=== PATIENT | female | born 1960 | race African-American/Black ===

== ENCOUNTER 2016-12-04 11:10 | Inpatient (IN) | payer OTHER ==
[2016-12-04 13:07] VITALS: BMI 27.4
--- NOTE | 2016-12-04 17:03 | HP ---
COWS - Scale Resting Pulse: 0= CO 80 or Below Sweatin= Chills/Flushing Restless Observation: 1= Difficult to Sit Still Pupil Size: 1= Pupils >than Normal Bone or Joint Aches: 2= Severe Diffuse Aches Runny Nose/ Eye Tearin= Nasal Congestion GI Upset > 30mins: 1= Stomach Cramp Tremor Observation: 1= Tremor [place], Not Seen Yawning Observation: 1= 1-2x During Session Anxiety or Irritability: 2=Irritable/Anxious Goose Flesh Skin: 3=Piloerection COWS Score: 14 CIWA Score - CIWA Score Nausea/Vomitin-Mild Nausea/No Vomiting Muscle Tremors: 4-Moderate,w/Arms Extend Anxiety: 4-Mod. Anxious/Guarded Agitation: 4-Moderately Restless Paroxysmal Sweats: 1-Minimal Palms Moist Orientation: 1-Uncertain about Date Tacttile Disturbances: 0-None Auditory Disturbances: 0-None Visual Disturbances: 0-None Headache: 0-None Present CIWA-Ar Total Score: 15 Admission ROS S - HPI Chief Complaint: withdrawal sx patient requests methadone for opiate detox, librium for alcohol and ativan detox, "valium makes me sleepy" Allergies/Adverse Reactions: Allergies Allergy/AdvReac Type Severity Reaction Status Date / Time ketorolac tromethamine Allergy Severe Itching Verified 12/04/16 18:21 [From Toradol] penicillin G Allergy Severe Itching Verified 12/04/16 18:21 History of Present Illness: 56 years old female with long history of alcohol opiate ativan nicotine dependence, has gerd, asthma, pre diabetes dietary control, neuropathy, lower back pain x 10 years, and bipolar ii is admitted to detox Exam Limitations: No Limitations - Ebola screening Have you traveled outside of the country in the last 21 days: No Have you had contact with anyone from an Ebola affected area: No Have you been sick,other than usual withdrawal symptoms: No Do you have a fever: No - Review of Systems Constitutional: Chills, Changes in sleep, Weight Stable EENT: reports: Dental Problems (upper and lower denture) Respiratory: reports: SOB with Exertion (treated with prednison and antibiotic "few days ago") Cardiac: reports: No Symptoms Reported GI: reports: Constipated, Nausea, Poor Fluid Intake, Indigestion, Abdominal cramping : reports: No Symptoms Reported Musculoskeletal: reports: Back Pain (chronic back pain x 10+ years), Joint Pain (both feet joints callus removal 10/2016) Integumentary: reports: Change in Color, Change in Hair/Nails (right and left feet toes) Neuro: reports: Tremors Endocrine: reports: No Symptoms Reported Hematology: reports: No Symptoms Reported Psychiatric: reports: Judgement Intact, Anxious, Depressed Other Systems: Reviewed and Negative Patient History - Patient Medical History Hx Anemia: No Hx Asthma: Yes Hx Chronic Obstructive Pulmonary Disease (COPD): No Hx Cancer: No Hx Cardiac Disorders: No Hx Congestive Heart Failure: No Hx Hypertension: No Hx Hypercholesterolemia: No Hx Pacemaker: No HX Cerebrovascular Accident: No Hx Seizures: No Hx Dementia: No Hx Diabetes: Yes (dietary control) Hx Gastrointestinal Disorders: Yes Hx Liver Disease: No Hx Genitourinary Disorders: No Hx Sexually Transmitted Disorders: No Hx Renal Disease (ESRD): No Hx Thyroid Disease: No Hx Human Immunodeficiency Virus (HIV): No Hx Hepatitis C: No Hx Depression: No (on Celexa) Hx Suicide Attempt: Yes (2011 overdose) Hx Bipolar Disorder: Yes Hx Schizophrenia: No - Patient Surgical History Past Surgical History: Yes Hx Neurologic Surgery: No Hx Cataract Extraction: No Hx Cardiac Surgery: No Hx Lung Surgery: No Hx Breast Surgery: No Hx Breast Biopsy: No Hx Abdominal Surgery: No Hx Appendectomy: No Hx Cholecystectomy: No Hx Genitourinary Surgery: No Hx Section: No Hx Orthopedic Surgery: Yes (knees replaced ) Hx Hysterectomy: Yes (2003) Other Surgical History: 2016 Anesthesia Reaction: No - PPD History Previous Implant?: Yes Documented Results: Negative w/o proof Implanted On Prior [facility] Admission?: Yes Date: 08/04/15 PPD to be Administered?: Yes - Reproductive History Patient is a Female of Child Bearing Age (11 -55 yrs old): No Last Menstrual Period: 08/15/07 Patient : No - Smoking Cessation Smoking history: Current every day smoker Have you smoked in the past 12 months: Yes Aproximately how many cigarettes per day: 15 Cigars Per Day: 0 Hx Chewing Tobacco Use: No Initiated information on smoking cessation: Yes 'Breaking Loose' booklet given: 12/04/16 - Substance & Tx. History Hx Alcohol Use: Yes Hx Substance Use: Yes Substance Use Type: Alcohol, Opiates, Tranquilizers Hx Substance Use Treatment: Yes - Substances Abused Alcohol Route: Oral Frequency: Daily Amount used: fifth volka Age of first use: 12 Date of Last Use: 12/04/16 Benzodiazepine (ativan Route: Oral Frequency: Daily Age of first use: 54 Date of Last Use: 12/04/16 endocet Route: Oral Frequency: Daily Age of first use: 53 Date of Last Use: 12/04/16 Family Disease History - Family Disease History Family Disease History: Diabetes: Sister, Heart Disease: Mother, Sister, Daughter, Other: Father (no contact) Admission Physical Exam S - Vital Signs Vital Signs: Vital Signs - 24 hr 12/04/16 13:04 Temperature 97 F L Pulse Rate 68 Respiratory 20 Rate Blood Pressure 123/71 - Physical General Appearance: Yes: Nourished, Appropriately Dressed, Mild Distress, Tremorous, Irritable, Sweating, Anxious HEENTM: Yes: Hearing grossly Normal, Normal ENT Inspection, Normocephalic, Normal Voice Respiratory: Yes: Chest Non-Tender, No Respiratory Distress, No Accessory Muscle Use, Wheezing, Expiration Neck: Yes: Supple, Trachea in good position Breast: Yes: Breasts Symetrical Cardiology: Yes: Regular Rhythm, Regular Rate, S1, S2 Abdominal: Yes: Non Tender, Soft, Decreased BS Genitourinary: Yes: Within Normal Limits Back: Yes: Normal Inspection Musculoskeletal: Yes: Gait Steady, Back pain, Joint swelling (right toe), Muscle Pain (right knee) Extremities: Yes: Non-Tender, Tremors 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: Yes: Alert, Motor Strength 5/5, Depressed Affect Integumentary: Yes: Warm, Other (right foot hyperpigmented post callus removal) Lymphatic: Yes: Within Normal Limits - Diagnostic (1) Bronchial asthma Current Visit: Yes Status: Acute Qualifiers: Asthma severity: mild intermittent Asthma complication type: with acute exacerbation Qualified Code(s): J45.21 - Mild intermittent asthma with (acute) exacerbation Comment: treated with antibiotic and prednison last dose "few weeks ago" (2) Alcohol dependence with uncomplicated withdrawal Current Visit: Yes Status: Acute (3) Opioid dependence with withdrawal Current Visit: Yes Status: Acute (4) Sedative, hypnotic or anxiolytic dependence with withdrawal, uncomplicated Current Visit: Yes Status: Acute (5) GERD (gastroesophageal reflux disease) Current Visit: Yes Status: Acute Qualifiers: Esophagitis presence: without esophagitis Qualified Code(s): K21.9 - Gastro-esophageal reflux disease without esophagitis (6) Pre-diabetes Current Visit: Yes Status: Acute Comment: dietary control (7) Neuropathic arthropathy Current Visit: Yes Status: Acute Comment: lyrica 300 mg po bid (8) Constipation Current Visit: Yes Status: Acute Qualifiers: Constipation type: slow transit constipation Qualified Code(s): K59.01 - Slow transit constipation (9) Bipolar II disorder Current Visit: Yes Status: Suspected Cleared for Admission [facility] - Detox or Rehab [facility] Level of Care: Medically Managed Detox Regimen/Protocol: Methadone/Librium [facility] Breath Alcohol Content Breath Alcohol Content: 0 Urine Pregancy Test - Result Urine Test Results: Negative- NO Line Present Urine Drug Screen - Results Drug Screen Negative: No Urine Drug Screen Results: BZO-Benzodiazepines, OXY-Oxycodone
[2016-12-04] MEDS ORDERED: MAGNESIUM HYDROX 2400MG/30ML ORAL SUSPENSION 30 ML CUP PO PRN (17:30)
[2016-12-04] MEDS ORDERED: MAG HYDROX/AL HYDROX/SIMETH 30 ML UNIT-DOSE CUP PO PRN (17:30)
[2016-12-04] MEDS ORDERED: MAGNESIUM CITRATE 300 ML BOTTLE PO PRN (17:30)
[2016-12-04] MEDS ORDERED: chlordiazePOXIDE HCL 25 MG CAPSULE PO PRN (17:30)
[2016-12-04] MEDS ORDERED: guaiFENesin/D-METHORPHAN HB 10 ML UNIT-DOSE CUPS PO PRN (17:30)
[2016-12-04] MEDS ORDERED: P-EPHED 60MG/TRIPROLIDI 2.5MG TABLET PO PRN (17:30)
[2016-12-04] MEDS ORDERED: LOPERAMIDE HCL 2 MG CAPSULE PO PRN (17:30)
[2016-12-04] MEDS ORDERED: NICOTINE POLACRILEX 4 MG GUM BUC PRN (17:30)
[2016-12-04] MEDS ORDERED: MENTHOL/PHENOL 1 EACH UD MM PRN (17:30)
[2016-12-04] MEDS ORDERED: ACETAMINOPHEN 325 MG TABLET (FP) PO PRN (17:30)
[2016-12-04] MEDS ORDERED: ALBUTEROL SO4 6.7 GM HFA INHALER IH PRN (17:34)
[2016-12-04] MEDS ORDERED: METHADONE HCL 10 MG TABLET (FOR DETOX USE ONLY) PO ONE ×2 (18:45→23:00)
[2016-12-04] MEDS ORDERED: diphenhydrAMINE HCL 50 MG CAPSULE PO PRN (22:00)
[2016-12-04] MEDS: PREGABALIN 75 MG CAPSULE PO SCH (22:15)
[2016-12-04] MEDS: THIAMINE HCL 100 MG TABLET (FP) PO SCH (22:15)
[2016-12-04] MEDS: PANTOPRAZOLE 40 MG TABLET (FP) PO SCH (22:16)
[2016-12-04] MEDS: chlordiazePOXIDE HCL 25 MG CAPSULE PO SCH (22:16)
[2016-12-04] MEDS: MONTELUKAST NA 10 MG TABLET PO SCH (22:18)
[2016-12-04] MEDS: BUDESONIDE/FORMETEROL FUMARATE 160/4.5 mcg INHALER IH SCH (23:26)
[2016-12-05 00:13] LABS: URINE APPEARANCE CLEAR; URINE BILIRUBIN NEGATIVE (NEGATIVE); URINE BLOOD NEGATIVE (NEGATIVE); URINE COLOR LTYELLOW; URINE GLUCOSE (UA) NEGATIVE (NEGATIVE); URINE KETONE NEGATIVE (NEGATIVE); URINE LEUK ESTERASE NEGATIVE (NEGATIVE); URINE NITRITE NEGATIVE (NEGATIVE); URINE PROTEIN NEGATIVE (NEGATIVE); URINE UROBILINOGEN NEGATIVE E.U./dl (0.2-1.0)
[2016-12-05] MEDS: LACTULOSE 20 GM/30 ML UDC (FOR ORAL USE ONLY) PO PRN (02:19)
[2016-12-05] MEDS: ALBUTEROL SO4 6.7 GM HFA INHALER IH PRN ×3 (03:29→22:40)
[2016-12-05] MEDS: chlordiazePOXIDE HCL 25 MG CAPSULE PO SCH ×4 (05:43→22:41)
[2016-12-05] MEDS: ALBUTEROL SO4 2.5/IPRATROPIUM 0.5 INH SOL 3 ML VIAL.NEB. NEB PRN (08:10)
[2016-12-05] MEDS ORDERED: NICOTINE 21 MG/24 HOURS TOPICAL PATCH TD SCH (10:00)
[2016-12-05] MEDS ORDERED: METHADONE HCL 10 MG TABLET (FOR DETOX USE ONLY) PO SCH (10:00)
[2016-12-05] MEDS: PANTOPRAZOLE 40 MG TABLET (FP) PO SCH ×2 (10:29→22:41)
[2016-12-05] MEDS: PRENATAL VITAMINS W/ FOLIC ACID TABLET (FP) PO SCH (10:29)
[2016-12-05] MEDS: PREGABALIN 75 MG CAPSULE PO SCH ×2 (10:30→22:41)
[2016-12-05 10:31] LABS: MCH 30.4 pg (25.7-33.7); MEAN CELL VOLUME 92.4 fl (80-96); MEAN PLT VOLUME 9.4 fl (7.5-11.1); PLATELET COUNT 158 K/MM3 (134-434); RDW 14.5 % (11.6-15.6); WHITE BLOOD COUNT 6.4 K/mm3 (4.0-10.0)
[2016-12-05] MEDS: BUDESONIDE/FORMETEROL FUMARATE 160/4.5 mcg INHALER IH SCH ×2 (10:31→22:40)
[2016-12-05 10:58] LABS: ALBUMIN 3.2 g/dl (3.4-5.0); ALK PHOS 61 U/L (45-117); ANION GAP 8 (8-16); BILIRUBIN,TOTAL 0.4 mg/dL (0.2-1.0); CALCIUM 8.6 mg/dL (8.5-10.1); CO2 28 mmol/L (21-32); COCKROFT - GAULT 104.7625; CREATININE 0.7 mg/dL (0.55-1.02); GLUCOSE,RANDOM 97 mg/dL (74-106); SGOT/AST 18 U/L (15-37); SGPT/ALT 29 U/L (12-78); TOT PROT 5.7 g/dl (6.4-8.2)
[2016-12-05] MEDS: NICOTINE TD SCH (12:36)
--- NOTE | 2016-12-05 13:03 | PN ---
S CIWA - CIWA Score Nausea/Vomitin Muscle Tremors: 3 Anxiety: 3 Agitation: 2 Paroxysmal Sweats: 1-Minimal Palms Moist Orientation: 0-Oriented Tacttile Disturbances: 1-Very Mild Itch/Numbness Auditory Disturbances: 1-Very Mild Visual Disturbances: 1-Very Mild Sensitivity Headache: 2-Mild CIWA-Ar Total Score: 17 [facility] Progress Note (SOAP) Subjective: ALERT,IRRITABLE,ANXIOUS,INTERRUPTED SLEEP,PAIN IN THE BODY AND BACK Objective: 12/05/16 13:01 Vital Signs Temperature 97.9 F 12/05/16 06:34 Pulse Rate 56 L 12/05/16 10:21 Respiratory Rate 16 12/05/16 10:21 Blood Pressure 120/66 12/05/16 10:21 O2 Sat by Pulse Oximetry (%) EKG NSR,NORMAL ECG Laboratory Last Values WBC 6.4 K/mm3 (4.0-10.0) 12/05/16 08:00 RBC 4.07 M/mm3 (3.60-5.2) 12/05/16 08:00 Hgb 12.4 GM/dL (10.7-15.3) D 12/05/16 08:00 Hct 37.5 % (32.4-45.2) D 12/05/16 08:00 MCV 92.4 fl (80-96) 12/05/16 08:00 MCHC 33.0 g/dl (32.0-36.0) 12/05/16 08:00 RDW 14.5 % (11.6-15.6) 12/05/16 08:00 Plt Count 158 K/MM3 (134-434) D 12/05/16 08:00 MPV 9.4 fl (7.5-11.1) 12/05/16 08:00 Sodium 144 mmol/L (136-145) 12/05/16 08:00 Potassium 4.4 mmol/L (3.5-5.1) 12/05/16 08:00 Chloride 108 mmol/L (98-107) H 12/05/16 08:00 Carbon Dioxide 28 mmol/L (21-32) 12/05/16 08:00 Anion Gap 8 (8-16) 12/05/16 08:00 BUN 19 mg/dL (7-18) H 12/05/16 08:00 Creatinine 0.7 mg/dL (0.55-1.02) 12/05/16 08:00 Creat Clearance w eGFR > 60 (>60) 12/05/16 08:00 Random Glucose 97 mg/dL (74-106) 12/05/16 08:00 Calcium 8.6 mg/dL (8.5-10.1) 12/05/16 08:00 Total Bilirubin 0.4 mg/dL (0.2-1.0) 12/05/16 08:00 AST 18 U/L (15-37) 12/05/16 08:00 ALT 29 U/L (12-78) D 12/05/16 08:00 Alkaline Phosphatase 61 U/L (45-117) D 12/05/16 08:00 Total Protein 5.7 g/dl (6.4-8.2) L 12/05/16 08:00 Albumin 3.2 g/dl (3.4-5.0) L D 12/05/16 08:00 Urine Color Ltyellow 12/04/16 21:16 Urine Appearance Clear 12/04/16 21:16 Urine pH 5.0 (5.0-8.0) 12/04/16 21:16 Ur Specific [place] 1.024 (1.001-1.035) 12/04/16 21:16 Urine Protein Negative (NEGATIVE) 12/04/16 21:16 Urine Glucose (UA) Negative (NEGATIVE) 12/04/16 21:16 Urine Ketones Negative (NEGATIVE) 12/04/16 21:16 Urine Blood Negative (NEGATIVE) 12/04/16 21:16 Urine Nitrite Negative (NEGATIVE) 12/04/16 21:16 Urine Bilirubin Negative (NEGATIVE) 12/04/16 21:16 Urine Urobilinogen Negative E.U./dl (0.2-1.0) 12/04/16 21:16 Ur Leukocyte Esterase Negative (NEGATIVE) 12/04/16 21:16 RPR Titer Nonreactive (NONREACTIVE) 12/05/16 08:00 Assessment: 12/05/16 13:02 WITHDRAWAL SYMPTOM Plan: CONTINUE DETOX
--- NOTE | 2016-12-05 17:07 | CONSULT ---
[facility] Psychiatric Consult - Data Date of interview: 12/05/16 Admission source: [facility] Identifying data: Readmission to [facility] for this 56 y/o AA female seeking detox treatment for alcohol,benzodiazepine and opiate dependence.Patient is ,a mother of five,domiciled,unemployed and supported on SSI benefits. Substance Abuse History: - Smoking Cessation. Smoking history: Current every day smoker. Have you smoked in the past 12 months: Yes. Aproximately how many cigarettes per day: 15. Cigars Per Day: 0. Hx Chewing Tobacco Use: No. Initiated information on smoking cessation: Yes. 'Breaking Loose' booklet given : 12/04/16. - Substance & Tx. History. Hx Alcohol Use: Yes. Hx Substance Use : Yes. Substance Use Type: Alcohol, Opiates, Tranquilizers. Hx Substance Use Treatment: Yes. - Substances Abused. Alcohol. Route: Oral. Frequency: Daily. Amount used: fifth volka. Age of first use: 12. Date of Last Use: . Benzodiazepine (ativan. Route: Oral. Frequency: Daily. Age of first use: 54. Date of Last Use: 12/04/16. endocet. Route: Oral. Frequency: Daily. Age of first use: 53. Date of Last Use: 12/04/16. Confirmed by patient. Medical History: History of bilateral kne replacement,GERD,diabetes mellitus ( diet-controlled),neuropathy,arthritis irritable bowel syndrome and bronchial asthma.Hysterectomy in 2003. Psychiatric History: No history of psychiatric hospitalizations.Diagnosed with Bipolar Disorder,Panic Disorder,PTSD (confirmed by referral letter;copy in chart ).Ms Esteves is followed by [facility] in [facility] ([phone]).Prescribed celexa 20 mg/day + ambien 10 mg/ hs + abilify 5 mg/day.No reported history of suicide attempts. Physical/Sexual Abuse/Trauma History: Not discussed by patient. Additional Comment: Urine Drug Screen Results: BZO-Benzodiazepines, OXY- Oxycodone.Noted. Mental Status Exam - Mental Status Exam Alert and Oriented to: Time (partial orietation to time :monnth,year,day of week but not exact date), Place, Person Cognitive Function: Impaired Patient Appearance: Well Groomed Mood: Withdrawn Affect: Mood Congruent, Constricted Patient Behavior: Sedated, Fatigued, Cooperative (marginally cooperative) Speech Pattern: Delayed, Slurred, Garbled (at times) Voice Loudness: Moderately Soft/Quiet Thought Process: Disorganized, Disoriented Thought Disorder: Not Present Hallucinations: Denies Suicidal Ideation: Denies Homicidal Ideation: Denies Insight/Judgement: Poor Sleep: Fair Appetite: Good Muscle strength/Tone: Normal Gait/Station: Other (unsteady gait observed earlier due to sedation) Psychiatric Findings - Problem List ([place] 1, 2,3) (1) Alcohol dependence with uncomplicated withdrawal Current Visit: Yes Status: Acute (2) Opioid dependence with withdrawal Current Visit: Yes Status: Acute (3) Sedative, hypnotic or anxiolytic dependence with withdrawal, uncomplicated Current Visit: Yes Status: Acute (4) Nicotine dependence Current Visit: No Status: Acute Qualifiers: Nicotine product type: cigarettes Substance use status: uncomplicated Qualified Code(s): F17.210 - Nicotine dependence, cigarettes, uncomplicated (5) Bipolar disorder Current Visit: Yes Status: Chronic (6) Post traumatic stress disorder (PTSD) Current Visit: Yes Status: Chronic Comment: According to her psychiatrist,Dr Romina Tejeda. (7) Panic disorder Current Visit: No Status: Chronic Comment: As per Dr Romina Tejeda. (8) Bronchial asthma Current Visit: Yes Status: Chronic Qualifiers: Asthma severity: mild intermittent Asthma complication type: with acute exacerbation Qualified Code(s): J45.21 - Mild intermittent asthma with (acute) exacerbation Comment: treated with antibiotic and prednison last dose "few weeks ago" (9) GERD (gastroesophageal reflux disease) Current Visit: Yes Status: Chronic Qualifiers: Esophagitis presence: without esophagitis Qualified Code(s): K21.9 - Gastro-esophageal reflux disease without esophagitis (10) Neuropathic arthropathy Current Visit: Yes Status: Chronic Comment: lyrica 300 mg po bid (11) Pre-diabetes Current Visit: Yes Status: Acute Comment: dietary control (12) Arthritis Current Visit: Yes Status: Chronic - Initial Treatment Plan Initial Treatment Plan: Psychoeducation.Detoxification.Medications (celexa, ambien) are held due to marked sedation.Observation.
[2016-12-05] MEDS: THIAMINE HCL 100 MG TABLET (FP) PO SCH (22:40)
[2016-12-05] MEDS: MONTELUKAST NA 10 MG TABLET PO SCH (22:41)
[2016-12-06] MEDS: chlordiazePOXIDE HCL 25 MG CAPSULE PO SCH ×3 (06:02→17:27)
[2016-12-06] MEDS: ALBUTEROL SO4 6.7 GM HFA INHALER IH PRN ×3 (06:16→23:00)
[2016-12-06] MEDS: LACTULOSE 20 GM/30 ML UDC (FOR ORAL USE ONLY) PO PRN ×2 (06:18→23:16)
[2016-12-06] MEDS: PRENATAL VITAMINS W/ FOLIC ACID TABLET (FP) PO SCH (10:07)
[2016-12-06] MEDS: PANTOPRAZOLE 40 MG TABLET (FP) PO SCH ×2 (10:07→23:03)
[2016-12-06] MEDS: NICOTINE TD SCH (10:07)
[2016-12-06] MEDS: BUDESONIDE/FORMETEROL FUMARATE 160/4.5 mcg INHALER IH SCH ×2 (10:08→23:00)
[2016-12-06] MEDS: PREGABALIN 75 MG CAPSULE PO SCH ×2 (10:08→23:01)
[2016-12-06] MEDS: METHADONE HCL 5 MG TABLET (FOR DETOX USE ONLY) PO SCH (10:09)
--- NOTE | 2016-12-06 14:45 | PN ---
[facility] CIWA - CIWA Score Nausea/Vomitin Muscle Tremors: 3 Anxiety: 2 Agitation: 3 Paroxysmal Sweats: 1-Minimal Palms Moist Orientation: 0-Oriented Tacttile Disturbances: 1-Very Mild Itch/Numbness Auditory Disturbances: 1-Very Mild Visual Disturbances: 1-Very Mild Sensitivity Headache: 2-Mild CIWA-Ar Total Score: 17 [facility] COWS - Scale Resting Pulse: 1= [place] 81-100 Sweatin= Chills/Flushing Restless Observation: 3= Extraneous Movement Pupil Size: 1= Pupils >than Normal Bone or Joint Aches: 2= Severe Diffuse Aches Runny Nose/ Eye Tearin= Runny Nose/Eyes GI Upset > 30mins: 2= Nausea/Diarrhea Tremor Observation of Outstretched Hands: 2= Slight Tremor Visible Yawning Observation: 1= 1-2x During Session Anxiety or Irritability: 2=Irritable/Anxious Goose Flesh Skin: 0=Smooth Skin COWS Score: 17 [facility] Progress Note (SOAP) Subjective: ALERT,IRRITABLE,ANXIOUS,INTERRUPTED SLEEP,TREMOR,PAIN IN THE BODY,BACK,RIGHT KNEE,RIGHT FOOT Objective: 12/06/16 14:45 Vital Signs Temperature 97 F L 12/06/16 14:20 Pulse Rate 49 L 12/06/16 14:20 Respiratory Rate 18 12/06/16 14:20 Blood Pressure 129/73 12/06/16 14:20 O2 Sat by Pulse Oximetry (%) Assessment: 12/06/16 14:45 WITHDRAWAL SYMPTOM Plan: CONTINUE DETOX
[2016-12-06] MEDS: HYDROCORTISONE 1% TOPICAL CREAM 30 GM TUBE TP SCH ×2 (15:26→23:02)
[2016-12-06] MEDS: ALBUTEROL SO4 2.5/IPRATROPIUM 0.5 INH SOL 3 ML VIAL.NEB. NEB PRN (17:22)
[2016-12-06] MEDS: CYCLOBENZAPRINE HCL 10 MG TABLET (FP) PO PRN (23:02)
[2016-12-06] MEDS: chlordiazePOXIDE 5 MG CAPSULE PO SCH (23:02)
[2016-12-06] MEDS: THIAMINE HCL 100 MG TABLET (FP) PO SCH (23:03)
[2016-12-06] MEDS: MONTELUKAST NA 10 MG TABLET PO SCH (23:03)
[2016-12-07] MEDS: chlordiazePOXIDE 5 MG CAPSULE PO SCH ×3 (06:03→18:08)
--- NOTE | 2016-12-07 08:47 | EKG ---
Test Reason : Blood Pressure : / mmHG Vent. Rate : 060 BPM Atrial Rate : 060 BPM P-R Int : 148 ms QRS Dur : 080 ms QT Int : 420 ms P-R-T Axes : 066 026 031 degrees QTc Int : 420 ms NORMAL SINUS RHYTHM NORMAL ECG NO PREVIOUS ECGS AVAILABLE Confirmed by ASUNCION TILLMAN MD ([id number]) on 12/07/2016 8:47:17 AM Referred By: Confirmed By:ASUNCION TILLMAN MD
[2016-12-07] MEDS ORDERED: ZOLPIDEM TARTRATE 10 MG TABLET (PARK CARE ONLY) PO PRN (09:10)
--- NOTE | 2016-12-07 09:17 | PN ---
Psychiatric Progress Note Vital Signs: Vital Signs Period Temp Pulse Resp BP Sys/[place] Pulse Ox Last 24 Hr 97 F-97.9 F 49-58 16-18 104-129/64-73 Date of Session: 12/07/16 Chief Complaint:: My medications HPI: Patient reprots taking prior to admission: Abilify 2mg poqd. Celexa 40mg poqd. Ambien 10mg po qhs. Reports did not started medications on admission due to oversedation on admission Current Medications: Active Medications Generic Name Dose Route Start Last Admin Trade Name Freq PRN Reason Stop Dose Admin Acetaminophen 650 mg 12/04/16 17:30 Tylenol - PO Q4H PRN FEVER OR PAIN Al Hydroxide/Mg Hydroxide 30 ml 12/04/16 17:30 Mylanta Oral Suspension - PO Q6H PRN DYSPEPSIA Albuterol Sulfate 2 puff 12/05/16 02:38 12/06/16 23:00 Ventolin Hfa Inhaler - IH 2 puff Q4H PRN Administration SHORT OF BREATH/WHEEZING Albuterol/Ipratropium 1 amp 12/04/16 17:34 12/06/16 17:22 Duoneb - NEB 1 amp Q6H PRN Administration SHORTNESS OF BREATH Aripiprazole 2 mg 12/07/16 10:00 Abilify PO DAILY EMILIANO Budesonide/Formoterol Fumarate 1 puff 12/04/16 22:00 12/06/16 23:00 Symbicort 160/4.5mcg - IH 1 puff BID EMILIANO Administration Chlordiazepoxide HCl 10 mg 12/07/16 23:00 Librium - PO 12/08/16 17:01 [id number] EMILIANO Chlordiazepoxide HCl 25 mg 12/04/16 17:30 12/05/16 01:55 Librium - PO 12/07/16 17:32 25 mg Q4H PRN Administration WITHDRAWAL(CONT SUBST) Chlordiazepoxide HCl 15 mg 12/06/16 23:00 12/07/16 06:03 Librium - PO 12/07/16 17:01 15 mg [id number] EMILIANO Administration Citalopram Hydrobromide 40 mg 12/07/16 10:00 Celexa - PO DAILY EMILIANO Cyclobenzaprine HCl 10 mg 12/06/16 10:22 12/06/16 23:02 Flexeril - PO 10 mg TID PRN Administration MUSCLE SPASMS Diphenhydramine HCl 50 mg 12/04/16 22:00 Benadryl - PO HSMR1 PRN INSOMNIA Eucalyptus/Menthol/Phenol/Sorbitol 1 each 12/04/16 17:30 Cepastat Lozenge - MM Q4H PRN SORE THROAT Guaifenesin 10 ml 12/04/16 17:30 12/06/16 06:16 Robitussin Dm - PO 10 ml Q6H PRN Administration COUGH Hydrocortisone 1 applic 12/06/16 14:00 12/06/16 23:02 Hytone 1% Cream - TP 1 applic TID EMILIANO Administration Lactulose 20 gm 12/04/16 17:35 12/06/16 23:16 Cephulac (Oral Use) PO 20 gm BID PRN Administration CONSTIPATION Loperamide HCl 4 mg 12/04/16 17:30 Imodium - PO Q6H PRN DIARRHEA Magnesium Citrate 300 ml 12/04/16 17:30 Citroma - PO Q48H PRN CONSTIPATION Magnesium Hydroxide 30 ml 12/04/16 17:30 Milk Of Magnesia - PO DAILY PRN CONSTIPATION Methadone HCl 10 mg 12/08/16 10:00 Dolophine - PO 12/08/16 10:01 DAILY EMILIANO Methadone HCl 15 mg 12/06/16 10:00 12/06/16 10:09 Dolophine - PO 12/07/16 10:01 15 mg DAILY EMILIANO Administration Methadone HCl 5 mg 12/09/16 06:00 Dolophine - PO 12/09/16 06:01 DAILY@0600 EMILIANO Montelukast Sodium 10 mg 12/04/16 22:00 12/06/16 23:03 Singulair - PO 10 mg HS EMILIANO Administration Nicotine Polacrilex 4 mg 12/04/16 17:30 Nicorette Gum - BUC Q2H PRN NICOTINE REPLACEMENT RX Non-Formulary Medication 1 each 12/05/16 10:00 12/06/16 10:07 Nicotine [Nicotine Patch] TD 1 each DAILY EMILIANO Administration Non-Formulary Medication 2 puff 12/05/16 11:55 12/06/16 15:50 Albuterol Sulfate Inhaler - [Ventolin Hfa Inhaler -] IH 2 puff Q4H PRN Administration ASTHMA Pantoprazole Sodium 40 mg 12/04/16 22:00 12/06/16 23:03 Protonix - PO 40 mg BID EMILIANO Administration Pregabalin 300 mg 12/04/16 22:00 12/06/16 23:01 Lyrica - PO 12/11/16 10:01 300 mg BID EMILIANO Administration Multivit/Folic Acid/Iron 1 tab 12/05/16 10:00 12/06/16 10:07 Vitamins (Sjr) - PO 1 tab DAILY EMILIANO Administration Pseudoephedrine/Triprolidine 1 combo 12/04/16 17:30 Actifed - PO TID PRN NASAL CONGESTION Thiamine HCl 100 mg 12/04/16 22:00 12/06/16 23:03 Vitamin B1 - PO 100 mg HS EMILIANO Administration Zolpidem Tartrate 10 mg 12/07/16 09:10 Ambien - PO HS PRN INSOMNIA Medication(s) Change(s): Abilify 2mg poqd. Celexa 40mg poqd. Ambien 10mg po qhs Mental Status Exam - Mental Status Exam Alert and Oriented to: Person Cognitive Function: Fair Patient Appearance: Well Groomed Mood: Anxious Affect: Mood Congruent Patient Behavior: Cooperative Speech Pattern: Appropriate Voice Loudness: Mildly Soft/Quiet Thought Process: Goal Oriented Thought Disorder: Being Controlled Hallucinations: Denies Suicidal Ideation: Denies Homicidal Ideation: Denies Sleep: Difficulty falling asleep Appetite: Weight loss Muscle strength/Tone: Normal Gait/Station: Shuffling Additional Comments: Abilify 2mg poqd. Celexa 40mg poqd. Ambien 10mg po qhs Psychiatric Treatment Plan - Problem List (1) Alcohol dependence with uncomplicated withdrawal Current Visit: Yes (2) Opioid dependence with withdrawal Current Visit: Yes (3) Sedative, hypnotic or anxiolytic dependence with withdrawal, uncomplicated Current Visit: Yes (4) Bipolar disorder Current Visit: Yes (5) Neuropathic arthropathy Current Visit: Yes Comment: lyrica 300 mg po bid (6) Bipolar II disorder Current Visit: Yes (7) Nicotine dependence Current Visit: No Qualifiers: Nicotine product type: cigarettes Substance use status: uncomplicated Qualified Code(s): F17.210 - Nicotine dependence, cigarettes, uncomplicated (8) EtOH dependence Current Visit: No Qualifiers: Complication of substance-induced condition: uncomplicated (9) Opiate dependence Current Visit: No Qualifiers: Complication of substance-induced condition: uncomplicated (10) Panic disorder Current Visit: No Comment: As per Dr Romina Tejeda. Initial treatment plan: Abilify 2mg poqd. Celexa 40mg poqd. Ambien 10mg po qhs
[2016-12-07] MEDS ORDERED: TRIMETHOBENZAMIDE HCL 200MG/2ML INJ IM ONE (10:25)
[2016-12-07] MEDS: CITALOPRAM HYDROBROMIDE 20 MG TABLET (FP) PO SCH (11:00)
[2016-12-07] MEDS: PRENATAL VITAMINS W/ FOLIC ACID TABLET (FP) PO SCH (11:00)
[2016-12-07] MEDS: PANTOPRAZOLE 40 MG TABLET (FP) PO SCH ×2 (11:00→22:57)
[2016-12-07] MEDS: BUDESONIDE/FORMETEROL FUMARATE 160/4.5 mcg INHALER IH SCH ×2 (11:01→23:02)
[2016-12-07] MEDS: ARIPiprazole 2 MG TABLET PO SCH (11:02)
[2016-12-07] MEDS: METHADONE HCL 5 MG TABLET (FOR DETOX USE ONLY) PO SCH (11:02)
[2016-12-07] MEDS: NICOTINE TD SCH (11:06)
--- NOTE | 2016-12-07 11:56 | PN ---
[facility] Progress Note (SOAP) Subjective: interrupted sleep, sweats,constipation Objective: 12/07/16 11:53 Vital Signs Temperature 98.2 F 12/07/16 11:46 Pulse Rate 57 L 12/07/16 11:46 Respiratory Rate 16 12/07/16 11:46 Blood Pressure 115/72 12/07/16 11:46 O2 Sat by Pulse Oximetry (%) Laboratory Tests 12/04/16 12/05/16 12/05/16 21:16 08:00 08:00 WBC 6.4 RBC 4.07 Hgb 12.4 D Hct 37.5 D MCV 92.4 MCHC 33.0 RDW 14.5 Plt Count 158 D MPV 9.4 Sodium 144 Potassium 4.4 Chloride 108 H Carbon Dioxide 28 Anion Gap 8 BUN 19 H Creatinine 0.7 Creat Clearance w eGFR > 60 POC Glucometer Random Glucose 97 Calcium 8.6 Total Bilirubin 0.4 AST 18 ALT 29 D Alkaline Phosphatase 61 D Total Protein 5.7 L Albumin 3.2 L D Urine Color Ltyellow Urine Appearance Clear Urine pH 5.0 Ur Specific [place] 1.024 Urine Protein Negative Urine Glucose (UA) Negative Urine Ketones Negative Urine Blood Negative Urine Nitrite Negative Urine Bilirubin Negative Urine Urobilinogen Negative Ur Leukocyte Esterase Negative RPR Titer 12/05/16 12/06/16 12/07/16 08:00 06:05 10:53 WBC RBC Hgb Hct MCV MCHC RDW Plt Count MPV Sodium Potassium Chloride Carbon Dioxide Anion Gap BUN Creatinine Creat Clearance w eGFR POC Glucometer 88 125 Random Glucose Calcium Total Bilirubin AST ALT Alkaline Phosphatase Total Protein Albumin Urine Color Urine Appearance Urine pH Ur Specific [place] Urine Protein Urine Glucose (UA) Urine Ketones Urine Blood Urine Nitrite Urine Bilirubin Urine Urobilinogen Ur Leukocyte Esterase RPR Titer Nonreactive pt aox3 sluggish 12/07/16 11:54 f/s 125 12/31/16 17:26 Assessment: 12/07/16 11:54 withdrawal sx's dm 12/07/16 11:55 12/31/16 17:27 Plan: cont detox increase fluids
[2016-12-07] MEDS: HYDROCORTISONE 1% TOPICAL CREAM 30 GM TUBE TP SCH ×2 (15:13→23:02)
[2016-12-07] MEDS: PREGABALIN 75 MG CAPSULE PO SCH (15:21)
[2016-12-07] MEDS: THIAMINE HCL 100 MG TABLET (FP) PO SCH (22:55)
[2016-12-07] MEDS: MONTELUKAST NA 10 MG TABLET PO SCH (22:57)
[2016-12-07] MEDS: LACTULOSE 20 GM/30 ML UDC (FOR ORAL USE ONLY) PO SCH (22:58)
[2016-12-07] MEDS: chlordiazePOXIDE HCL 10 MG CAPSULE PO SCH (22:58)
[2016-12-07] MEDS: PREGABALIN 100 MG CAPSULE PO SCH (22:58)
[2016-12-08] MEDS: chlordiazePOXIDE HCL 10 MG CAPSULE PO SCH ×3 (05:23→18:13)
[2016-12-08] MEDS: CYCLOBENZAPRINE HCL 10 MG TABLET (FP) PO PRN ×2 (05:37→23:03)
[2016-12-08] MEDS: HYDROCORTISONE 1% TOPICAL CREAM 30 GM TUBE TP SCH ×4 (08:10→23:34)
--- NOTE | 2016-12-08 09:40 | PN ---
BHS Progress Note (SOAP) Subjective: interrupted sleep, sweats, lbp, asthma Objective: 12/08/16 09:32 Vital Signs Temperature 97.6 F 12/08/16 06:31 Pulse Rate 81 12/08/16 06:31 Respiratory Rate 18 12/08/16 06:31 Blood Pressure 123/81 12/08/16 06:31 O2 Sat by Pulse Oximetry (%) Laboratory Tests 12/04/16 12/05/16 12/05/16 21:16 08:00 08:00 WBC 6.4 RBC 4.07 Hgb 12.4 D Hct 37.5 D MCV 92.4 MCHC 33.0 RDW 14.5 Plt Count 158 D MPV 9.4 Sodium 144 Potassium 4.4 Chloride 108 H Carbon Dioxide 28 Anion Gap 8 BUN 19 H Creatinine 0.7 Creat Clearance w eGFR > 60 POC Glucometer Random Glucose 97 Calcium 8.6 Total Bilirubin 0.4 AST 18 ALT 29 D Alkaline Phosphatase 61 D Total Protein 5.7 L Albumin 3.2 L D Urine Color Ltyellow Urine Appearance Clear Urine pH 5.0 Ur Specific [place] 1.024 Urine Protein Negative Urine Glucose (UA) Negative Urine Ketones Negative Urine Blood Negative Urine Nitrite Negative Urine Bilirubin Negative Urine Urobilinogen Negative Ur Leukocyte Esterase Negative RPR Titer 12/05/16 12/06/16 12/07/16 08:00 06:05 10:53 WBC RBC Hgb Hct MCV MCHC RDW Plt Count MPV Sodium Potassium Chloride Carbon Dioxide Anion Gap BUN Creatinine Creat Clearance w eGFR POC Glucometer 88 125 Random Glucose Calcium Total Bilirubin AST ALT Alkaline Phosphatase Total Protein Albumin Urine Color Urine Appearance Urine pH Ur Specific [place] Urine Protein Urine Glucose (UA) Urine Ketones Urine Blood Urine Nitrite Urine Bilirubin Urine Urobilinogen Ur Leukocyte Esterase RPR Titer Nonreactive pt aox3 ambulating slowly lungs minimal rhonchi left knee well headed scar mild medial swelling , decreased rom pulse ox RA 95% 12/08/16 09:33 12/08/16 09:44 Assessment: 12/08/16 09:33 withdrawal sx's h/o asthma lbp left knee pain 12/08/16 09:43 Plan: cont. detox increase fluids lidocaine patch x ray left knee
[2016-12-08] MEDS ORDERED: METHADONE HCL 10 MG TABLET (FOR DETOX USE ONLY) PO SCH (10:00)
[2016-12-08] MEDS: CITALOPRAM HYDROBROMIDE 20 MG TABLET (FP) PO SCH (11:23)
[2016-12-08] MEDS: PREGABALIN 100 MG CAPSULE PO SCH ×2 (11:23→23:02)
[2016-12-08] MEDS: PANTOPRAZOLE 40 MG TABLET (FP) PO SCH ×2 (11:23→23:03)
[2016-12-08] MEDS: ARIPiprazole 2 MG TABLET PO SCH (11:24)
[2016-12-08] MEDS: NICOTINE TD SCH (11:24)
[2016-12-08] MEDS: PRENATAL VITAMINS W/ FOLIC ACID TABLET (FP) PO SCH (11:24)
[2016-12-08] MEDS: LACTULOSE 20 GM/30 ML UDC (FOR ORAL USE ONLY) PO SCH ×2 (11:25→23:34)
[2016-12-08] MEDS: ALBUTEROL SO4 2.5/IPRATROPIUM 0.5 INH SOL 3 ML VIAL.NEB. NEB PRN ×2 (12:21→23:31)
[2016-12-08] MEDS: BUDESONIDE/FORMETEROL FUMARATE 160/4.5 mcg INHALER IH SCH ×2 (12:22→23:03)
[2016-12-08] MEDS: THIAMINE HCL 100 MG TABLET (FP) PO SCH (23:03)
[2016-12-08] MEDS: ALBUTEROL SO4 6.7 GM HFA INHALER IH PRN (23:03)
[2016-12-08] MEDS: MONTELUKAST NA 10 MG TABLET PO SCH (23:03)
[2016-12-09] MEDS ORDERED: METHADONE HCL 5 MG TABLET (FOR DETOX USE ONLY) PO SCH (06:00)
[2016-12-09] MEDS: ALBUTEROL SO4 2.5/IPRATROPIUM 0.5 INH SOL 3 ML VIAL.NEB. NEB PRN (06:19)
[2016-12-09] MEDS: HYDROCORTISONE 1% TOPICAL CREAM 30 GM TUBE TP SCH (06:19)
[2016-12-09 06:27] VITALS: BP 132/76; PULSE 66; TEMP 98.1
--- NOTE | 2016-12-09 09:09 | DS ---
[facility] Detox Discharge Summary Admission Date: 12/04/16 Discharge Date: 12/09/16 - History Present History: Alcohol Dependence, Opioid Dependence - Physical Exam Results Vital Signs: Vital Signs Temperature 98.1 F 12/09/16 06:00 Pulse Rate 66 12/09/16 06:00 Respiratory Rate 18 12/09/16 06:00 Blood Pressure 132/76 12/09/16 06:00 O2 Sat by Pulse Oximetry (%) - Treatment Hospital Course: Detox Protocol Followed, Detoxed Safely, Responded well, Discharged Condition Good - Medication Discharge Medications: Ambulatory Orders Albuterol Sulfate Inhaler - [Ventolin HFA Inhaler -] 2 puff IH Q4H PRN #1 inhaler 08/07/15 Fluticasone Prop 0.05% Nasal [Flonase -] 1 spray NS BID #0 spray 08/07/15 Pantoprazole Sodium [Protonix -] 40 mg PO BID #30 tablet.ec 08/07/15 Citalopram Hydrobromide [Celexa -] 40 mg PO DAILY 08/30/15 Aripiprazole [Abilify -] 2.5 mg PO DAILY 12/04/16 Budesonide/Formeterol Fumarate [SYMBICORT 160/4.5mcg -] 1 inh PO BID 12/04/16 Lactulose 10 gm PO PRN 12/04/16 Montelukast Na [Singulair -] 10 mg PO HS 12/04/16 Nicotine [Nicotine Patch] 1 each TD DAILY 12/04/16 Pregabalin [Lyrica -] 300 mg PO TID 12/04/16 Zolpidem Tartrate [Ambien] 10 mg PO HS 12/04/16 Aripiprazole [Abilify -] 2 mg PO DAILY #30 tablet 12/07/16 Citalopram Hydrobromide [Celexa -] 40 mg PO DAILY #30 tablet 12/07/16 Zolpidem Tartrate [Ambien] 10 mg PO HS PRN #14 tablet MDD 10 12/07/16 - Diagnosis (1) Alcohol dependence with uncomplicated withdrawal Current Visit: Yes Status: Chronic (2) Constipation Current Visit: Yes Status: Chronic Qualifiers: Constipation type: slow transit constipation Qualified Code(s): K59.01 - Slow transit constipation (3) Opioid dependence with withdrawal Current Visit: Yes Status: Chronic (4) Sedative, hypnotic or anxiolytic dependence with withdrawal, uncomplicated Current Visit: Yes Status: Chronic (5) Arthritis Current Visit: Yes Status: Chronic (6) Bipolar disorder Current Visit: Yes Status: Chronic Qualifiers: Current episode severity: unspecified (7) Bronchial asthma Current Visit: Yes Status: Chronic Qualifiers: Asthma severity: mild intermittent Asthma complication type: with acute exacerbation Qualified Code(s): J45.21 - Mild intermittent asthma with (acute) exacerbation (8) Neuropathic arthropathy Current Visit: Yes Status: Chronic (9) Bipolar II disorder Current Visit: Yes Status: Suspected (10) Nicotine dependence Current Visit: Yes Status: Chronic Qualifiers: Nicotine product type: cigarettes Substance use status: uncomplicated Qualified Code(s): F17.210 - Nicotine dependence, cigarettes, uncomplicated - AMA Did Patient Leave Against Medical Advice: No
[2016-12-09] MEDS: CITALOPRAM HYDROBROMIDE 20 MG TABLET (FP) PO SCH (09:44)
[2016-12-09] MEDS: LACTULOSE 20 GM/30 ML UDC (FOR ORAL USE ONLY) PO SCH (09:44)
[2016-12-09] MEDS: PREGABALIN 100 MG CAPSULE PO SCH (09:44)
[2016-12-09] MEDS: PANTOPRAZOLE 40 MG TABLET (FP) PO SCH (09:44)
[2016-12-09] MEDS: ARIPiprazole 2 MG TABLET PO SCH (09:45)
[2016-12-09] MEDS: BUDESONIDE/FORMETEROL FUMARATE 160/4.5 mcg INHALER IH SCH (09:47)
== END 2016-12-09 10:35 | disposition home or self-care (01) | DRG 897 ==
LOC: YASAS 11:10 → Y6N 18:16
PROVIDERS: ADMIT Internal Medicine; ATTEND Internal Medicine
PROC: HZ2ZZZZ Detoxification Services for Substance Abuse Treatment (ICD-10-PCS; principal; 2016-12-09)
DX: F11.23 Opioid dependence with withdrawal (principal); F31.81 Bipolar II disorder; J45.21 Mild intermittent asthma with (acute) exacerbation; F13.230 Sedative, hypnotic or anxiolytic dependence with withdrawal, uncomplicated; F10.230 Alcohol dependence with withdrawal, uncomplicated; F17.210 Nicotine dependence, cigarettes, uncomplicated; F41.0 Panic disorder [episodic paroxysmal anxiety]; M12.9 Arthropathy, unspecified; R73.03 Prediabetes; K21.9 Gastro-esophageal reflux disease without esophagitis; K59.01 Slow transit constipation
CPT/HCPCS: 36415; 73560-TC-LT; 80053; 81003; 85027; 86593; 93005; 93010; 94640

== ENCOUNTER 2018-01-24 17:33 | Inpatient (IN) | payer OTHER ==
[2018-01-24 19:30] VITALS: BMI 23.6
--- NOTE | 2018-01-24 21:24 | HP ---
CIWA Score - CIWA Score Nausea/Vomitin-No Nausea/No Vomiting Muscle Tremors: 3 Anxiety: 4-Mod. Anxious/Guarded Agitation: 1-Slight > Activity Paroxysmal Sweats: 3 Orientation: 1-Uncertain about Date Tacttile Disturbances: 2-Mild Itch/Numbness/Burn Auditory Disturbances: 0-None Visual Disturbances: 0-None Headache: 0-None Present CIWA-Ar Total Score: 14 Admission ROS S - HPI Chief Complaint: Alcohol withdrawal symptoms Allergies/Adverse Reactions: Allergies Allergy/AdvReac Type Severity Reaction Status Date / Time ketorolac tromethamine Allergy Severe Itching Verified 01/24/18 20:30 [From Toradol] penicillin G Allergy Severe Itching Verified 01/24/18 20:30 morphine Allergy Verified 01/24/18 20:30 sulfamethoxazole Allergy Verified 01/24/18 20:30 [From Bactrim] trimethoprim [From Bactrim] Allergy Verified 01/24/18 20:30 History of Present Illness: 57 years old female with a long history of alcohol dependence is seeking admission to detox. Patient has been to previous detox and reports 2 years of sobriety. She has medical history asthma, GERD, anxiety and depression. She denies suicide attempt and suicidal ideation at this time. - Ebola screening Have you traveled outside of the country in the last 21 days: No (N) Have you had contact with anyone from an Ebola affected area: No Have you been sick,other than usual withdrawal symptoms: No Do you have a fever: No - Review of Systems Constitutional: Loss of Appetite, Malaise, Night Sweats, Changes in sleep, Weakness EENT: reports: No Symptoms Reported Respiratory: reports: No Symptoms reported Cardiac: reports: No Symptoms Reported GI: reports: Diarrhea (x 5), Poor Appetite, Poor Fluid Intake, Abdominal cramping : reports: No Symptoms Reported Musculoskeletal: reports: No Symptoms Reported, Back Pain, Joint Pain, Muscle Pain, Muscle Weakness Integumentary: reports: No Symptoms Reported Neuro: reports: Tremors, Weakness Endocrine: reports: No Symptoms Reported Hematology: reports: No Symptoms Reported Psychiatric: reports: Anxious, Depressed Other Systems: Reviewed and Negative Patient History - Patient Medical History Hx Anemia: No Hx Asthma: Yes (Symbicort) Hx Chronic Obstructive Pulmonary Disease (COPD): No Hx Cancer: No Hx Cardiac Disorders: No Hx Congestive Heart Failure: No Hx Hypertension: No Hx Hypercholesterolemia: No Hx Pacemaker: No HX Cerebrovascular Accident: No Hx Seizures: No Hx Dementia: No Hx Diabetes: No Hx Gastrointestinal Disorders: Yes (GERD- Protonix) Hx Liver Disease: No Hx Genitourinary Disorders: No Hx Sexually Transmitted Disorders: No Hx Renal Disease (ESRD): No Hx Thyroid Disease: No Hx Human Immunodeficiency Virus (HIV): No Hx Hepatitis C: No Hx Depression: No (on Celexa) Hx Suicide Attempt: Yes (2011 overdose) Hx Bipolar Disorder: Yes Hx Schizophrenia: No - Patient Surgical History Past Surgical History: Yes Hx Neurologic Surgery: No Hx Cataract Extraction: No Hx Cardiac Surgery: No Hx Lung Surgery: No Hx Breast Surgery: No Hx Breast Biopsy: No Hx Abdominal Surgery: No Hx Appendectomy: No Hx Cholecystectomy: No Hx Genitourinary Surgery: No Hx Section: No Hx Orthopedic Surgery: Yes (knees replacement 2015 ) Hx Hysterectomy: Yes (2003) Other Surgical History: 2016 Anesthesia Reaction: No - PPD History Previous Implant?: Yes Documented Results: Negative w/proof Date: 12/06/16 PPD to be Administered?: Yes - Reproductive History Patient is a Female of Child Bearing Age (11 -55 yrs old): No (male) Last Menstrual Period: 08/15/07 Patient : No - Smoking Cessation Smoking history: Current every day smoker Have you smoked in the past 12 months: Yes Aproximately how many cigarettes per day: 15 Cigars Per Day: 0 Hx Chewing Tobacco Use: No Initiated information on smoking cessation: Yes 'Breaking Loose' booklet given: 01/24/18 - Substance & Tx. History Hx Alcohol Use: Yes Hx Substance Use: Yes Substance Use Type: Cocaine, Marijuana Hx Substance Use Treatment: Yes ([facility]) - Substances Abused Alcohol Route: Oral Frequency: Daily Amount used: 1 PINT Age of first use: 55 Date of Last Use: 01/24/18 Marijuana/Hashish Route: Smoking Frequency: Daily Amount used: 1 joint Age of first use: 15 Date of Last Use: 01/23/18 Cocaine Route: Smoking Frequency: Daily Amount used: 3 bags Age of first use: 15 Date of Last Use: 01/23/18 Family Disease History - Family Disease History Family Disease History: Diabetes: Sister, Heart Disease: Mother, Sister, Daughter, Other: Father (no contact) Admission Physical Exam BHS - Vital Signs Vital Signs: Vital Signs - 24 hr 01/24/18 19:28 Temperature 97 F L Pulse Rate 77 Respiratory 18 Rate Blood Pressure 117/64 - Physical General Appearance: Yes: Moderate Distress, Irritable, Sweating, Anxious HEENTM: Yes: EOMI, Normal ENT Inspection, Normocephalic, Normal Voice, FRANK Respiratory: Yes: Lungs Clear, Normal Breath Sounds, No Respiratory Distress Neck: Yes: Supple Breast: Yes: Breast Exam Deferred Cardiology: Yes: Regular Rhythm, Regular Rate, S1, S2 Abdominal: Yes: Normal Bowel Sounds, Soft Genitourinary: Yes: Within Normal Limits Back: Yes: Normal Inspection Musculoskeletal: Yes: Back pain, Muscle Pain, Muscle weakness Extremities: Yes: Tremors 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: Yes: Alert, Normal Mood/Affect Integumentary: Yes: Dry Lymphatic: Yes: Within Normal Limits - Diagnostic (1) Depression Current Visit: Yes Status: Chronic Qualifiers: Major depression recurrence: unspecified whether recurrent (2) Anxiety Current Visit: Yes Status: Chronic (3) Alcohol dependence with uncomplicated withdrawal Current Visit: Yes Status: Chronic (4) Bronchial asthma Current Visit: Yes Status: Chronic Qualifiers: Asthma severity: mild intermittent Asthma complication type: with acute exacerbation Qualified Code(s): J45.21 - Mild intermittent asthma with (acute ) exacerbation Comment: treated with antibiotic and prednison last dose "few weeks ago" (5) Nicotine dependence Current Visit: Yes Status: Chronic Qualifiers: Nicotine product type: cigarettes Substance use status: uncomplicated Qualified Code(s): F17.210 - Nicotine dependence, cigarettes, uncomplicated S Breath Alcohol Content Breath Alcohol Content: 0 Urine Pregancy Test - Result Urine Test Results: Negative- NO Line Present Urine Drug Screen - Results Drug Screen Negative: No Urine Drug Screen Results: THC-Marijuana, RADHA-Cocaine
[2018-01-24] MEDS ORDERED: LOPERAMIDE HCL 2 MG CAPSULE PO PRN (21:35)
[2018-01-24] MEDS ORDERED: MAGNESIUM CITRATE 300 ML BOTTLE PO PRN (21:35)
[2018-01-24] MEDS ORDERED: chlordiazePOXIDE HCL 25 MG CAPSULE PO PRN (21:35)
[2018-01-24] MEDS ORDERED: P-EPHED 60MG/TRIPROLIDI 2.5MG TABLET PO PRN (21:35)
[2018-01-24] MEDS ORDERED: MAG HYDROX/AL HYDROX/SIMETH 30 ML UNIT-DOSE CUP PO PRN (21:35)
[2018-01-24] MEDS ORDERED: MENTHOL/PHENOL 1 EACH UD MM PRN (21:35)
[2018-01-24] MEDS ORDERED: NICOTINE POLACRILEX 2 MG GUM BC PRN (21:35)
[2018-01-24] MEDS ORDERED: guaiFENesin/D-METHORPHAN HB 10 ML UNIT-DOSE CUPS PO PRN (21:35)
[2018-01-24] MEDS ORDERED: MAGNESIUM HYDROX 2400MG/30ML ORAL SUSPENSION 30 ML CUP PO PRN (21:35)
[2018-01-24] MEDS ORDERED: ACETAMINOPHEN 325 MG TABLET (FP) PO PRN (21:35)
[2018-01-24] MEDS ORDERED: MELATONIN 5 MG TABLETS PO PRN (22:00)
[2018-01-24] MEDS: MONTELUKAST NA 10 MG TABLET PO SCH (23:57)
[2018-01-24] MEDS: THIAMINE HCL 100 MG TABLET (FP) PO SCH (23:57)
[2018-01-24] MEDS: PANTOPRAZOLE 40 MG TABLET (FP) PO SCH (23:57)
[2018-01-24] MEDS: chlordiazePOXIDE HCL 25 MG CAPSULE PO SCH (23:57)
[2018-01-25] MEDS: BUDESONIDE/FORMETEROL FUMARATE 160/4.5 mcg INHALER IH SCH ×3 (00:07→23:42)
[2018-01-25] MEDS: PREGABALIN 100 MG CAPSULE PO SCH ×4 (01:00→23:39)
[2018-01-25] MEDS: IBUPROFEN 400 MG TABLET (FP) PO PRN (01:01)
[2018-01-25 02:26] LABS: URINE APPEARANCE CLOUDY; URINE BILIRUBIN NEGATIVE (<2.0 mg/dL); URINE BLOOD NEGATIVE (NEGATIVE); URINE COLOR DKYELLOW; URINE GLUCOSE (UA) NEGATIVE (NEGATIVE); URINE KETONE NEGATIVE (NEGATIVE); URINE LEUK ESTERASE TRACE (NEGATIVE); URINE NITRITE NEGATIVE (NEGATIVE); URINE PROTEIN NEGATIVE (NEGATIVE); URINE UROBILINOGEN NEGATIVE mg/dL (0.2-1.0)
[2018-01-25 02:54] LABS: CALCIUM OXALATE CRYSTALS FEW /hpf (NONE SEEN); EPI CELLS MODERATE /HPF (FEW); URINE BACTERIA RARE /hpf (NONE SEEN); URINE HYALINE CAST 3 /lpf; URINE MUCUS FEW
[2018-01-25] MEDS: chlordiazePOXIDE HCL 25 MG CAPSULE PO SCH ×4 (06:08→23:41)
--- NOTE | 2018-01-25 09:44 | PN ---
BHS CIWA - CIWA Score Nausea/Vomitin-Mild Nausea/No Vomiting Muscle Tremors: 4-Moderate,w/Arms Extend Anxiety: 3 Agitation: 3 Paroxysmal Sweats: 1-Minimal Palms Moist Orientation: 0-Oriented Tacttile Disturbances: 1-Very Mild Itch/Numbness Auditory Disturbances: 0-None Visual Disturbances: 0-None Headache: 0-None Present CIWA-Ar Total Score: 13 BHS Progress Note (SOAP) Subjective: gi distress sweat tremor restlessness low energy irritable Objective: 01/25/18 09:42 Vital Signs Temperature 98.5 F 01/25/18 09:25 Pulse Rate 59 L 01/25/18 09:25 Respiratory Rate 18 01/25/18 09:25 Blood Pressure 103/63 01/25/18 09:25 O2 Sat by Pulse Oximetry (%) Laboratory Last Values Urine Color Dkyellow 01/24/18 Unknown Urine Appearance Cloudy 01/24/18 Unknown Urine pH 5.0 (5.0-8.0) 01/24/18 Unknown Ur Specific [place] 1.024 (1.001-1.035) 01/24/18 Unknown Urine Protein Negative (NEGATIVE) 01/24/18 Unknown Urine Glucose (UA) Negative (NEGATIVE) 01/24/18 Unknown Urine Ketones Negative (NEGATIVE) 01/24/18 Unknown Urine Blood Negative (NEGATIVE) 01/24/18 Unknown Urine Nitrite Negative (NEGATIVE) 01/24/18 Unknown Urine Bilirubin Negative (<2.0 mg/dL) 01/24/18 Unknown Urine Urobilinogen Negative mg/dL (0.2-1.0) 01/24/18 Unknown Ur Leukocyte Esterase Trace (NEGATIVE) 01/24/18 Unknown Urine WBC (Auto) None /hpf (3-5) 01/24/18 Unknown Urine RBC (Auto) 1 /hpf (0-3) 01/24/18 Unknown Ur Epithelial Cells Moderate /HPF (FEW) 01/24/18 Unknown Calcium Oxalate Crystal Few /hpf (NONE SEEN) 01/24/18 Unknown Urine Bacteria Rare /hpf (NONE SEEN) 01/24/18 Unknown Hyaline Casts 3 /lpf 01/24/18 Unknown Urine Mucus Few 01/24/18 Unknown lab noted oxalate urination Assessment: 01/25/18 09:43 alcohol withdrawal sx increase oral fluid Plan: continue detox oxalate urination
--- NOTE | 2018-01-25 09:57 | CONSULT ---
[facility] Psychiatric Consult - Data Date of interview: 01/25/18 Admission source: [facility] Identifying data: Patient is a 57 year old female, mother of five, domiciled, unemployed and receiving SSD. This is patient's first admission to detox. Pt. admitted to for alcohol, cannabis, and cocaine dependence. Substance Abuse History: Smoking Cessation. Smoking history: Current every day smoker. Have you smoked in the past 12 months: Yes. Aproximately how many cigarettes per day: 15. Cigars Per Day: 0. Hx Chewing Tobacco Use: No. Initiated information on smoking cessation: Yes. 'Breaking Loose' booklet given : 01/24/18. - Substance & Tx. History. Hx Alcohol Use: Yes. Hx Substance Use : Yes. Substance Use Type: Cocaine, Marijuana. Hx Substance Use Treatment: Yes ([facility]). - Substances Abused. Alcohol. Route: Oral. Frequency: Daily. Amount used: 1 PINT. Age of first use: 55. Date of Last Use: 01/24/18. Marijuana/Hashish. Route: Smoking. Frequency: Daily. Amount used: 1 joint. Age of first use: 15. Date of Last Use: 01/23/18. Cocaine. Route: Smoking. Frequency: Daily. Amount used: 3 bags. Age of first use: 15. Date of Last Use: 01/23/18 Medical History: Asthma, GERD, Knee replacement 2016 + Hysterectomy 2004 Psychiatric History: Patient denies h/o psychiatric hospitalizations, outpatient care, and suicide attempt. Pt is unreliable. As per Dr. Hernandez entry on 12/07/16, patient has a diagnosis of Biplar disorder, Panic disorder and PTSD. As per pharmacy claims patient is prescribed celexa 20mg + Ambien 10mg + abilify 10mg. Physical/Sexual Abuse/Trauma History: Denies. Mental Status Exam - Mental Status Exam Alert and Oriented to: Time, Place, Person Cognitive Function: Good Patient Appearance: Unkempt Mood: Withdrawn, Euthymic Affect: Mood Congruent Patient Behavior: Fatigued, Asleep (Patient able to be awaken to complete interview. ) Speech Pattern: Delayed Voice Loudness: Moderately Soft/Quiet Thought Process: Goal Oriented Thought Disorder: Not Present Hallucinations: Denies Suicidal Ideation: Denies Homicidal Ideation: Denies Insight/Judgement: Poor Sleep: Fair Appetite: Fair Muscle strength/Tone: Normal Gait/Station: Other (Did not observe patient's gait.) Psychiatric Findings - Problem List ([place] 1, 2,3) (1) Alcohol dependence with uncomplicated withdrawal Current Visit: Yes Status: Acute (2) Cannabis dependence Current Visit: Yes Status: Acute (3) Cocaine dependence Current Visit: Yes Status: Acute (4) Bipolar disorder Current Visit: No Status: Chronic Qualifiers: Current episode severity: unspecified (5) Post traumatic stress disorder (PTSD) Current Visit: No Status: Chronic Comment: According to her psychiatrist,Dr Romina Tejeda. - Initial Treatment Plan Initial Treatment Plan: Psychoeducation provided. Detoxification in progress.Observation. Pt. denies h/o accepting medications.
[2018-01-25 10:23] LABS: HEMATOCRIT 38.9 % (32.4-45.2); HEMOGLOBIN 12.4 GM/dL (10.7-15.3); MCH 27.1 pg (25.7-33.7); MEAN CELL VOLUME 84.7 fl (80-96); MEAN PLT VOLUME 9.5 fl (7.5-11.1); PLATELET COUNT 221 K/MM3 (134-434); RBC 4.59 M/mm3 (3.60-5.2); WHITE BLOOD COUNT 5.2 K/mm3 (4.0-10.0)
[2018-01-25] MEDS: PRENATAL VITAMINS W/ FOLIC ACID TABLET (FP) PO SCH (11:25)
[2018-01-25] MEDS: PANTOPRAZOLE 40 MG TABLET (FP) PO SCH ×2 (11:25→23:43)
[2018-01-25] MEDS: NICOTINE 14 MG/24 HOURS TOPICAL PATCH TD SCH (11:26)
[2018-01-25 11:54] LABS: CHLORIDE 110 mmol/L (98-107); POTASSIUM 4.7 mmol/L (3.5-5.1); SODIUM 146 mmol/L (136-145)
[2018-01-25 12:22] LABS: ALK PHOS 83 U/L (45-117); ANION GAP 10 (8-16); BILIRUBIN,TOTAL 0.1 mg/dL (0.2-1.0); BLOOD UREA NITROGEN 30 mg/dL (7-18); CALCIUM 8.8 mg/dL (8.5-10.1); CO2 26 mmol/L (21-32); GLUCOSE,RANDOM 92 mg/dL (74-106); SGOT/AST 11 U/L (15-37); SGPT/ALT 15 U/L (12-78); TOT PROT 5.8 g/dl (6.4-8.2)
--- NOTE | 2018-01-25 13:29 | EKG ---
Test Reason : Blood Pressure : / mmHG Vent. Rate : 064 BPM Atrial Rate : 064 BPM P-R Int : 130 ms QRS Dur : 080 ms QT Int : 436 ms P-R-T Axes : 066 038 047 degrees QTc Int : 449 ms NORMAL SINUS RHYTHM POSSIBLE LEFT ATRIAL ENLARGEMENT BORDERLINE ECG WHEN COMPARED WITH ECG OF 05-DEC-2016 01:03, NO SIGNIFICANT CHANGE WAS FOUND Confirmed by MD MICKY, CLARENCE ([id number]) on 01/25/2018 1:29:37 PM Referred By: Confirmed By:CLAERNCE WEEKS MD
[2018-01-25] MEDS: THIAMINE HCL 100 MG TABLET (FP) PO SCH (23:40)
[2018-01-25] MEDS: MONTELUKAST NA 10 MG TABLET PO SCH (23:41)
[2018-01-26] MEDS: PREGABALIN 100 MG CAPSULE PO SCH ×3 (06:16→22:01)
[2018-01-26] MEDS: chlordiazePOXIDE HCL 25 MG CAPSULE PO SCH ×3 (06:16→18:56)
[2018-01-26] MEDS: PANTOPRAZOLE 40 MG TABLET (FP) PO SCH ×2 (10:38→22:01)
[2018-01-26] MEDS: PRENATAL VITAMINS W/ FOLIC ACID TABLET (FP) PO SCH (10:38)
[2018-01-26] MEDS: BUDESONIDE/FORMETEROL FUMARATE 160/4.5 mcg INHALER IH SCH ×2 (10:38→22:04)
[2018-01-26] MEDS: NICOTINE 14 MG/24 HOURS TOPICAL PATCH TD SCH (10:39)
--- NOTE | 2018-01-26 12:12 | PN ---
[facility] CIWA - CIWA Score Nausea/Vomitin-Mild Nausea/No Vomiting Muscle Tremors: 3 Anxiety: 2 Agitation: 2 Paroxysmal Sweats: 1-Minimal Palms Moist Orientation: 0-Oriented Tacttile Disturbances: 1-Very Mild Itch/Numbness Auditory Disturbances: 0-None Visual Disturbances: 0-None Headache: 1-Very Mild CIWA-Ar Total Score: 11 S Progress Note (SOAP) Subjective: tremor sweat low energy fatigue Objective: 01/26/18 12:08 Vital Signs Temperature 97.9 F 01/26/18 11:05 Pulse Rate 63 01/26/18 11:05 Respiratory Rate 16 01/26/18 11:05 Blood Pressure 96/64 01/26/18 11:05 O2 Sat by Pulse Oximetry (%) Laboratory Last Values WBC 5.2 K/mm3 (4.0-10.0) 01/25/18 07:30 RBC 4.59 M/mm3 (3.60-5.2) 01/25/18 07:30 Hgb 12.4 GM/dL (10.7-15.3) 01/25/18 07:30 Hct 38.9 % (32.4-45.2) 01/25/18 07:30 MCV 84.7 fl (80-96) 01/25/18 07:30 MCH 27.1 pg (25.7-33.7) D 01/25/18 07:30 MCHC 32.0 g/dl (32.0-36.0) 01/25/18 07:30 RDW 18.0 % (11.6-15.6) H 01/25/18 07:30 Plt Count 221 K/MM3 (134-434) D 01/25/18 07:30 MPV 9.5 fl (7.5-11.1) 01/25/18 07:30 Sodium 146 mmol/L (136-145) H 01/25/18 07:30 Potassium 4.7 mmol/L (3.5-5.1) 01/25/18 07:30 Chloride 110 mmol/L (98-107) H 01/25/18 07:30 Carbon Dioxide 26 mmol/L (21-32) 01/25/18 07:30 Anion Gap 10 (8-16) 01/25/18 07:30 BUN 30 mg/dL (7-18) H 01/25/18 07:30 Creatinine 1.0 mg/dL (0.55-1.02) 01/25/18 07:30 Creat Clearance w eGFR 56.95 (>60) 01/25/18 07:30 Random Glucose 92 mg/dL (74-106) 01/25/18 07:30 Calcium 8.8 mg/dL (8.5-10.1) 01/25/18 07:30 Total Bilirubin 0.1 mg/dL (0.2-1.0) L D 01/25/18 07:30 AST 11 U/L (15-37) L 01/25/18 07:30 ALT 15 U/L (12-78) 01/25/18 07:30 Alkaline Phosphatase 83 U/L (45-117) 01/25/18 07:30 Total Protein 5.8 g/dl (6.4-8.2) L 01/25/18 07:30 Albumin 3.0 g/dl (3.4-5.0) L 01/25/18 07:30 Urine Color Dkyellow 01/24/18 Unknown Urine Appearance Cloudy 01/24/18 Unknown Urine pH 5.0 (5.0-8.0) 01/24/18 Unknown Ur Specific [place] 1.024 (1.001-1.035) 01/24/18 Unknown Urine Protein Negative (NEGATIVE) 01/24/18 Unknown Urine Glucose (UA) Negative (NEGATIVE) 01/24/18 Unknown Urine Ketones Negative (NEGATIVE) 01/24/18 Unknown Urine Blood Negative (NEGATIVE) 01/24/18 Unknown Urine Nitrite Negative (NEGATIVE) 01/24/18 Unknown Urine Bilirubin Negative (<2.0 mg/dL) 01/24/18 Unknown Urine Urobilinogen Negative mg/dL (0.2-1.0) 01/24/18 Unknown Ur Leukocyte Esterase Trace (NEGATIVE) 01/24/18 Unknown Urine WBC (Auto) None /hpf (3-5) 01/24/18 Unknown Urine RBC (Auto) 1 /hpf (0-3) 01/24/18 Unknown Ur Epithelial Cells Moderate /HPF (FEW) 01/24/18 Unknown Calcium Oxalate Crystal Few /hpf (NONE SEEN) 01/24/18 Unknown Urine Bacteria Rare /hpf (NONE SEEN) 01/24/18 Unknown Hyaline Casts 3 /lpf 01/24/18 Unknown Urine Mucus Few 01/24/18 Unknown RPR Titer Nonreactive (NONREACTIVE) 01/25/18 07:30 lab noted increase oral flud repeat chemistry 01/27/18 ammonia serum level today 01/26/18 12:10 Assessment: 01/26/18 12:11 withdrawal sx low energy Plan: continue detox repeat chemistry increase oral fluid ammonia serum level today
[2018-01-26] MEDS: LACTULOSE 20 GM/30 ML UDC (FOR ORAL USE ONLY) PO SCH ×2 (18:56→22:01)
[2018-01-26] MEDS: chlordiazePOXIDE 5 MG CAPSULE PO SCH (22:04)
[2018-01-26] MEDS: THIAMINE HCL 100 MG TABLET (FP) PO SCH (22:04)
[2018-01-26] MEDS: MONTELUKAST NA 10 MG TABLET PO SCH (22:04)
[2018-01-27] MEDS: chlordiazePOXIDE 5 MG CAPSULE PO SCH ×3 (05:54→17:27)
[2018-01-27] MEDS: PREGABALIN 100 MG CAPSULE PO SCH ×3 (05:55→22:28)
[2018-01-27] MEDS: ALBUTEROL SO4 18 GM HFA INHALER IH PRN (06:42)
--- NOTE | 2018-01-27 10:18 | PN ---
BHS Progress Note (SOAP) Subjective: feeling better no tremor less sweat slept better at night social with peers in day room Objective: 01/27/18 10:18 Vital Signs Temperature 99 F 01/27/18 09:21 Pulse Rate 71 01/27/18 09:21 Respiratory Rate 18 18 09:21 Blood Pressure 117/71 01/27/18 09:21 O2 Sat by Pulse Oximetry (%) Laboratory Last Values WBC 5.2 K/mm3 (4.0-10.0) 01/25/18 07:30 RBC 4.59 M/mm3 (3.60-5.2) 01/25/18 07:30 Hgb 12.4 GM/dL (10.7-15.3) 01/25/18 07:30 Hct 38.9 % (32.4-45.2) 01/25/18 07:30 MCV 84.7 fl (80-96) 01/25/18 07:30 MCH 27.1 pg (25.7-33.7) D 01/25/18 07:30 MCHC 32.0 g/dl (32.0-36.0) 01/25/18 07:30 RDW 18.0 % (11.6-15.6) H 01/25/18 07:30 Plt Count 221 K/MM3 (134-434) D 01/25/18 07:30 MPV 9.5 fl (7.5-11.1) 01/25/18 07:30 Sodium 146 mmol/L (136-145) H 01/25/18 07:30 Potassium 4.7 mmol/L (3.5-5.1) 01/25/18 07:30 Chloride 110 mmol/L (98-107) H 01/25/18 07:30 Carbon Dioxide 26 mmol/L (21-32) 01/25/18 07:30 Anion Gap 10 (8-16) 01/25/18 07:30 BUN 30 mg/dL (7-18) H 01/25/18 07:30 Creatinine 1.0 mg/dL (0.55-1.02) 01/25/18 07:30 Creat Clearance w eGFR 56.95 (>60) 01/25/18 07:30 Random Glucose 92 mg/dL (74-106) 06/05/18 07:30 Calcium 8.8 mg/dL (8.5-10.1) 01/25/18 07:30 Total Bilirubin 0.1 mg/dL (0.2-1.0) L D 01/25/18 07:30 AST 11 U/L (15-37) L 01/25/18 07:30 ALT 15 U/L (12-78) 01/25/18 07:30 Alkaline Phosphatase 83 U/L (45-117) 01/25/18 07:30 Ammonia 49.2 umol/L (11-32) H 01/26/18 12:00 Total Protein 5.8 g/dl (6.4-8.2) L 01/25/18 07:30 Albumin 3.0 g/dl (3.4-5.0) L 01/25/18 07:30 Urine Color Dkyellow 01/24/18 Unknown Urine Appearance Cloudy 01/24/18 Unknown Urine pH 5.0 (5.0-8.0) 01/24/18 Unknown Ur Specific [place] 1.024 (1.001-1.035) 01/24/18 Unknown Urine Protein Negative (NEGATIVE) 01/24/18 Unknown Urine Glucose (UA) Negative (NEGATIVE) 01/24/18 Unknown Urine Ketones Negative (NEGATIVE) 01/24/18 Unknown Urine Blood Negative (NEGATIVE) 01/24/18 Unknown Urine Nitrite Negative (NEGATIVE) 01/24/18 Unknown Urine Bilirubin Negative (<2.0 mg/dL) 01/24/18 Unknown Urine Urobilinogen Negative mg/dL (0.2-1.0) 01/24/18 Unknown Ur Leukocyte Esterase Trace (NEGATIVE) 01/24/18 Unknown Urine WBC (Auto) None /hpf (3-5) 01/24/18 Unknown Urine RBC (Auto) 1 /hpf (0-3) 01/24/18 Unknown Ur Epithelial Cells Moderate /HPF (FEW) 01/24/18 Unknown Calcium Oxalate Crystal Few /hpf (NONE SEEN) 01/24/18 Unknown Urine Bacteria Rare /hpf (NONE SEEN) 01/24/18 Unknown Hyaline Casts 3 /lpf 01/24/18 Unknown Urine Mucus Few 01/24/18 Unknown RPR Titer Nonreactive (NONREACTIVE) 01/25/18 07:30 HIV 1&2 Antibody Screen Negative 01/25/18 07:30 HIV P24 Antigen Negative 01/25/18 07:30 lab noted repeat chemistry pending 01/27/18 10:19 Assessment: 01/27/18 10:19 mild withdrawal sx Plan: medically supervised detox
[2018-01-27 10:42] LABS: CHLORIDE 109 mmol/L (98-107); POTASSIUM 4.3 mmol/L (3.5-5.1); SODIUM 143 mmol/L (136-145)
[2018-01-27] MEDS: BUDESONIDE/FORMETEROL FUMARATE 160/4.5 mcg INHALER IH SCH ×2 (11:13→22:28)
[2018-01-27] MEDS: PANTOPRAZOLE 40 MG TABLET (FP) PO SCH ×2 (11:14→22:28)
[2018-01-27] MEDS: LACTULOSE 20 GM/30 ML UDC (FOR ORAL USE ONLY) PO SCH ×4 (11:14→22:29)
[2018-01-27] MEDS: NICOTINE 14 MG/24 HOURS TOPICAL PATCH TD SCH (11:14)
[2018-01-27] MEDS: PRENATAL VITAMINS W/ FOLIC ACID TABLET (FP) PO SCH (11:14)
[2018-01-27 11:54] LABS: ALBUMIN 2.9 g/dl (3.4-5.0); ALK PHOS 81 U/L (45-117); ANION GAP 10 (8-16); BLOOD UREA NITROGEN 21 mg/dL (7-18); CO2 24 mmol/L (21-32); CREATININE 0.7 mg/dL (0.55-1.02); GLUCOSE,RANDOM 90 mg/dL (74-106); SGOT/AST 14 U/L (15-37); SGPT/ALT 15 U/L (12-78); TOT PROT 5.7 g/dl (6.4-8.2)
[2018-01-27 11:56] LABS: BILIRUBIN,TOTAL < 0.1 mg/dL (0.2-1.0)
[2018-01-27] MEDS: THIAMINE HCL 100 MG TABLET (FP) PO SCH (22:28)
[2018-01-27] MEDS: MONTELUKAST NA 10 MG TABLET PO SCH (22:28)
[2018-01-27] MEDS: chlordiazePOXIDE HCL 10 MG CAPSULE PO SCH (22:28)
[2018-01-28] MEDS: PREGABALIN 100 MG CAPSULE PO SCH (06:04)
[2018-01-28] MEDS: chlordiazePOXIDE HCL 10 MG CAPSULE PO SCH ×2 (06:04→10:46)
[2018-01-28 07:07] VITALS: BP 113/64; PULSE 75; TEMP 97.6
--- NOTE | 2018-01-28 10:33 | PN ---
S Progress Note (SOAP) Subjective: alert,no complaint Objective: 01/28/18 10:31 Vital Signs Temperature 97.6 F 01/28/18 06:00 Pulse Rate 75 01/28/18 06:00 Respiratory Rate 18 01/28/18 06:00 Blood Pressure 113/64 01/28/18 06:00 O2 Sat by Pulse Oximetry (%) Assessment: 01/28/18 10:32 detox completed,no withdrawal symptom Plan: discharge today,follow up with after care program as arrangement
--- NOTE | 2018-01-28 10:39 | DS ---
[facility] Detox Discharge Summary Admission Date: 01/24/18 Discharge Date: 01/28/18 - History Present History: Alcohol Dependence Additional Comments: follow up with after care program as arrangement Pertinent Past History: nicotine dependence asthma anxiety depression - Physical Exam Results Vital Signs: Vital Signs Temperature 97.6 F 01/28/18 06:00 Pulse Rate 75 01/28/18 06:00 Respiratory Rate 18 01/28/18 06:00 Blood Pressure 113/64 01/28/18 06:00 O2 Sat by Pulse Oximetry (%) Pertinent Admission Physical Exam Findings: withdrawal signs and symptom Vital Signs Temperature 97.6 F 01/28/18 06:00 Pulse Rate 75 01/28/18 06:00 Respiratory Rate 18 01/28/18 06:00 Blood Pressure 113/64 01/28/18 06:00 O2 Sat by Pulse Oximetry (%) Laboratory Last Values WBC 5.2 K/mm3 (4.0-10.0) 01/25/18 07:30 RBC 4.59 M/mm3 (3.60-5.2) 01/25/18 07:30 Hgb 12.4 GM/dL (10.7-15.3) 01/25/18 07:30 Hct 38.9 % (32.4-45.2) 01/25/18 07:30 MCV 84.7 fl (80-96) 01/25/18 07:30 MCH 27.1 pg (25.7-33.7) D 01/25/18 07:30 MCHC 32.0 g/dl (32.0-36.0) 01/25/18 07:30 RDW 18.0 % (11.6-15.6) H 01/25/18 07:30 Plt Count 221 K/MM3 (134-434) D 01/25/18 07:30 MPV 9.5 fl (7.5-11.1) 01/25/18 07:30 Sodium 143 mmol/L (136-145) 01/27/18 08:00 Potassium 4.3 mmol/L (3.5-5.1) 01/27/18 08:00 Chloride 109 mmol/L (98-107) H 01/27/18 08:00 Carbon Dioxide 24 mmol/L (21-32) 01/27/18 08:00 Anion Gap 10 (8-16) 01/27/18 08:00 BUN 21 mg/dL (7-18) H 01/27/18 08:00 Creatinine 0.7 mg/dL (0.55-1.02) 01/27/18 08:00 Creat Clearance w eGFR > 60 (>60) 01/27/18 08:00 Random Glucose 90 mg/dL (74-106) 01/27/18 08:00 Calcium 9.0 mg/dL (8.5-10.1) 01/27/18 08:00 Total Bilirubin < 0.1 mg/dL (0.2-1.0) L 01/27/18 08:00 AST 14 U/L (15-37) L 01/27/18 08:00 ALT 15 U/L (12-78) 01/27/18 08:00 Alkaline Phosphatase 81 U/L (45-117) 01/27/18 08:00 Ammonia 49.2 umol/L (11-32) H 01/26/18 12:00 Total Protein 5.7 g/dl (6.4-8.2) L 01/27/18 08:00 Albumin 2.9 g/dl (3.4-5.0) L 01/27/18 08:00 Urine Color Dkyellow 01/24/18 Unknown Urine Appearance Cloudy 01/24/18 Unknown Urine pH 5.0 (5.0-8.0) 01/24/18 Unknown Ur Specific [place] 1.024 (1.001-1.035) 01/24/18 Unknown Urine Protein Negative (NEGATIVE) 01/24/18 Unknown Urine Glucose (UA) Negative (NEGATIVE) 01/24/18 Unknown Urine Ketones Negative (NEGATIVE) 01/24/18 Unknown Urine Blood Negative (NEGATIVE) 01/24/18 Unknown Urine Nitrite Negative (NEGATIVE) 01/24/18 Unknown Urine Bilirubin Negative (<2.0 mg/dL) 01/24/18 Unknown Urine Urobilinogen Negative mg/dL (0.2-1.0) 01/24/18 Unknown Ur Leukocyte Esterase Trace (NEGATIVE) 01/24/18 Unknown Urine WBC (Auto) None /hpf (3-5) 01/24/18 Unknown Urine RBC (Auto) 1 /hpf (0-3) 01/24/18 Unknown Ur Epithelial Cells Moderate /HPF (FEW) 01/24/18 Unknown Calcium Oxalate Crystal Few /hpf (NONE SEEN) 01/24/18 Unknown Urine Bacteria Rare /hpf (NONE SEEN) 01/24/18 Unknown Hyaline Casts 3 /lpf 01/24/18 Unknown Urine Mucus Few 01/24/18 Unknown RPR Titer Nonreactive (NONREACTIVE) 01/25/18 07:30 HIV 1&2 Antibody Screen Negative 01/25/18 07:30 HIV P24 Antigen Negative 01/25/18 07:30 - Treatment Hospital Course: Detox Protocol Followed, Detoxed Safely, Responded well, Discharged Condition Good Patient has Accepted a Rehab Referral [facility]: [facility] - Medication Discharge Medications: Ambulatory Orders Pantoprazole Sodium [Protonix -] 40 mg PO BID #30 tablet.ec 08/07/15 Citalopram Hydrobromide [Celexa -] 40 mg PO DAILY 08/30/15 Nicotine [Nicotine Patch 14mg/24 hr] 1 each TD DAILY 12/04/16 Pregabalin [Lyrica -] 300 mg PO TID 12/04/16 Zolpidem Tartrate [Ambien] 10 mg PO HS PRN #14 tablet MDD 10 12/07/16 Albuterol Sulfate Inhaler - [Ventolin HFA Inhaler -] 2 puff IH Q4H PRN #1 inhaler 01/27/18 Budesonide/Formeterol Fumarate [SYMBICORT 160/4.5mcg -] 1 inh PO BID #1 inhaler 01/27/18 Montelukast Na [Singulair -] 10 mg PO HS #30 tablet 01/27/18 - Diagnosis (1) Alcohol dependence with uncomplicated withdrawal Current Visit: Yes Status: Acute (2) Bronchial asthma Current Visit: Yes Status: Chronic Qualifiers: Asthma severity: mild intermittent Asthma complication type: with acute exacerbation Qualified Code(s): J45.21 - Mild intermittent asthma with (acute ) exacerbation (3) Nicotine dependence Current Visit: Yes Status: Chronic Qualifiers: Nicotine product type: cigarettes Substance use status: uncomplicated Qualified Code(s): F17.210 - Nicotine dependence, cigarettes, uncomplicated - AMA Did Patient Leave Against Medical Advice: No
[2018-01-28] MEDS: PRENATAL VITAMINS W/ FOLIC ACID TABLET (FP) PO SCH (10:45)
[2018-01-28] MEDS: PANTOPRAZOLE 40 MG TABLET (FP) PO SCH (10:45)
[2018-01-28] MEDS: BUDESONIDE/FORMETEROL FUMARATE 160/4.5 mcg INHALER IH SCH (10:45)
[2018-01-28] MEDS: NICOTINE 14 MG/24 HOURS TOPICAL PATCH TD SCH (10:46)
[2018-01-28] MEDS: LACTULOSE 20 GM/30 ML UDC (FOR ORAL USE ONLY) PO SCH (10:46)
[2018-01-28] MEDS: ALBUTEROL SO4 18 GM HFA INHALER IH PRN (10:47)
[2018-01-28] MEDS: IBUPROFEN 400 MG TABLET (FP) PO PRN (10:48)
== END 2018-01-28 11:13 | disposition other institution (70) | DRG 897 ==
LOC: YASAS 17:33 → Y6N 21:30
PROVIDERS: ADMIT Surgery; ATTEND Surgery
PROC: HZ2ZZZZ Detoxification Services for Substance Abuse Treatment (ICD-10-PCS; principal; 2018-01-24)
DX: F10.230 Alcohol dependence with withdrawal, uncomplicated (principal); F14.20 Cocaine dependence, uncomplicated; J45.21 Mild intermittent asthma with (acute) exacerbation; E72.20 Disorder of urea cycle metabolism, unspecified; F12.20 Cannabis dependence, uncomplicated; F17.210 Nicotine dependence, cigarettes, uncomplicated; F43.10 Post-traumatic stress disorder, unspecified; F32.9 Major depressive disorder, single episode, unspecified; F41.9 Anxiety disorder, unspecified; K21.9 Gastro-esophageal reflux disease without esophagitis; Z88.0 Allergy status to penicillin; Z88.1 Allergy status to other antibiotic agents; Z91.5 Personal history of self-harm
CPT/HCPCS: 36415; 80053; 81003; 81015; 82140; 85027; 86593; 87389; 93005; 93010

== ENCOUNTER 2018-01-28 11:24 | Inpatient (IN) | payer OTHER ==
[~2018-01-28 11:24] MED LIST: CITALOPRAM HYDROBROMIDE 40 MG TABLET PO SCH
[2018-01-28] MEDS ORDERED: ACETAMINOPHEN 325 MG TABLET (FP) PO PRN (14:41)
[2018-01-28] MEDS ORDERED: NICOTINE POLACRILEX 2 MG GUM BUC PRN (14:41)
[2018-01-28] MEDS ORDERED: MAG HYDROX/AL HYDROX/SIMETH 30 ML UNIT-DOSE CUP PO PRN (14:41)
[2018-01-28] MEDS ORDERED: MENTHOL/PHENOL 1 EACH UD MM PRN (14:41)
[2018-01-28] MEDS ORDERED: P-EPHED 60MG/TRIPROLIDI 2.5MG TABLET PO PRN (14:41)
[2018-01-28] MEDS ORDERED: MAGNESIUM CITRATE 300 ML BOTTLE PO PRN (14:41)
[2018-01-28] MEDS ORDERED: LOPERAMIDE HCL 2 MG CAPSULE PO PRN (14:41)
[2018-01-28] MEDS ORDERED: guaiFENesin/D-METHORPHAN HB 10 ML UNIT-DOSE CUPS PO PRN (14:41)
[2018-01-28] MEDS ORDERED: IBUPROFEN 400 MG TABLET (FP) PO PRN (14:41)
[2018-01-28] MEDS ORDERED: MAGNESIUM HYDROX 2400MG/30ML ORAL SUSPENSION 30 ML CUP PO PRN (14:41)
[2018-01-28] MEDS ORDERED: hydrOXYzine PAMOATE 50 MG CAPSULE (FP) PO PRN (14:41)
--- NOTE | 2018-01-28 14:54 | HP ---
[facility] Rehab Assess/Revision - Admission History Admitted to Rehab from: [facility] Date of Admission to Rehab: 01/28/18 - Vital signs Vital Signs: Vital Signs Period Temp Pulse Resp BP Sys/[place] Pulse Ox Last 24 Hr 98.1 F 72 18 98/62 - Findings Detox History & Physical reviewed: Yes Concur with findings: Yes Comments/Additional Findings: for rehab as protocol Inpatient Rehab Admission - Initial Determination Are CD services needed?: Yes Free of communicable disease: Yes Not in need of hospitalization: Yes - Rehab Admission Criteria Previous failed treatment: Yes Poor recovery environment: Yes Comorbidities: Yes Lacks judgement: No Patient is meeting Inpatient Rehab admission criteria:: Yes
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
[2018-01-28] MEDS ORDERED: ARIPiprazole 5 MG TABLET (FP) ONE (16:51)
[2018-01-28] MEDS: LACTULOSE 20 GM/30 ML UDC (FOR ORAL USE ONLY) PO SCH ×2 (17:02→21:35)
[2018-01-28] MEDS: ARIPiprazole 10 MG TABLET PO SCH (17:03)
[2018-01-28] MEDS ORDERED: ONDANSETRON *ODT* 4 MG TABLET SL ONE (19:00)
[2018-01-28] MEDS ORDERED: ONDANSETRON 4 MG TABLET PO ONE (19:00)
[2018-01-28] MEDS: traZODone HCL 50 MG TABLET (FP) PO SCH (21:21)
[2018-01-28] MEDS: THIAMINE HCL 100 MG TABLET (FP) PO SCH (21:21)
[2018-01-28] MEDS: BUDESONIDE/FORMETEROL FUMARATE 160/4.5 mcg INHALER IH SCH (21:34)
[2018-01-28] MEDS: ALBUTEROL SO4 18 GM HFA INHALER IH PRN (21:36)
[2018-01-29] MEDS: LACTULOSE 20 GM/30 ML UDC (FOR ORAL USE ONLY) PO SCH ×4 (10:08→22:48)
[2018-01-29] MEDS: ARIPiprazole 10 MG TABLET PO SCH (10:09)
[2018-01-29] MEDS: PANTOPRAZOLE 40 MG TABLET (FP) PO SCH (10:09)
[2018-01-29] MEDS: PRENATAL VITAMINS W/ FOLIC ACID TABLET (FP) PO SCH (10:10)
[2018-01-29] MEDS: NICOTINE 21 MG/24 HOURS TOPICAL PATCH TD SCH (10:10)
[2018-01-29] MEDS: CITALOPRAM HYDROBROMIDE 20 MG TABLET (FP) PO SCH (10:10)
[2018-01-29] MEDS: BUDESONIDE/FORMETEROL FUMARATE 160/4.5 mcg INHALER IH SCH ×2 (10:11→23:50)
[2018-01-29] MEDS: ALBUTEROL SO4 18 GM HFA INHALER IH PRN (10:12)
[2018-01-29] MEDS: LIDOCAINE 5% TOPICAL PATCH TP SCH (11:39)
[2018-01-29] MEDS ORDERED: PT OWN MED DRAWER 7, Y5N ONE (15:37)
[2018-01-29] MEDS: LIDOCAINE PATCH REMOVAL MC SCH (22:49)
[2018-01-29] MEDS: traZODone HCL 50 MG TABLET (FP) PO SCH (22:49)
[2018-01-29] MEDS: THIAMINE HCL 100 MG TABLET (FP) PO SCH (22:51)
[2018-01-30] MEDS: LACTULOSE 20 GM/30 ML UDC (FOR ORAL USE ONLY) PO SCH ×4 (10:15→21:54)
[2018-01-30] MEDS: NICOTINE 21 MG/24 HOURS TOPICAL PATCH TD SCH (10:15)
[2018-01-30] MEDS: BUDESONIDE/FORMETEROL FUMARATE 160/4.5 mcg INHALER IH SCH ×2 (10:15→21:55)
[2018-01-30] MEDS: PRENATAL VITAMINS W/ FOLIC ACID TABLET (FP) PO SCH (10:15)
[2018-01-30] MEDS: CITALOPRAM HYDROBROMIDE 20 MG TABLET (FP) PO SCH (10:15)
[2018-01-30] MEDS: LIDOCAINE 5% TOPICAL PATCH TP SCH (10:15)
[2018-01-30] MEDS: ARIPiprazole 10 MG TABLET PO SCH (10:15)
[2018-01-30] MEDS: PANTOPRAZOLE 40 MG TABLET (FP) PO SCH (10:15)
[2018-01-30] MEDS: traZODone HCL 50 MG TABLET (FP) PO SCH (21:54)
[2018-01-30] MEDS: LIDOCAINE PATCH REMOVAL MC SCH (21:55)
[2018-01-30] MEDS: THIAMINE HCL 100 MG TABLET (FP) PO SCH (21:55)
[2018-01-31] MEDS ORDERED: ARIPiprazole 5 MG TABLET (FP) ONE (08:51)
[2018-01-31] MEDS ORDERED: PT OWN MED DRAWER 7, Y5N ONE (08:52)
[2018-01-31] MEDS: CITALOPRAM HYDROBROMIDE 20 MG TABLET (FP) PO SCH (12:00)
[2018-01-31] MEDS: ARIPiprazole 10 MG TABLET PO SCH (12:00)
[2018-01-31] MEDS: NICOTINE 21 MG/24 HOURS TOPICAL PATCH TD SCH (12:01)
[2018-01-31] MEDS: PANTOPRAZOLE 40 MG TABLET (FP) PO SCH (12:01)
[2018-01-31] MEDS: LACTULOSE 20 GM/30 ML UDC (FOR ORAL USE ONLY) PO SCH ×2 (12:01→21:48)
[2018-01-31] MEDS: LIDOCAINE 5% TOPICAL PATCH TP SCH (12:01)
[2018-01-31] MEDS: PRENATAL VITAMINS W/ FOLIC ACID TABLET (FP) PO SCH (12:01)
[2018-01-31] MEDS: BUDESONIDE/FORMETEROL FUMARATE 160/4.5 mcg INHALER IH SCH ×2 (12:01→21:48)
--- NOTE | 2018-01-31 12:37 | PN ---
[facility] Progress Note Note: PATIENT HAS AMMONIA LEVEL 38.24. IMPROVING. PATIENT REFUSED ALL MEDS THIS MORNING. PATIENT ADVISED/EDUCATED OF RISK FACTORS WITH MEDICATION REFUSAL. LACTULOSE DECREASED TO BID. WILL REPEAT NH4 LEVEL IN 48 HOURS. PATIENT VERBALIZED UNDERSTANDING OF ALL EDUCATION PROVIDED.
[2018-01-31] MEDS: traZODone HCL 50 MG TABLET (FP) PO SCH (21:48)
[2018-01-31] MEDS: LIDOCAINE PATCH REMOVAL MC SCH (21:48)
[2018-01-31] MEDS: THIAMINE HCL 100 MG TABLET (FP) PO SCH (21:48)
[2018-02-01] MEDS ORDERED: ARIPiprazole 5 MG TABLET (FP) ONE (08:57)
[2018-02-01] MEDS: BUDESONIDE/FORMETEROL FUMARATE 160/4.5 mcg INHALER IH SCH ×2 (10:30→21:50)
[2018-02-01] MEDS: PRENATAL VITAMINS W/ FOLIC ACID TABLET (FP) PO SCH (10:30)
[2018-02-01] MEDS: LACTULOSE 20 GM/30 ML UDC (FOR ORAL USE ONLY) PO SCH ×2 (10:31→21:49)
[2018-02-01] MEDS: ARIPiprazole 10 MG TABLET PO SCH (10:31)
[2018-02-01] MEDS: CITALOPRAM HYDROBROMIDE 20 MG TABLET (FP) PO SCH (10:31)
[2018-02-01] MEDS: NICOTINE 21 MG/24 HOURS TOPICAL PATCH TD SCH (10:32)
[2018-02-01] MEDS: PANTOPRAZOLE 40 MG TABLET (FP) PO SCH (10:32)
[2018-02-01] MEDS: LIDOCAINE 5% TOPICAL PATCH TP SCH (10:32)
[2018-02-01] MEDS: LIDOCAINE PATCH REMOVAL MC SCH (21:49)
[2018-02-01] MEDS: traZODone HCL 50 MG TABLET (FP) PO SCH (21:49)
[2018-02-01] MEDS: MELATONIN 5 MG TABLETS PO PRN (21:50)
[2018-02-01] MEDS: THIAMINE HCL 100 MG TABLET (FP) PO SCH (21:51)
[2018-02-01] MEDS ORDERED: PT OWN MED DRAWER 7, Y5N ONE ×2 (21:52→21:54)
[2018-02-02] MEDS ORDERED: ARIPiprazole 5 MG TABLET (FP) ONE (08:55)
[2018-02-02] MEDS ORDERED: PT OWN MED DRAWER 7, Y5N ONE (09:25)
[2018-02-02] MEDS: BUDESONIDE/FORMETEROL FUMARATE 160/4.5 mcg INHALER IH SCH ×2 (10:32→21:40)
[2018-02-02] MEDS: CITALOPRAM HYDROBROMIDE 20 MG TABLET (FP) PO SCH (10:32)
[2018-02-02] MEDS: PANTOPRAZOLE 40 MG TABLET (FP) PO SCH (10:32)
[2018-02-02] MEDS: NICOTINE 21 MG/24 HOURS TOPICAL PATCH TD SCH (10:32)
[2018-02-02] MEDS: ARIPiprazole 10 MG TABLET PO SCH (10:32)
[2018-02-02] MEDS: PRENATAL VITAMINS W/ FOLIC ACID TABLET (FP) PO SCH (10:32)
[2018-02-02] MEDS: LACTULOSE 20 GM/30 ML UDC (FOR ORAL USE ONLY) PO SCH (10:32)
[2018-02-02] MEDS: LIDOCAINE 5% TOPICAL PATCH TP SCH (10:32)
--- NOTE | 2018-02-02 13:06 | PN ---
[facility] Progress Note Note: PATIENT AMMONIA LEVEL NORMAL AT 30.2. WILL D/C LACTULOSE. CONTINUE TO MONITOR CLINICALLY.
--- NOTE | 2018-02-02 17:14 | PN ---
Psychiatric Progress Note Vital Signs: Vital Signs Period Temp Pulse Resp BP Sys/[place] Pulse Ox Last 24 Hr 97.8 F 58 16-18 96/59 Date of Session: 02/02/18 Chief Complaint:: progress update. HPI: patient addressed Cannabis,Cocaine,Alcohol and Opioid dependence comorbid with Bipolar disorder,PTSD. ROS: Significant for Chronic arthritis. Current Medications: Active Medications Generic Name Dose Route Start Last Admin Trade Name Freq PRN Reason Stop Dose Admin Al Hydroxide/Mg Hydroxide 30 ml 01/28/18 14:41 Mylanta Oral Suspension - PO Q6H PRN DYSPEPSIA Albuterol Sulfate 2 puff 01/28/18 14:47 01/29/18 10:12 Ventolin Hfa Inhaler - IH 2 puff Q4H PRN Administration SHORT OF BREATH/WHEEZING Aripiprazole 10 mg 01/28/18 16:00 02/02/18 10:32 Abilify PO Not Given DAILY EMILIANO Budesonide/Formoterol Fumarate 2 puff 01/28/18 22:00 02/02/18 10:32 Symbicort 160/4.5mcg - IH Not Given BID EMILIANO Citalopram Hydrobromide 60 mg 02/03/18 10:00 Celexa - PO DAILY EMILIANO Eucalyptus/Menthol/Phenol/Sorbitol 1 each 01/28/18 14:41 Cepastat Lozenge - MM Q4H PRN SORE THROAT Guaifenesin 10 ml 01/28/18 14:41 Robitussin Dm - PO Q6H PRN COUGH Hydroxyzine Pamoate 50 mg 01/28/18 14:41 01/28/18 21:22 Vistaril - PO 50 mg Q4H PRN Administration AGITATION Lidocaine 1 patch 01/29/18 11:00 02/02/18 10:32 Lidoderm Patch - TP Not Given DAILY EMILIANO Loperamide HCl 4 mg 01/28/18 14:41 Imodium - PO Q6H PRN DIARRHEA Magnesium Citrate 300 ml 01/28/18 14:41 Citroma - PO Q48H PRN CONSTIPATION Magnesium Hydroxide 30 ml 01/28/18 14:41 Milk Of Magnesia - PO DAILY PRN CONSTIPATION Melatonin 5 mg 01/28/18 22:00 02/01/18 21:50 Melatonin PO 5 mg HS PRN Administration INSOMNIA Miscellaneous 1 each 01/29/18 22:00 02/01/18 21:49 Lidoderm Patch Removal MC 1 each DAILY@2200 EMILIANO Administration Nicotine 21 mg 01/29/18 10:00 02/02/18 10:32 Nicoderm Patch - TD Not Given DAILY EMILIANO Nicotine Polacrilex 2 mg 01/28/18 14:41 Nicorette Gum - BUC Q2H PRN NICOTINE REPLACEMENT RX Pantoprazole Sodium 40 mg 01/29/18 10:00 02/02/18 10:32 Protonix - PO Not Given DAILY EMILIANO Multivit/Folic Acid/Iron 1 tab 01/29/18 10:00 02/02/18 10:32 Vitamins (Sjr) - PO Not Given DAILY EMILIANO Pseudoephedrine/Triprolidine 1 combo 01/28/18 14:41 Actifed - PO TID PRN NASAL CONGESTION Thiamine HCl 100 mg 01/28/18 22:00 02/01/18 21:51 Vitamin B1 - PO 100 mg HS EMILIANO Administration Trazodone HCl 150 mg 01/28/18 22:00 02/01/18 21:49 Desyrel - PO Not Given HS EMILIANO Current Side Effect: No Lab tests ordered: No Lab tests reviewed: Yes Provider note:: Chart was revuewed,patient was seen regarding her request to restart her Celexa 60 mg po daily which she states has been helping her to cope with depression for long time.Properies of Celexa has been discussed with the patient including side effects,benefits and dose adjustment.The dose of Celexa 60 mg po daily was decreased to 40 mg po daily due to high ammonia level.Patient will continue Abilify 10 mg po daily and TRazododne 150 mg po hs.Celexa 40 mg po daily will be adjusted to 60 mg po daily since her ammonia level has been improved. Psychoeducation,emotional support provided. Total face to face time:: 25 Mental Status Exam - Mental Status Exam Alert and Oriented to: Time, Place, Person Cognitive Function: Grossly Intact Patient Appearance: Well Groomed Mood: Irritable Affect: Mood Congruent Patient Behavior: Cooperative Speech Pattern: Clear Voice Loudness: Normal Thought Process: Goal Oriented Thought Disorder: Being Controlled Hallucinations: Denies Suicidal Ideation: Denies Homicidal Ideation: Denies Insight/Judgement: Fair Sleep: Fair Appetite: Good Muscle strength/Tone: Normal Gait/Station: Normal Psychiatric Treatment Plan - Problem List (1) Cannabis dependence Current Visit: Yes (2) Cocaine dependence Current Visit: Yes (3) Arthritis Current Visit: Yes (4) Bipolar disorder Current Visit: Yes Qualifiers: Current episode severity: unspecified (5) Alcohol dependence Current Visit: Yes (6) Nicotine dependence Current Visit: Yes Qualifiers: Nicotine product type: cigarettes Substance use status: uncomplicated Qualified Code(s): F17.210 - Nicotine dependence, cigarettes, uncomplicated (7) Opiate dependence Current Visit: Yes Qualifiers: Complication of substance-induced condition: uncomplicated (8) Post traumatic stress disorder (PTSD) Current Visit: Yes Comment: According to her psychiatrist,Dr Romina Tejeda. (9) Bipolar II disorder Current Visit: Yes
[2018-02-02] MEDS: MELATONIN 5 MG TABLETS PO PRN (21:39)
[2018-02-02] MEDS: THIAMINE HCL 100 MG TABLET (FP) PO SCH (21:39)
[2018-02-02] MEDS: traZODone HCL 50 MG TABLET (FP) PO SCH (21:42)
[2018-02-02] MEDS: LIDOCAINE PATCH REMOVAL MC SCH (21:42)
[2018-02-03] MEDS ORDERED: ARIPiprazole 5 MG TABLET (FP) ONE (08:51)
[2018-02-03] MEDS: LIDOCAINE 5% TOPICAL PATCH TP SCH (10:20)
[2018-02-03] MEDS: NICOTINE 21 MG/24 HOURS TOPICAL PATCH TD SCH (10:20)
[2018-02-03] MEDS: ARIPiprazole 10 MG TABLET PO SCH (10:20)
[2018-02-03] MEDS: PRENATAL VITAMINS W/ FOLIC ACID TABLET (FP) PO SCH (10:21)
[2018-02-03] MEDS: CITALOPRAM HYDROBROMIDE 20 MG TABLET (FP) PO SCH (10:21)
[2018-02-03] MEDS: PANTOPRAZOLE 40 MG TABLET (FP) PO SCH (10:22)
[2018-02-03] MEDS: BUDESONIDE/FORMETEROL FUMARATE 160/4.5 mcg INHALER IH SCH ×2 (10:22→21:46)
[2018-02-03] MEDS: ALBUTEROL SO4 18 GM HFA INHALER IH PRN (10:23)
--- NOTE | 2018-02-03 14:18 | PN ---
[facility] Progress Note Note: Patient schedule for d/c. Patient to follow up with PMD upon discharge.
[2018-02-03] MEDS: traZODone HCL 50 MG TABLET (FP) PO SCH (21:45)
[2018-02-03] MEDS: THIAMINE HCL 100 MG TABLET (FP) PO SCH (21:46)
[2018-02-03] MEDS: LIDOCAINE PATCH REMOVAL MC SCH (21:47)
[2018-02-03] MEDS: MELATONIN 5 MG TABLETS PO PRN (21:47)
[2018-02-04 06:59] VITALS: BP 103/65; PULSE 59; TEMP 98
--- NOTE | 2018-02-04 08:38 | PN ---
Psychiatric Progress Note Vital Signs: Vital Signs Period Temp Pulse Resp BP Sys/[place] Pulse Ox Last 24 Hr 98.0 F 59 16-18 103/65 Date of Session: 02/04/18 Chief Complaint:: Discharge visit HPI: Opioid,Cannabis,Alcohol and Cocaine dependence comorbid with Bipolar disorder,PTSD. ROS: Athritis,BA,GERD,Prediabetes,Neuropathy. Current Medications: Active Medications Generic Name Dose Route Start Last Admin Trade Name Freq PRN Reason Stop Dose Admin Al Hydroxide/Mg Hydroxide 30 ml 01/28/18 14:41 Mylanta Oral Suspension - PO Q6H PRN DYSPEPSIA Albuterol Sulfate 2 puff 01/28/18 14:47 02/03/18 10:23 Ventolin Hfa Inhaler - IH 2 puff Q4H PRN Administration SHORT OF BREATH/WHEEZING Aripiprazole 10 mg 01/28/18 16:00 02/03/18 10:20 Abilify PO Not Given DAILY EMILIANO Budesonide/Formoterol Fumarate 2 puff 01/28/18 22:00 02/03/18 21:46 Symbicort 160/4.5mcg - IH 2 puff BID EMILIANO Administration Citalopram Hydrobromide 60 mg 02/03/18 10:00 02/03/18 10:21 Celexa - PO 60 mg DAILY EMILIANO Administration Eucalyptus/Menthol/Phenol/Sorbitol 1 each 01/28/18 14:41 Cepastat Lozenge - MM Q4H PRN SORE THROAT Guaifenesin 10 ml 01/28/18 14:41 Robitussin Dm - PO Q6H PRN COUGH Hydroxyzine Pamoate 50 mg 01/28/18 14:41 01/28/18 21:22 Vistaril - PO 50 mg Q4H PRN Administration AGITATION Lidocaine 1 patch 01/29/18 11:00 02/03/18 10:20 Lidoderm Patch - TP Not Given DAILY EMILIANO Loperamide HCl 4 mg 01/28/18 14:41 Imodium - PO Q6H PRN DIARRHEA Magnesium Citrate 300 ml 01/28/18 14:41 Citroma - PO Q48H PRN CONSTIPATION Magnesium Hydroxide 30 ml 01/28/18 14:41 Milk Of Magnesia - PO DAILY PRN CONSTIPATION Melatonin 5 mg 01/28/18 22:00 02/03/18 21:47 Melatonin PO 5 mg HS PRN Administration INSOMNIA Miscellaneous 1 each 01/29/18 22:00 02/03/18 21:47 Lidoderm Patch Removal MC 1 each DAILY@2200 EMILIANO Administration Nicotine 21 mg 01/29/18 10:00 02/03/18 10:20 Nicoderm Patch - TD 21 mg DAILY EMILIANO Administration Nicotine Polacrilex 2 mg 01/28/18 14:41 Nicorette Gum - BUC Q2H PRN NICOTINE REPLACEMENT RX Pantoprazole Sodium 40 mg 01/29/18 10:00 02/03/18 10:22 Protonix - PO 40 mg DAILY EMILIANO Administration Multivit/Folic Acid/Iron 1 tab 01/29/18 10:00 02/03/18 10:21 Vitamins (Sjr) - PO 1 tab DAILY EMILIANO Administration Pseudoephedrine/Triprolidine 1 combo 01/28/18 14:41 Actifed - PO TID PRN NASAL CONGESTION Thiamine HCl 100 mg 01/28/18 22:00 02/03/18 21:46 Vitamin B1 - PO 100 mg HS EMILIANO Administration Trazodone HCl 150 mg 01/28/18 22:00 02/03/18 21:45 Desyrel - PO Not Given HS EMILIANO Current Side Effect: No Lab tests ordered: No Lab tests reviewed: Yes Provider note:: Patient completed this program today.She has met her treatment goals and will continue to address her issues on outpatient basis at [facility].patient repots finding that current medications including Celexa 60 mg po daily and Trazodone 150 mg po hs help to cope with depression,anxiety,sleeping difficulties.scripts for 30 days provided. Supportive thrapy provided focusing on relapse prevention.Coping skills,support utilization has been discussed with thepatient as well as othe resourses to maintain recovery,Patient is stable for discharge today. Total face to face time:: 30 Mental Status Exam - Mental Status Exam Alert and Oriented to: Time, Place, Person Cognitive Function: Grossly Intact Patient Appearance: Well Groomed Mood: Euthymic Affect: Appropriate, Mood Congruent Patient Behavior: Cooperative Speech Pattern: Clear Voice Loudness: Normal Thought Process: Goal Oriented Thought Disorder: Not Present Hallucinations: Denies Homicidal Ideation: Denies Insight/Judgement: Fair Sleep: Fair Appetite: Good Muscle strength/Tone: Normal Gait/Station: Normal Psychiatric Treatment Plan - Problem List (4) Bipolar disorder Qualifiers: Current episode severity: unspecified (6) Nicotine dependence Qualifiers: Nicotine product type: cigarettes Substance use status: uncomplicated Qualified Code(s): F17.210 - Nicotine dependence, cigarettes, uncomplicated (7) Opiate dependence Qualifiers: Complication of substance-induced condition: uncomplicated (8) Post traumatic stress disorder (PTSD) Comment: According to her psychiatrist,Dr Romina Tejeda.
[2018-02-04] MEDS ORDERED: ARIPiprazole 5 MG TABLET (FP) ONE (09:06)
[2018-02-04] MEDS ORDERED: PT OWN MED DRAWER 7, Y5N ONE (09:07)
[2018-02-04] MEDS: ARIPiprazole 10 MG TABLET PO SCH (09:41)
[2018-02-04] MEDS: CITALOPRAM HYDROBROMIDE 20 MG TABLET (FP) PO SCH (09:41)
[2018-02-04] MEDS: NICOTINE 21 MG/24 HOURS TOPICAL PATCH TD SCH (09:42)
[2018-02-04] MEDS: LIDOCAINE 5% TOPICAL PATCH TP SCH (09:42)
[2018-02-04] MEDS: PRENATAL VITAMINS W/ FOLIC ACID TABLET (FP) PO SCH (09:43)
[2018-02-04] MEDS: PANTOPRAZOLE 40 MG TABLET (FP) PO SCH (09:43)
[2018-02-04] MEDS: BUDESONIDE/FORMETEROL FUMARATE 160/4.5 mcg INHALER IH SCH (09:44)
== END 2018-02-04 09:52 | disposition home or self-care (01) | DRG 895 ==
LOC: YASAS 11:24 → Y3E 11:25
PROVIDERS: ADMIT Psychiatry & Neurology Psychiatry; ATTEND Psychiatry & Neurology Psychiatry
PROC: HZ42ZZZ Group Counseling for Substance Abuse Treatment, Cognitive-Behavioral (ICD-10-PCS; principal; 2018-01-28)
DX: F11.20 Opioid dependence, uncomplicated (principal); F14.20 Cocaine dependence, uncomplicated; F31.81 Bipolar II disorder; E72.20 Disorder of urea cycle metabolism, unspecified; F10.20 Alcohol dependence, uncomplicated; F12.20 Cannabis dependence, uncomplicated; F17.210 Nicotine dependence, cigarettes, uncomplicated; F43.10 Post-traumatic stress disorder, unspecified; J45.909 Unspecified asthma, uncomplicated; K21.9 Gastro-esophageal reflux disease without esophagitis; M19.90 Unspecified osteoarthritis, unspecified site; R73.03 Prediabetes; G62.9 Polyneuropathy, unspecified
CPT/HCPCS: 82140; Q0162

== ENCOUNTER 2019-02-20 14:49 | Inpatient (IN) | payer OTHER ==
[2019-02-20 18:08] VITALS: BMI 23.1
--- NOTE | 2019-02-20 21:35 | HP ---
CIWA Score Nausea/Vomitin-No Nausea/No Vomiting Muscle Tremors: 4-Moderate,w/Arms Extend Anxiety: 3 Agitation: 2 Paroxysmal Sweats: 3 (Increased facial moisture) Orientation: 0-Oriented Tacttile Disturbances: 0-None Auditory Disturbances: 0-None Visual Disturbances: 0-None Headache: 0-None Present CIWA-Ar Total Score: 12 - Admission Criteria OASAS Guidelines: Admission for Medically Managed Detox: Requires at least one of the followin. CIWA greater than 12 2. Seizures within the past 24 hours 3. Delirium tremens within the past 24 hours 4. Hallucinations within the past 24 hours 5. Acute intervention needed for co occurring medical disorder 6. Acute intervention needed for co occurring psychiatric disorder 7. Severe withdrawal that cannot be handled at a lower level of care (continued vomiting, continued diarrhea, abnormal vital signs) requiring intravenous medication and/or fluids 8. Patient presents the following: CIWA greater than 12 Admission Criteria Met: Admission criteria met Admission ROS [facility] Chief Complaint: Having alcohol withdrawal; Allergies/Adverse Reactions: Allergies Allergy/AdvReac Type Severity Reaction Status Date / Time ketorolac tromethamine Allergy Severe Itching Verified 02/20/19 18:01 [From Toradol] penicillin G Allergy Severe Itching Verified 02/20/19 18:01 latex Allergy Verified 02/20/19 18:01 morphine Allergy Verified 02/20/19 18:01 sulfamethoxazole Allergy Verified 02/20/19 18:01 [From Bactrim] trimethoprim [From Bactrim] Allergy Verified 02/20/19 18:01 History of Present Illness: 58 yo with alcohol withdrawal anc co-occurring cocaine use disorder here for detox. Fx (R) ankle 2 weeks ago. Seen at [facility] and given a boot to wear. States was given Percocet for pain. Alcohol use began at age 58. Current use 1 pint x 2-3 weeks. Cocaine use began at age 56. Marijuana use 1 x /month. Nicotine use began at age 13. Smokes 8 cig/day. Utox + THC, RADHA, OXY FADUMO: 0 HCG Neg Denies seizures, blackouts, overdoses. Longest length of sobriety x 1 week. Homeless and in and out of half-way system. Last EK04/10/18 - NSR w/ poss (L) atrial enlargement - No significant changes from 01/24/18 EKG. PMHx: Fx ankle, Asthma, GERD, MHHx: Anxiety, Depression. Bipolar. Denies thoughts of harming self or others. Last saw MH Provider 1 month. States takes Abiliify, Neurontin, and Celexa for MH reasons. Ambien for sleep. Search Terms: Elvira Pandey, 1960 Search Date: 02/20/2019 09:59:33 PM The Drug Utilization Report below displays all of the controlled substance prescriptions, if any, that your patient has filled in the last twelve months. The information displayed on this report is compiled from pharmacy submissions to the Department, and accurately reflects the information as submitted by the pharmacies. This report was requested by: Mitra Rasmussen | Reference #: [id number] There are no results for the search terms that you entered. Search Terms: Elvira Pandey, 1960 Search Date: 02/20/2019 10:00:43 PM States Searched: [place], [place], [place], [place], [place], [place], [place] The Drug Utilization Report below displays the controlled substance prescriptions, if any, that were dispensed in the indicated state(s). The information displayed on this report is compiled from requests submitted to other states' PMPs, and accurately reflects the information as returned by them. Blank valdes indicate data not provided by other state. This report was requested by: Mitra Rasmussen | Reference #: [id number] Exam Limitations: No Limitations - Ebola screening Have you traveled outside of the country in the last 21 days: No (N) Have you had contact with anyone from an Ebola affected area: No Have you been sick,other than usual withdrawal symptoms: No (Denies reent exposure to measles) Do you have a fever: No - Review of Systems Constitutional: Chills, Diaphoresis (Increased facial moisture) EENT: reports: No Symptoms Reported, Dental Problems (No teeth.) Respiratory: reports: No Symptoms reported Cardiac: reports: No Symptoms Reported GI: reports: No Symptoms Reported : reports: No Symptoms Reported Musculoskeletal: reports: Back Pain (Chronic mid-back sharp pain "8". Increases w/ walking, standing. Improves w/ rest.), Joint Pain ((R) ankle sharp /achy. Occurs w/ walking. Improves w/ rest.) Integumentary: reports: No Symptoms Reported Neuro: reports: Numbness ((R) foot) Endocrine: reports: No Symptoms Reported Hematology: reports: No Symptoms Reported Psychiatric: reports: Judgement Intact, Orientated x3, Anxious, Depressed ( Denies thoughts of harming self or others.) Patient History - Patient Medical History Hx Anemia: No Hx Asthma: Yes (ON MDI) Hx Chronic Obstructive Pulmonary Disease (COPD): No Hx Cancer: No Hx Cardiac Disorders: No Hx Congestive Heart Failure: No Hx Hypertension: No Hx Hypercholesterolemia: No Hx Pacemaker: No HX Cerebrovascular Accident: No Hx Seizures: No Hx Dementia: No Hx Diabetes: No Hx Gastrointestinal Disorders: No Hx Liver Disease: No Hx Genitourinary Disorders: No Hx Sexually Transmitted Disorders: No Hx Renal Disease (ESRD): No Hx Thyroid Disease: No Hx Human Immunodeficiency Virus (HIV): No (last 02/07 negative) Hx Hepatitis C: No Hx Depression: Yes Hx Suicide Attempt: No Hx Bipolar Disorder: Yes Hx Schizophrenia: No - Patient Surgical History Past Surgical History: Yes Hx Neurologic Surgery: No Hx Cataract Extraction: No Hx Cardiac Surgery: No Hx Lung Surgery: No Hx Breast Surgery: No Hx Breast Biopsy: No Hx Abdominal Surgery: No Hx Appendectomy: No Hx Cholecystectomy: No Hx Genitourinary Surgery: No Hx Section: No Hx Orthopedic Surgery: Yes (knees replacement 2016 ) Hx Hysterectomy: Yes (2003) Other Surgical History: feet surgery repair of tendons/ligament in 2014, Back surgery 2018 Anesthesia Reaction: No - PPD History Previous Implant?: Yes Documented Results: Negative w/proof Implanted On Prior [facility] Admission?: Yes Date: 01/27/18 Results: 0mm PPD to be Administered?: Yes - Reproductive History Patient is a Female of Child Bearing Age (11 -55 yrs old): No Last Menstrual Period: 08/15/07 - Smoking Cessation Smoking history: Current every day smoker Have you smoked in the past 12 months: Yes Aproximately how many cigarettes per day: 8 Cigars Per Day: 0 Hx Chewing Tobacco Use: No Initiated information on smoking cessation: Yes 'Breaking Loose' booklet given: 02/20/19 - Substance & Tx. History Hx Alcohol Use: Yes Hx Substance Use: Yes Substance Use Type: Alcohol, Cocaine Hx Substance Use Treatment: Yes (detox, rehab) - Substances abused Alcohol Substance route: Oral Frequency: Daily Amount used: 1 BOTTLE RUM Age of first use: 58 Date of last use: 02/20/19 Cocaine Other (specify): SNIFF Substance route: Smoking Frequency: Daily Amount used: $600 Age of first use: 56 Date of last use: 02/20/19 Family Disease History - Family Disease History Family Disease History: Diabetes: Sister, Heart Disease: Mother, Sister, Daughter, Other: Father (no contact) Admission Physical Exam S - Vital Signs Vital Signs: Vital Signs - 24 hr 02/20/19 02/20/19 17:54 21:11 Temperature 97.5 F L 97.5 F L Pulse Rate 77 77 Respiratory 18 18 Rate Blood Pressure 159/89 159/89 - Physical General Appearance: Yes: Nourished, Mild Distress, Tremorous, Sweating ( Increased facial moisture), Anxious HEENTM: Yes: EOMI, Hearing grossly Normal, Normocephalic, Normal Voice, FRANK, Pharynx Normal Respiratory: Yes: Lungs Clear, Normal Breath Sounds, No Respiratory Distress Neck: Yes: No masses,lesions,Nodules, Supple Breast: Yes: Breast Exam Deferred Cardiology: Yes: Regular Rhythm, Regular Rate, S1, S2 Abdominal: Yes: Non Tender, Soft, Increased Bowel Sounds Genitourinary: Yes: Within Normal Limits Back: Yes: Surgical Scar Musculoskeletal: Yes: Joint swelling ((R) foot/ankle w/ swelling from 3 inches above ankle to toes. Pedal pulses (+). Color of (R) foor darker hue than (L). Cap refill < 3 sec.) Extremities: Yes: Normal Capillary Refill, Tremors (Mod tremors of hands w/ arm elevation) 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: Yes: readiness paraprofessional II-XII NML intact, Fully Oriented, Alert, Motor Strength 5/5 Integumentary: Yes: Warm, Diaphoresis (Increased facial moisture) Lymphatic: Yes: Within Normal Limits - Diagnostic (1) History of asthma Current Visit: Yes Status: Chronic (2) Alcohol dependence with uncomplicated withdrawal Current Visit: Yes Status: Acute (3) Cocaine dependence Current Visit: Yes Status: Chronic Qualifiers: Substance use status: uncomplicated Qualified Code(s): F14.20 - Cocaine dependence, uncomplicated (4) GERD (gastroesophageal reflux disease) Current Visit: Yes Status: Chronic Qualifiers: Esophagitis presence: without esophagitis Qualified Code(s): K21.9 - Gastro -esophageal reflux disease without esophagitis (5) History of back surgery Current Visit: Yes Status: Chronic (6) Nicotine dependence Current Visit: Yes Status: Chronic Qualifiers: Nicotine product type: cigarettes Substance use status: uncomplicated Qualified Code(s): F17.210 - Nicotine dependence, cigarettes, uncomplicated (7) History of fracture of right ankle Current Visit: Yes Status: Acute Comment: Fx (R) ankle 2 weeks ago. Cleared for Admission [facility] - Detox or Rehab [facility] Level of Care: Medically Managed Detox Regimen/Protocol: Librium Claeared for Rehab Admission: No Breathalyzer - Breathalyzer Breathalyzer: 0 Urine Drug Screen - Test Device Lot number: [id number] Expiration date: 10/20/20 - Control Is test valid?: Yes - Results Drug screen NEGATIVE: No Urine drug screen results: THC-Marijuana, RADHA-Cocaine, MOP-Opiates, OXY- Oxycodone, MTD-Methadone Inpatient Rehab Admission - Rehab Decision to Admit Inpatient rehab admission?: No
[2019-02-20] MEDS ORDERED: NICOTINE POLACRILEX 2 MG GUM BUC PRN (22:35)
[2019-02-20] MEDS ORDERED: ACETAMINOPHEN 325 MG TABLET (FP) PO PRN ×2 (22:35)
[2019-02-20] MEDS ORDERED: MENTHOL/PHENOL 1 EACH UD MM PRN (22:35)
[2019-02-20] MEDS ORDERED: MAGNESIUM HYDROX 2400MG/30ML ORAL SUSPENSION 30 ML CUP PO PRN (22:35)
[2019-02-20] MEDS ORDERED: chlordiazePOXIDE HCL 25 MG CAPSULE PO ONE (22:35)
[2019-02-20] MEDS ORDERED: MAG HYDROX/AL HYDROX/SIMETH 30 ML UNIT-DOSE CUP PO PRN (22:35)
[2019-02-20] MEDS ORDERED: MELATONIN 5 MG TABLETS PO PRN (22:35)
[2019-02-20] MEDS ORDERED: MAGNESIUM CITRATE 300 ML BOTTLE PO PRN (22:35)
[2019-02-20] MEDS ORDERED: IBUPROFEN 400 MG TABLET (FP) PO PRN (22:35)
[2019-02-20] MEDS ORDERED: chlordiazePOXIDE HCL 10 MG CAPSULE PO PRN ×2 (22:35→23:00)
[2019-02-20] MEDS ORDERED: METHOCARBAMOL 500 MG TABLET PO PRN (22:35)
[2019-02-20] MEDS: chlordiazePOXIDE HCL 25 MG CAPSULE PO SCH ×3 (23:25→23:36)
[2019-02-20] MEDS ORDERED: IBUPROFEN 600 MG TABLET (FP) PO PRN (23:41)
[2019-02-21] MEDS ORDERED: chlordiazePOXIDE 5 MG CAPSULE PO SCH (05:00)
[2019-02-21] MEDS: chlordiazePOXIDE HCL 25 MG CAPSULE PO SCH ×3 (07:12→23:31)
[2019-02-21 09:52] LABS: HEMATOCRIT 43.4 % (32.4-45.2); HEMOGLOBIN 14.1 GM/dL (10.7-15.3); MCH 29.9 pg (25.7-33.7); MCHC 32.5 g/dl (32.0-36.0); MEAN PLT VOLUME 8.2 fl (7.5-11.1); PLATELET COUNT 273 K/MM3 (134-434); RBC 4.72 M/mm3 (3.60-5.2); RDW 14.2 % (11.6-15.6); WHITE BLOOD COUNT 5.7 K/mm3 (4.0-10.0)
[2019-02-21 10:07] LABS: ALBUMIN 3.3 g/dl (3.4-5.0); BILIRUBIN,TOTAL 0.5 mg/dL (0.2-1); BLOOD UREA NITROGEN 20.3 mg/dL (7-18); CALCIUM 9.4 mg/dL (8.5-10.1); CREATININE 0.7 mg/dL (0.55-1.3); TOT PROT 6.2 g/dl (6.4-8.2)
[2019-02-21] MEDS: PRENATAL VITAMINS W/ FOLIC ACID TABLET (FP) PO SCH (10:58)
[2019-02-21] MEDS: PREGABALIN 100 MG CAPSULE PO SCH ×2 (10:58→23:32)
[2019-02-21] MEDS: PANTOPRAZOLE 40 MG TABLET (FP) PO SCH ×2 (10:59→23:32)
[2019-02-21] MEDS: NICOTINE 14 MG/24 HOURS TOPICAL PATCH TD SCH (10:59)
[2019-02-21] MEDS: BUDESONIDE/FORMETEROL FUMARATE 160/4.5 mcg INHALER IH SCH ×2 (10:59→23:32)
--- NOTE | 2019-02-21 11:15 | CONSULT ---
[facility] Psychiatric Consult - Data Date of interview: 02/21/19 Admission source: Self-referred Identifying data: Ms Esteves is a 58 years old Black female, mother of 5 children, unemployed receiving [employer], livibg with friend seeking detox treatment for alcohol and cocaine Substance Abuse History: Reports history of alcohol and cocaine use. Refer to addiction counselor's summary for further information Medical History: Significant for GERD, bronchial asthma, diabetes mellitus (diet -controlled), neuropathy, arthritis, irritable bowel syndrome, recent fracture right ankle, history of multiple surgeries(hysterectomy in 2004, orthosurgery for bilateral knee replacement in 2016/repair tendon,ligament foot, Laminectomy in 2018). Smokes 8 cigarettes daily Psychiatric History: Reports that her first psychiatric contact was in 2014 when she was diagnosed with Bipolar Disorder and PTSD and started on medications by a psychiatrist at an outpatient rehab. Reports that she has been receiving outpatient psychiatric treatment at [facility] in the [place] under the care of Roimna Tejeda. She is currently prescribed Celexa 60 mg /day, Abilify 10 mg/day and Gabapentin 400 mg/bid. Denies previous psychiatric hospitalization or suicidal attempt. At present, denies experiencing psychotic. manic or depressive symptoms, S/H ideations. However, reports feeling irritable and sleeping poorly Physical/Sexual Abuse/Trauma History: Denies emotional, physical or sexual abuse as wel as DV relationship Mental Status Exam - Mental Status Exam Alert and Oriented to: Time, Place, Person Cognitive Function: Fair Patient Appearance: Well Groomed Mood: Irritable Affect: Appropriate Patient Behavior: Uncooperative Speech Pattern: Clear Voice Loudness: Normal Thought Process: Intact, Goal Oriented Thought Disorder: Not Present Hallucinations: Denies Suicidal Ideation: Denies Homicidal Ideation: Denies Insight/Judgement: Poor Sleep: Poorly Appetite: Poor Muscle strength/Tone: Normal Gait/Station: Normal Psychiatric Findings - Problem List ([place] 1, 2,3) (1) Bipolar disorder Current Visit: No Status: Chronic Qualifiers: Current episode severity: unspecified (2) Post traumatic stress disorder (PTSD) Current Visit: No Status: Chronic Comment: According to her psychiatrist,Dr Romina Tejeda. (3) Substance induced mood disorder Current Visit: Yes Status: Acute (4) Substance-induced sleep disorder Current Visit: Yes Status: Acute (5) Alcohol dependence with uncomplicated withdrawal Current Visit: Yes Status: Acute (6) Cocaine dependence Current Visit: Yes Status: Acute Qualifiers: Substance use status: uncomplicated Qualified Code(s): F14.20 - Cocaine dependence, uncomplicated (7) Nicotine dependence Current Visit: Yes Status: Chronic (8) Bronchial asthma Current Visit: Yes Status: Acute (9) GERD (gastroesophageal reflux disease) Current Visit: Yes Status: Chronic Qualifiers: Esophagitis presence: without esophagitis Qualified Code(s): K21.9 - Gastro -esophageal reflux disease without esophagitis (10) History of back surgery Current Visit: Yes Status: Resolved (11) Arthritis Current Visit: No Status: Chronic (12) Knee joint replacement status Current Visit: No Status: Chronic (13) Neuropathic arthropathy Current Visit: No Status: Chronic Comment: lyrica 300 mg po bid - Initial Treatment Plan Initial Treatment Plan: 1) Continue Abilify 10 mg po daily. 2) Start Celexa 40 mg po daily. 3) Continue inpatient detoxification
--- NOTE | 2019-02-21 13:00 | PN ---
S CIWA - CIWA Score Nausea/Vomitin-No Nausea/No Vomiting Muscle Tremors: 4-Moderate,w/Arms Extend Anxiety: 3 Agitation: 3 Paroxysmal Sweats: 3 Orientation: 0-Oriented Tacttile Disturbances: 0-None Auditory Disturbances: 0-None Visual Disturbances: 0-None Headache: 0-None Present CIWA-Ar Total Score: 13 [facility] Progress Note (SOAP) Subjective: sweats sleepy tired interrupted sleep Objective: 02/21/19 14:20 Vital Signs Temperature 98.4 F 02/21/19 13:26 Pulse Rate 56 L 02/21/19 13:26 Respiratory Rate 17 02/21/19 13:26 Blood Pressure 125/74 02/21/19 13:26 O2 Sat by Pulse Oximetry (%) Laboratory Tests 02/21/19 02/21/19 02/21/19 06:30 06:30 06:30 WBC 5.7 RBC 4.72 Hgb 14.1 Hct 43.4 D MCV 92.0 MCH 29.9 MCHC 32.5 RDW 14.2 D Plt Count 273 D MPV 8.2 Sodium 143 Potassium 4.0 Chloride 111 H Carbon Dioxide 29 Anion Gap 4 L BUN 20.3 H Creatinine 0.7 Est GFR (CKD-EPI)AfAm 109.91 Est GFR (CKD-EPI)NonAf 94.84 Random Glucose 107 H Calcium 9.4 Total Bilirubin 0.5 AST 11 L ALT 16 Alkaline Phosphatase 75 Total Protein 6.2 L Albumin 3.3 L RPR Titer Nonreactive labs noted aaox3 ambulating no acute distress Assessment: 02/21/19 14:20 withdrawal sx Plan: continue detox increase fluids
[2019-02-21] MEDS: CITALOPRAM HYDROBROMIDE 20 MG TABLET (FP) PO SCH (14:57)
[2019-02-21] MEDS: ARIPiprazole 10 MG TABLET PO SCH (14:57)
[2019-02-21] MEDS: THIAMINE HCL 100 MG TABLET (FP) PO SCH (23:32)
[2019-02-22] MEDS ORDERED: chlordiazePOXIDE HCL 10 MG CAPSULE PO PRN
[2019-02-22] MEDS ORDERED: chlordiazePOXIDE HCL 10 MG CAPSULE PO SCH (05:00)
[2019-02-22] MEDS: chlordiazePOXIDE 5 MG CAPSULE PO SCH ×3 (06:59→22:30)
[2019-02-22] MEDS: ARIPiprazole 10 MG TABLET PO SCH (10:27)
[2019-02-22] MEDS: BUDESONIDE/FORMETEROL FUMARATE 160/4.5 mcg INHALER IH SCH ×2 (10:27→22:31)
[2019-02-22] MEDS: NICOTINE 14 MG/24 HOURS TOPICAL PATCH TD SCH (10:27)
[2019-02-22] MEDS: PANTOPRAZOLE 40 MG TABLET (FP) PO SCH ×2 (10:27→22:30)
[2019-02-22] MEDS: PRENATAL VITAMINS W/ FOLIC ACID TABLET (FP) PO SCH (10:27)
[2019-02-22] MEDS: PREGABALIN 100 MG CAPSULE PO SCH ×2 (10:27→22:30)
[2019-02-22] MEDS: CITALOPRAM HYDROBROMIDE 20 MG TABLET (FP) PO SCH (10:27)
--- NOTE | 2019-02-22 15:10 | PN ---
S CIWA - CIWA Score Nausea/Vomitin-No Nausea/No Vomiting Muscle Tremors: 3 Anxiety: 4-Mod. Anxious/Guarded Agitation: 3 Paroxysmal Sweats: 1-Minimal Palms Moist Orientation: 0-Oriented Tacttile Disturbances: 0-None Auditory Disturbances: 0-None Visual Disturbances: 0-None Headache: 0-None Present CIWA-Ar Total Score: 11 BHS Progress Note (SOAP) Subjective: ANXIETY,TREMORS, CHILLS,FATIGUE. Objective: 02/22/19 15:08 Vital Signs - 24 hr 02/21/19 02/21/19 02/22/19 17:28 21:32 00:30 Temperature 97.2 F L Pulse Rate 62 57 L Respiratory 16 16 18 Rate Blood Pressure 128/72 106/52 L 02/22/19 02/22/19 02/22/19 03:30 08:26 09:45 Temperature 100.6 F H 98.6 F Pulse Rate 59 L 63 Respiratory 16 16 18 Rate Blood Pressure 142/75 130/75 02/22/19 13:24 Temperature 97.4 F L Pulse Rate 59 L Respiratory 17 Rate Blood Pressure 144/74 Laboratory Tests 02/21/19 02/21/19 02/21/19 06:30 06:30 06:30 WBC 5.7 RBC 4.72 Hgb 14.1 Hct 43.4 D MCV 92.0 MCH 29.9 MCHC 32.5 RDW 14.2 D Plt Count 273 D MPV 8.2 Sodium 143 Potassium 4.0 Chloride 111 H Carbon Dioxide 29 Anion Gap 4 L BUN 20.3 H Creatinine 0.7 Est GFR (CKD-EPI)AfAm 109.91 Est GFR (CKD-EPI)NonAf 94.84 Random Glucose 107 H Calcium 9.4 Total Bilirubin 0.5 AST 11 L ALT 16 Alkaline Phosphatase 75 Total Protein 6.2 L Albumin 3.3 L RPR Titer Nonreactive Assessment: 02/22/19 15:09 WITHDRAWAL SX Plan: CONTINUE DETOX INCREASE PO FLUIDS
[2019-02-22] MEDS: THIAMINE HCL 100 MG TABLET (FP) PO SCH (22:31)
[2019-02-23] MEDS ORDERED: chlordiazePOXIDE HCL 10 MG CAPSULE PO PRN
[2019-02-23] MEDS ORDERED: chlordiazePOXIDE HCL 10 MG CAPSULE PO ONE (05:00)
[2019-02-23] MEDS: chlordiazePOXIDE HCL 10 MG CAPSULE PO SCH ×3 (06:13→22:51)
[2019-02-23] MEDS: CITALOPRAM HYDROBROMIDE 20 MG TABLET (FP) PO SCH (10:39)
[2019-02-23] MEDS: PRENATAL VITAMINS W/ FOLIC ACID TABLET (FP) PO SCH (10:40)
[2019-02-23] MEDS: PREGABALIN 100 MG CAPSULE PO SCH ×2 (10:40→22:50)
--- NOTE | 2019-02-23 11:03 | PN ---
S CIWA - CIWA Score Nausea/Vomitin-No Nausea/No Vomiting Muscle Tremors: None Anxiety: 2 Agitation: 0-Normal Activity Paroxysmal Sweats: 3 Orientation: 0-Oriented Tacttile Disturbances: 0-None Auditory Disturbances: 0-None Visual Disturbances: 0-None Headache: 2-Mild CIWA-Ar Total Score: 7 S Progress Note (SOAP) Subjective: c/o anxiety and headache. Objective: 02/23/19 11:02 Vital Signs 02/23/19 02/23/19 02/23/19 03:30 06:00 09:34 Temperature 97.7 F 98.6 F Pulse Rate 55 L 81 Respiratory 18 18 16 Rate Blood Pressure 103/72 125/72 Lab Results WBC 5.7 K/mm3 (4.0-10.0) 02/21/19 06:30 RBC 4.72 M/mm3 (3.60-5.2) 02/21/19 06:30 Hgb 14.1 GM/dL (10.7-15.3) 02/21/19 06:30 Hct 43.4 % (32.4-45.2) D 02/21/19 06:30 MCV 92.0 fl (80-96) 02/21/19 06:30 MCHC 32.5 g/dl (32.0-36.0) 02/21/19 06:30 RDW 14.2 % (11.6-15.6) D 02/21/19 06:30 Plt Count 273 K/MM3 (134-434) D 02/21/19 06:30 Sodium 143 mmol/L (136-145) 02/21/19 06:30 Potassium 4.0 mmol/L (3.5-5.1) 02/21/19 06:30 Chloride 111 mmol/L (98-107) H 02/21/19 06:30 Carbon Dioxide 29 mmol/L (21-32) 02/21/19 06:30 Anion Gap 4 MMOL/L (8-16) L 02/21/19 06:30 BUN 20.3 mg/dL (7-18) H 02/21/19 06:30 Creatinine 0.7 mg/dL (0.55-1.3) 02/21/19 06:30 Random Glucose 107 mg/dL (74-106) H 02/21/19 06:30 Calcium 9.4 mg/dL (8.5-10.1) 02/21/19 06:30 labs noted. Assessment: 02/23/19 11:02 AOX3, in no acute respiratory distress Full ROM, ambulating in the unit. withdrawal symptoms. Plan: continue detox.
[2019-02-23] MEDS: NICOTINE 14 MG/24 HOURS TOPICAL PATCH TD SCH (11:54)
[2019-02-23] MEDS: BUDESONIDE/FORMETEROL FUMARATE 160/4.5 mcg INHALER IH SCH ×2 (11:54→22:54)
[2019-02-23] MEDS: PANTOPRAZOLE 40 MG TABLET (FP) PO SCH ×2 (11:54→22:50)
[2019-02-23] MEDS: ARIPiprazole 10 MG TABLET PO SCH (11:54)
[2019-02-23] MEDS: THIAMINE HCL 100 MG TABLET (FP) PO SCH (22:54)
[2019-02-24 00:20] LABS: EPI CELLS 3.5 /HPF (0-5/HPF); HYALINE CASTS 4 /lpf (0-8); URINE APPEARANCE CLOUDY; URINE BILIRUBIN NEGATIVE (NEGATIVE); URINE COLOR DK YELLOW; URINE GLUCOSE (UA) NEGATIVE (NEGATIVE); URINE KETONE TRACE (NEGATIVE); URINE LEUK ESTERASE TRACE (NEGATIVE); URINE NITRITE NEGATIVE (NEGATIVE); URINE PROTEIN NEGATIVE (NEGATIVE); URINE RBC 5 /hpf (0-4); URINE WBC 1 /hpf (0-5)
[2019-02-24 00:52] LABS: URINE CRYSTALS 1+ /hpf
[2019-02-24] MEDS ORDERED: chlordiazePOXIDE HCL 10 MG CAPSULE PO ONE (05:00)
[2019-02-24 06:49] VITALS: PULSE 52
--- NOTE | 2019-02-24 09:47 | DS ---
[facility] Detox Discharge Summary Admission Date: 02/20/19 Discharge Date: 02/24/19 - History Present History: Alcohol Dependence, Cocaine Dependence - Physical Exam Results Vital Signs: Vital Signs Temperature 96.6 F L 02/24/19 06:48 Pulse Rate 52 L 02/24/19 06:48 Respiratory Rate 16 02/24/19 06:48 Blood Pressure 116/75 02/24/19 06:48 O2 Sat by Pulse Oximetry (%) - Treatment Hospital Course: Detox Protocol Followed, Detoxed Safely, Responded well, Discharged Condition Good - Medication Discharge Medications: Ambulatory Orders Pregabalin [Lyrica -] 300 mg PO BID 12/04/16 Budesonide/Formeterol Fumarate [SYMBICORT 160/4.5mcg -] 1 inh PO BID #1 inhaler 02/03/18 Pantoprazole Sodium [Protonix -] 40 mg PO BID #30 tablet.ec 02/03/18 Gabapentin [Neurontin -] 400 mg PO BID 04/10/18 Albuterol Sulfate Inhaler - [Ventolin HFA Inhaler -] 2 puff IH Q4H PRN #1 inhaler 04/13/18 Budesonide/Formeterol Fumarate [SYMBICORT 160/4.5mcg -] 2 puff IH BID #1 inhaler 04/13/18 Aripiprazole [Abilify -] 15 mg PO DAILY@1400 #30 tablet 04/20/18 Citalopram Hydrobromide [Celexa -] 60 mg PO DAILY #90 tablet 04/20/18 - Diagnosis (1) Alcohol dependence with uncomplicated withdrawal Current Visit: Yes Status: Chronic (2) Bronchial asthma Current Visit: Yes Status: Chronic Qualifiers: Asthma severity: mild (3) Cocaine dependence Current Visit: Yes Status: Chronic Qualifiers: Substance use status: uncomplicated Qualified Code(s): F14.20 - Cocaine dependence, uncomplicated (4) GERD (gastroesophageal reflux disease) Current Visit: Yes Status: Chronic Qualifiers: Esophagitis presence: without esophagitis Qualified Code(s): K21.9 - Gastro -esophageal reflux disease without esophagitis (5) History of asthma Current Visit: Yes Status: Chronic (6) Nicotine dependence Current Visit: Yes Status: Chronic - AMA Did Patient Leave Against Medical Advice: No
[2019-02-24] MEDS: PANTOPRAZOLE 40 MG TABLET (FP) PO SCH (10:29)
[2019-02-24] MEDS: PREGABALIN 100 MG CAPSULE PO SCH (10:29)
[2019-02-24] MEDS: BUDESONIDE/FORMETEROL FUMARATE 160/4.5 mcg INHALER IH SCH (10:29)
[2019-02-24] MEDS: CITALOPRAM HYDROBROMIDE 20 MG TABLET (FP) PO SCH (10:29)
[2019-02-24] MEDS: NICOTINE 14 MG/24 HOURS TOPICAL PATCH TD SCH (10:29)
[2019-02-24] MEDS: ARIPiprazole 10 MG TABLET PO SCH (10:29)
[2019-02-24] MEDS: PRENATAL VITAMINS W/ FOLIC ACID TABLET (FP) PO SCH (10:29)
[2019-02-24 11:51] VITALS: BP 116/60; TEMP 97.3
== END 2019-02-24 13:10 | disposition other institution (70) | DRG 897 ==
LOC: YASAS 14:49 → Y6N 22:37
PROVIDERS: ADMIT Surgery; ATTEND Surgery
PROC: HZ2ZZZZ Detoxification Services for Substance Abuse Treatment (ICD-10-PCS; principal; 2019-02-20)
DX: F10.230 Alcohol dependence with withdrawal, uncomplicated (principal); F14.20 Cocaine dependence, uncomplicated; F19.282 Other psychoactive substance dependence with psychoactive substance-induced sleep disorder; F12.20 Cannabis dependence, uncomplicated; F17.210 Nicotine dependence, cigarettes, uncomplicated; F43.10 Post-traumatic stress disorder, unspecified; F31.9 Bipolar disorder, unspecified; F19.24 Other psychoactive substance dependence with psychoactive substance-induced mood disorder; J45.909 Unspecified asthma, uncomplicated; K21.9 Gastro-esophageal reflux disease without esophagitis; M12.9 Arthropathy, unspecified; M14.60 Charcot's joint, unspecified site; Z96.653 Presence of artificial knee joint, bilateral; Z88.0 Allergy status to penicillin; Z88.2 Allergy status to sulfonamides; Z88.8 Allergy status to other drugs, medicaments and biological substances
CPT/HCPCS: 36415; 80053; 81003; 85027; 86593

== ENCOUNTER 2019-02-24 12:29 | Inpatient (IN) | payer OTHER ==
[2019-02-24] MEDS ORDERED: MENTHOL/PHENOL 1 EACH UD MM PRN (14:45)
[2019-02-24] MEDS ORDERED: MAGNESIUM CITRATE 300 ML BOTTLE PO PRN (14:45)
[2019-02-24] MEDS ORDERED: MAG HYDROX/AL HYDROX/SIMETH 30 ML UNIT-DOSE CUP PO PRN (14:45)
[2019-02-24] MEDS ORDERED: LOPERAMIDE HCL 2 MG CAPSULE PO PRN (14:45)
[2019-02-24] MEDS ORDERED: hydrOXYzine PAMOATE 25 MG CAPSULE (FP) PO PRN (14:45)
[2019-02-24] MEDS ORDERED: IBUPROFEN 400 MG TABLET (FP) PO PRN (14:45)
[2019-02-24] MEDS ORDERED: P-EPHED 60MG/TRIPROLIDI 2.5MG TABLET PO PRN (14:45)
[2019-02-24] MEDS ORDERED: ACETAMINOPHEN 325 MG TABLET (FP) PO PRN (14:45)
[2019-02-24] MEDS ORDERED: MAGNESIUM HYDROX 2400MG/30ML ORAL SUSPENSION 30 ML CUP PO PRN (14:45)
[2019-02-24] MEDS ORDERED: guaiFENesin 200 MG/10 ML 10 ML UNIT-DOSE CUPS PO PRN (14:45)
[2019-02-24] MEDS ORDERED: ALBUTEROL SO4 8 GM HFA INHALER IH PRN (14:48)
[2019-02-24] MEDS: THIAMINE HCL 100 MG TABLET (FP) PO SCH (21:41)
[2019-02-24] MEDS: GABAPENTIN 400 MG CAPSULE (FP) PO SCH (21:42)
[2019-02-24] MEDS: BUDESONIDE/FORMETEROL FUMARATE 160/4.5 mcg INHALER IH SCH (21:42)
[2019-02-24] MEDS: PANTOPRAZOLE 40 MG TABLET (FP) PO SCH (21:42)
[2019-02-24] MEDS: MELATONIN 5 MG TABLETS PO PRN (21:44)
[2019-02-25] MEDS ORDERED: PT OWN MED DRAWER 7, Y5N ONE (09:04)
[2019-02-25] MEDS: GABAPENTIN 400 MG CAPSULE (FP) PO SCH (09:58)
[2019-02-25] MEDS: PANTOPRAZOLE 40 MG TABLET (FP) PO SCH ×2 (09:58→21:16)
[2019-02-25] MEDS: CITALOPRAM HYDROBROMIDE 20 MG TABLET (FP) PO SCH (09:59)
[2019-02-25] MEDS: PRENATAL VITAMINS W/ FOLIC ACID TABLET (FP) PO SCH (09:59)
[2019-02-25] MEDS ORDERED: CITALOPRAM HYDROBROMIDE 20 MG TABLET (FP) PO SCH (10:00)
[2019-02-25] MEDS: NICOTINE 14 MG/24 HOURS TOPICAL PATCH TD SCH (10:01)
[2019-02-25] MEDS: BUDESONIDE/FORMETEROL FUMARATE 160/4.5 mcg INHALER IH SCH ×2 (10:01→21:18)
[2019-02-25] MEDS ORDERED: ARIPiprazole 15 MG TABLET PO SCH (14:00)
[2019-02-25] MEDS: ARIPiprazole 10 MG TABLET PO SCH (14:56)
[2019-02-25] MEDS: THIAMINE HCL 100 MG TABLET (FP) PO SCH (21:16)
[2019-02-25] MEDS: PREGABALIN 75 MG CAPSULE PO SCH (21:17)
[2019-02-25] MEDS: MELATONIN 5 MG TABLETS PO PRN (21:18)
[2019-02-26] MEDS ORDERED: PT OWN MED DRAWER 7, Y5N ONE ×2 (08:51→10:19)
[2019-02-26 09:51] VITALS: BP 103/68; PULSE 56; TEMP 97.9
[2019-02-26] MEDS: PANTOPRAZOLE 40 MG TABLET (FP) PO SCH (10:06)
[2019-02-26] MEDS: PREGABALIN 75 MG CAPSULE PO SCH (10:06)
[2019-02-26] MEDS: PRENATAL VITAMINS W/ FOLIC ACID TABLET (FP) PO SCH (10:06)
[2019-02-26] MEDS: BUDESONIDE/FORMETEROL FUMARATE 160/4.5 mcg INHALER IH SCH (10:07)
[2019-02-26] MEDS: CITALOPRAM HYDROBROMIDE 20 MG TABLET (FP) PO SCH (10:07)
[2019-02-26] MEDS: NICOTINE 14 MG/24 HOURS TOPICAL PATCH TD SCH (10:10)
[2019-02-26] MEDS: ARIPiprazole 10 MG TABLET PO SCH (13:46)
--- NOTE | 2019-02-26 15:26 | PN ---
[facility] Progress Note Note: patient did not want to complete treatment,all attempts patient to stay with no avail, high risks of relapsing explained,patient understood,patent signed release ama, left the unit in stable condition Vital Signs Temperature 97.9 F 02/26/19 09:50 Pulse Rate 56 L 02/26/19 09:50 Respiratory Rate 18 02/26/19 09:50 Blood Pressure 103/68 02/26/19 09:50 O2 Sat by Pulse Oximetry (%)
--- NOTE | 2019-02-26 16:43 | PN ---
[facility] Progress Note Note: this is the discharge summary for rehab date of admission 02/24/19 date of discharge 02/26/19 diagnosis alcohol dependence cocaine dependence asthma gerd nicotine dependence cane ambulation patient left ama,left unit in stable condition,has all medication with her, stated will follow up with her medical provider
== END 2019-02-26 15:40 | disposition left against medical advice (07) | DRG 894 ==
LOC: YASAS 12:29 → Y3E 12:31
PROVIDERS: ADMIT Neuromusculoskeletal Medicine & OMM; ATTEND Neuromusculoskeletal Medicine & OMM
PROC: HZ42ZZZ Group Counseling for Substance Abuse Treatment, Cognitive-Behavioral (ICD-10-PCS; principal; 2019-02-24)
DX: F10.20 Alcohol dependence, uncomplicated (principal); F14.20 Cocaine dependence, uncomplicated; F17.210 Nicotine dependence, cigarettes, uncomplicated; J45.909 Unspecified asthma, uncomplicated; K21.9 Gastro-esophageal reflux disease without esophagitis; Z99.89 Dependence on other enabling machines and devices; Z59.0 Homelessness

== ENCOUNTER 2019-04-20 15:04 | Inpatient (IN) | payer OTHER ==
[2019-04-20 17:38] VITALS: BMI 23.1
--- NOTE | 2019-04-20 19:28 | HP ---
CIWA Score Nausea/Vomitin-No Nausea/No Vomiting Muscle Tremors: 4-Moderate,w/Arms Extend Anxiety: 4-Mod. Anxious/Guarded Agitation: 4-Moderately Restless Paroxysmal Sweats: 3 (Increased facial moisture) Orientation: 0-Oriented Tacttile Disturbances: 0-None Auditory Disturbances: 0-None Visual Disturbances: 0-None Headache: 0-None Present CIWA-Ar Total Score: 15 - Admission Criteria OASAS Guidelines: Admission for Medically Managed Detox: Requires at least one of the followin. CIWA greater than 12 2. Seizures within the past 24 hours 3. Delirium tremens within the past 24 hours 4. Hallucinations within the past 24 hours 5. Acute intervention needed for co occurring medical disorder 6. Acute intervention needed for co occurring psychiatric disorder 7. Severe withdrawal that cannot be handled at a lower level of care (continued vomiting, continued diarrhea, abnormal vital signs) requiring intravenous medication and/or fluids 8. Patient presents the following: CIWA greater than 12 Admission Criteria Met: Admission criteria met Admission ROS [facility] Chief Complaint: Here for detox from alcohol. States having withdrawal symptoms. Allergies/Adverse Reactions: Allergies Allergy/AdvReac Type Severity Reaction Status Date / Time ketorolac tromethamine Allergy Severe Itching Verified 04/20/19 17:30 [From Toradol] penicillin G Allergy Severe Itching Verified 04/20/19 17:30 latex Allergy Verified 04/20/19 17:30 morphine Allergy Verified 04/20/19 17:30 sulfamethoxazole Allergy Verified 04/20/19 17:30 [From Bactrim] trimethoprim [From Bactrim] Allergy Verified 04/20/19 17:30 History of Present Illness: 58 yo with alcohol withdrawal and co-occurring cocaine use disorder seeking detox. Last in [facility]: 02/20-01/08: Detox. Only completed 2 days of rehab. States relapsed the same day she left. Seen in [facility] ED for (L) wrist and back pain. Was given a removable wrist splint. Historical information to substance use is inconsistent. Alcohol use began at age 11/12. Had 25 years of sobriety and relapsed at 58. Current use greater than 2 pints liquor since February. Last drink today. Cocaine use began at age 56. Last use today. Marijuana use began at age 13. Smokes 1-2x/month. Last use today. Nicotine use began at age 13. Smokes 5-7 cig/day. Utox + THC, RADHA, MET FADUMO: 0 HCG Neg Denies seizures, blackouts, overdoses. Last RPR: 02/2019 - Non-reactive. Will not repeat this visit. PMHx: Asthma (last exacerbation months ago), GERD, Fx ankle, (L) wrist pain . Discussed oxycodone prescriptions and risks of dependency. States missed last prescription but will be getting new ones on discharge. MHHx: Anxiety, Depression. Bipolar. Denies thoughts of harming self or others. Last saw MH Provider 1 month ago. States takes Abiliify, Neurontin, and Celexa for MH reasons. Ambien for sleep. SHx: Homeless. Unemployed. Denies legal issues. Patient Name: Elvira Esteves Date: 1960 Address: [address] [place] [address] Sex: Female Rx Written Rx Dispensed Drug Quantity Days Supply Prescriber Name 03/03/2019 03/06/2019 oxycodone-acetaminophen 10-325 mg tab 210 30 Yumi Carrizales MD 02/22/2019 02/22/2019 zolpidem tartrate 10 mg tablet 30 30 Ileana, Romina Crowell MD 01/20/2019 01/23/2019 oxycodone-acetaminophen 10-325 mg tab 210 30 Rukhsana Johns MD 01/21/2019 01/22/2019 zolpidem tartrate 10 mg tablet 30 30 Ileana, Romina Crowell MD 12/15/2018 12/23/2018 zolpidem tartrate 10 mg tablet 30 30 Ileana, Romina Crowell MD 12/23/2018 12/23/2018 oxycodone-acetaminophen 10-325 mg tab 210 30 Le Mckenna) 11/17/2018 11/23/2018 oxycodone-acetaminophen 10-325 mg tab 210 30 Le Mckenna) 11/19/2018 11/20/2018 zolpidem tartrate 10 mg tablet 30 30 Ileana, Romina Crowell MD 06/02/2018 11/14/2018 lyrica 300 mg capsule 60 30 Le Mckenna) 10/21/2018 10/23/2018 oxycodone-acetaminophen 10-325 mg tab 210 30 Le Mckenna) 06/02/2018 10/18/2018 lyrica 300 mg capsule 60 30 Le Mckenna) 10/13/2018 10/18/2018 zolpidem tartrate 10 mg tablet 30 30 Ileana, Romina Crowell MD 06/02/2018 09/23/2018 lyrica 300 mg capsule 60 30 Le Mckenna) 09/23/2018 09/23/2018 oxycodone-acetaminophen 10-325 mg tab 210 30 Le Mckenna) 09/07/2018 09/19/2018 zolpidem tartrate 10 mg tablet 30 30 Ileana, Romina Crowell MD 09/05/2018 09/07/2018 oxycodone-acetaminophen 10-325 mg tab 90 13 Richie Bryan MD 06/02/2018 08/19/2018 lyrica 300 mg capsule 60 30 Le Mckenna) 08/10/2018 08/19/2018 zolpidem tartrate 10 mg tablet 30 30 Ileana, Romina Crowell MD 08/01/2018 08/02/2018 oxycodone-acetaminophen 10-325 mg tab 210 20 Le Mckenna) 07/21/2018 07/24/2018 zolpidem tartrate 10 mg tablet 30 30 Ileana, Romina Crowell MD 06/02/2018 07/20/2018 lyrica 300 mg capsule 60 30 Le Mckenna) 07/05/2018 07/05/2018 endocet 10-325 mg tablet 240 20 Edilberto Alcocer ) 06/15/2018 06/24/2018 zolpidem tartrate 10 mg tablet 30 30 Ileana, Romina Crowell MD 06/02/2018 06/03/2018 endocet 10-325 mg tablet 240 20 Le Mckenna) 06/02/2018 06/03/2018 lyrica 300 mg capsule 60 30 Le Mckenna) 05/25/2018 05/25/2018 zolpidem tartrate 10 mg tablet 30 30 Ileana, Romina Crowell MD 05/04/2018 05/06/2018 endocet 10-325 mg tablet 240 20 Le Mckenna) 04/27/2018 04/27/2018 zolpidem tartrate 10 mg tablet 30 30 Ileana, Romina Crowell MD Patient Name: Elvira Esteves Date: 1960 Address: [address] [place] [id number] Sex: Female Rx Written Rx Dispensed Drug Quantity Days Supply Prescriber Name 03/07/2018 04/26/2018 lyrica 300 mg capsule 60 30 Le Mckenna) Exam Limitations: No Limitations - Ebola screening Have you traveled outside of the country in the last 21 days: No (N) Have you had contact with anyone from an Ebola affected area: No Have you been sick,other than usual withdrawal symptoms: No (Denies measles exposure) Do you have a fever: No - Review of Systems Constitutional: Chills, Diaphoresis, Changes in sleep EENT: reports: Blurred Vision Respiratory: reports: No Symptoms reported Cardiac: reports: No Symptoms Reported GI: reports: Diarrhea (watery, brown,), Indigestion (Heart burn) : reports: No Symptoms Reported Musculoskeletal: reports: Back Pain (Chronic sharp back pain. "9". Triggers by movement. Nothing makes it better.), Joint Pain (Bone pain (L) wrist and thumb. "8". Triggers w/ moving hand. Improves w/ splint.) Integumentary: reports: Other (Burn (R) flank area) Neuro: reports: Tremors Endocrine: reports: Increased Thirst Hematology: reports: No Symptoms Reported Psychiatric: reports: Judgement Intact, Orientated x3, Agitated, Anxious, Depressed (Denies thoughts of harming self or others) Patient History - Patient Medical History Hx Anemia: No Hx Asthma: Yes Hx Chronic Obstructive Pulmonary Disease (COPD): No Hx Cancer: No Hx Cardiac Disorders: No Hx Congestive Heart Failure: No Hx Hypertension: No Hx Hypercholesterolemia: No Hx Pacemaker: No HX Cerebrovascular Accident: No Hx Seizures: No Hx Dementia: No Hx Diabetes: No Hx Gastrointestinal Disorders: No Hx Liver Disease: No Hx Genitourinary Disorders: No Hx Sexually Transmitted Disorders: No Hx Renal Disease (ESRD): No Hx Thyroid Disease: No Hx Human Immunodeficiency Virus (HIV): No (last 02/07 negative) Hx Hepatitis C: No Hx Depression: Yes Hx Suicide Attempt: No Hx Bipolar Disorder: Yes Hx Schizophrenia: No - Patient Surgical History Past Surgical History: Yes Hx Neurologic Surgery: No Hx Cataract Extraction: No Hx Cardiac Surgery: No Hx Lung Surgery: No Hx Breast Surgery: No Hx Breast Biopsy: No Hx Abdominal Surgery: No Hx Appendectomy: No Hx Cholecystectomy: No Hx Genitourinary Surgery: No Hx Section: No Hx Orthopedic Surgery: Yes (knees replacement 2016 ) Hx Hysterectomy: Yes (2003) Other Surgical History: feet surgery repair of tendons/ligament in 2014, Back surgery 2018 Anesthesia Reaction: No - PPD History Previous Implant?: Yes Documented Results: Negative w/proof Implanted On Prior [facility] Admission?: Yes Date: 02/23/19 Results: 0mm PPD to be Administered?: No - Reproductive History Last Menstrual Period: 08/15/07 - Smoking Cessation Smoking history: Current every day smoker Have you smoked in the past 12 months: Yes Aproximately how many cigarettes per day: 8 Cigars Per Day: 0 Hx Chewing Tobacco Use: No Initiated information on smoking cessation: Yes 'Breaking Loose' booklet given: 04/20/19 - Substance & Tx. History Hx Alcohol Use: Yes Hx Substance Use: Yes Substance Use Type: Alcohol, Cocaine, Marijuana Hx Substance Use Treatment: Yes (detox, rehab) - Substances abused Alcohol Substance route: Oral Frequency: Daily Amount used: 1 BOTTLE RUM Age of first use: 58 Date of last use: 04/20/19 Cocaine Other (specify): SNIFF Substance route: Smoking Frequency: Daily Amount used: $600 Age of first use: 56 Date of last use: 04/20/19 Family Disease History - Family Disease History Family Disease History: Diabetes: Sister, Heart Disease: Mother, Sister, Daughter, Other: Father (no contact) Admission Physical Exam BHS - Vital Signs Vital Signs: Vital Signs - 24 hr 04/20/19 17:28 Temperature 97.3 F L Pulse Rate 73 Respiratory 18 Rate Blood Pressure 126/69 - Physical General Appearance: Yes: Mild Distress, Alcohol on Breath, Tremorous, Sweating ( Increased facial moisture), Anxious HEENTM: Yes: EOMI, Hearing grossly Normal, Normocephalic, Normal Voice, FRANK, Pharynx Normal Respiratory: Yes: Lungs Clear, Normal Breath Sounds, No Respiratory Distress Neck: Yes: No masses,lesions,Nodules, Supple Breast: Yes: Breast Exam Deferred Cardiology: Yes: Regular Rhythm, Regular Rate, S1, S2 Abdominal: Yes: Non Tender, Soft, Increased Bowel Sounds Genitourinary: Yes: Within Normal Limits Back: Yes: Normal Inspection Musculoskeletal: Yes: Gait Steady (But slow.), Joint swelling ((L) thumb w/ increased swelling and tenderness and decreased mobility.) Extremities: Yes: Normal Capillary Refill, Tremors 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: 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: 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 NML intact, Fully Oriented, Alert, Motor Strength 5/5 Integumentary: Yes: Normal Color, Warm, Other (Dry, flaky skin between toes and bottom of feet.) Lymphatic: Yes: Within Normal Limits - Diagnostic (1) Localized swelling of left thumb Current Visit: Yes Status: Chronic Comment: With tenderness (2) History of fracture of right ankle Current Visit: Yes Status: Chronic (3) Alcohol dependence with uncomplicated withdrawal Current Visit: Yes Status: Acute (4) Cannabis dependence Current Visit: Yes Status: Chronic (5) Cocaine dependence Current Visit: Yes Status: Chronic Qualifiers: Substance use status: uncomplicated Qualified Code(s): F14.20 - Cocaine dependence, uncomplicated (6) GERD (gastroesophageal reflux disease) Current Visit: Yes Status: Chronic Qualifiers: Esophagitis presence: without esophagitis Qualified Code(s): K21.9 - Gastro -esophageal reflux disease without esophagitis (7) History of asthma Current Visit: No Status: Chronic (8) Tinea pedis Current Visit: Yes Status: Chronic Qualifiers: Laterality: bilateral Qualified Code(s): B35.3 - Tinea pedis (9) Nicotine dependence Current Visit: Yes Status: Chronic Qualifiers: Nicotine product type: cigarettes Substance use status: uncomplicated Qualified Code(s): F17.210 - Nicotine dependence, cigarettes, uncomplicated Cleared for Admission S - Detox or Rehab [facility] Level of Care: Medically Managed Detox Regimen/Protocol: Sammyium Claeared for Rehab Admission: No Breathalyzer - Breathalyzer Breathalyzer: 0 Urine Drug Screen - Test Device Lot number: [id number] Expiration date: 01/19/21 - Control Is test valid?: Yes - Results Drug screen NEGATIVE: No Urine drug screen results: THC-Marijuana, RADHA-Cocaine, MET-Methamphetamine Inpatient Rehab Admission - Rehab Decision to Admit Inpatient rehab admission?: No
[2019-04-20] MEDS ORDERED: MAGNESIUM HYDROX 2400MG/30ML ORAL SUSPENSION 30 ML CUP PO PRN (20:03)
[2019-04-20] MEDS ORDERED: MAG HYDROX/AL HYDROX/SIMETH 30 ML UNIT-DOSE CUP PO PRN (20:03)
[2019-04-20] MEDS ORDERED: ACETAMINOPHEN 325 MG TABLET (FP) PO PRN ×2 (20:03)
[2019-04-20] MEDS ORDERED: MENTHOL/PHENOL 1 EACH UD MM PRN (20:03)
[2019-04-20] MEDS ORDERED: IBUPROFEN 400 MG TABLET (FP) PO PRN (20:03)
[2019-04-20] MEDS ORDERED: MAGNESIUM CITRATE 300 ML BOTTLE PO PRN (20:03)
[2019-04-20] MEDS ORDERED: chlordiazePOXIDE HCL 10 MG CAPSULE PO PRN (20:03)
[2019-04-20] MEDS ORDERED: ALBUTEROL SO4 0.083% IH SOL 2.5 MG/3 ML VIAL.NEB. NEB PRN (20:07)
[2019-04-20] MEDS: PREGABALIN 100 MG CAPSULE PO SCH (21:29)
[2019-04-20] MEDS: chlordiazePOXIDE HCL 25 MG CAPSULE PO SCH (21:29)
[2019-04-20] MEDS: GABAPENTIN 400 MG CAPSULE (FP) PO SCH (21:29)
[2019-04-20] MEDS: PANTOPRAZOLE 40 MG TABLET (FP) PO SCH (21:29)
[2019-04-20] MEDS: MELATONIN 5 MG TABLETS PO PRN (21:30)
[2019-04-20] MEDS: THIAMINE HCL 100 MG TABLET (FP) PO SCH (21:30)
[2019-04-20] MEDS: BUDESONIDE/FORMETEROL FUMARATE 160/4.5 mcg INHALER IH SCH (21:35)
[2019-04-21] MEDS: chlordiazePOXIDE HCL 25 MG CAPSULE PO SCH ×3 (06:16→22:14)
[2019-04-21] MEDS: PANTOPRAZOLE 40 MG TABLET (FP) PO SCH ×2 (10:48→22:13)
[2019-04-21] MEDS: TOLNAFTATE 1% CREAM 15 GM TUBE TP SCH ×2 (10:48→22:16)
[2019-04-21] MEDS: PREGABALIN 100 MG CAPSULE PO SCH ×2 (10:48→22:13)
[2019-04-21] MEDS: GABAPENTIN 400 MG CAPSULE (FP) PO SCH ×2 (10:48→22:14)
[2019-04-21] MEDS: PETROLATUM, WHITE 30 GM TUBE TP SCH (10:49)
[2019-04-21] MEDS: PRENATAL VITAMINS W/ FOLIC ACID TABLET (FP) PO SCH (10:49)
[2019-04-21] MEDS: BUDESONIDE/FORMETEROL FUMARATE 160/4.5 mcg INHALER IH SCH ×2 (10:49→22:16)
[2019-04-21] MEDS: NICOTINE 14 MG/24 HOURS TOPICAL PATCH TD SCH (10:49)
[2019-04-21 11:49] LABS: HEMATOCRIT 38.8 % (32.4-45.2); HEMOGLOBIN 12.6 GM/dL (10.7-15.3); MCH 30.2 pg (25.7-33.7); MCHC 32.5 g/dl (32.0-36.0); MEAN PLT VOLUME 8.7 fl (7.5-11.1); PLATELET COUNT 196 K/MM3 (134-434); RBC 4.18 M/mm3 (3.60-5.2)
[2019-04-21 12:32] LABS: BILIRUBIN,TOTAL 0.5 mg/dL (0.2-1); BLOOD UREA NITROGEN 16.4 mg/dL (7-18); CALCIUM 8.7 mg/dL (8.5-10.1); CREATININE 0.7 mg/dL (0.55-1.3); TOT PROT 5.6 g/dl (6.4-8.2)
--- NOTE | 2019-04-21 12:43 | CONSULT ---
[facility] Psychiatric Consult - Data Date of interview: 04/21/19 Admission source: [facility] Identifying data: This is one of several admissions to [facility] for this 58 y/ o AA female self-referred for detoxification (alcohol, cocaine/crack). Interviewd at [address] [place] [address]. Patient is , a mother of five, domiciled, unemployed and supported on [facility] benefits. Substance Abuse History: Confirmed by the patient. Discussed in this interview. Details in current [facility] report as follows : Smoking history: Current every day smoker. Have you smoked in the past 12 months: Yes. Aproximately how many cigarettes per day: 8. Cigars Per Day: 0. Hx Chewing Tobacco Use: No. Initiated information on smoking cessation: Yes. 'Breaking Loose' booklet given : 04/20/19. - Substance & Tx. History. Hx Alcohol Use: Yes. Hx Substance Use : Yes. Substance Use Type: Alcohol, Cocaine, Marijuana. Hx Substance Use Treatment: Yes (detox, rehab). - Substances abused. Alcohol. Substance route: Oral. Frequency: Daily. Amount used: 1 BOTTLE RUM. Age of first use: 58. Date of last use: 04/20/19. Cocaine. Other (specify): SNIFF. Substance route: Smoking. Frequency: Daily. Amount used: $600. Age of first use: 56. Date of last use: 04/20/19 Medical History: Medical profile is remarkable for GERD, bronchial asthma, diabetes mellitus (diet-controlled), neuropathy, arthritis, irritable bowel syndrome, history of multiple surgeries (hysterectomy in 2004, orthosurgery : fracture of right ankle, bilateral knee replacement, tendon + ligament repair in foot, laminectomy). Psychiatric History: First contact with a psychiatric care provider : 2014 ( outpatient rehabilitation center). Patient, at the time, got diagnosed with Bipolar Disorder and PTSD. Ms Esteves is still under the care of Dr Romina Tejeda, psychiatrist at the [facility] clinic in the [place]. Patient is managed with a regimen of celexa 20 mg/day + abilify 10 mg/ day + gabapentin 400 mg/tid + zolpidem 10 mg/hs (as per refills of 01/22/19 + at [facility]). No reported history of psychiatric hospitalizations. Patient denies history of suicide attempts. Physical/Sexual Abuse/Trauma History: Patient denies. Additional Comment: Urine drug screen results: THC-Marijuana, RADHA-Cocaine, MET- Methamphetamine. Noted. Mental Status Exam - Mental Status Exam Alert and Oriented to: Time, Place, Person Cognitive Function: Grossly Intact Patient Appearance: Unkempt, Disheveled Mood: Hostile, Nervous, Irritable Affect: Mood Congruent, Blunted Patient Behavior: Inappropriate, Fatigued, Cooperative (marginally cooperative) Speech Pattern: Clear Voice Loudness: Normal Thought Process: Goal Oriented Thought Disorder: Not Present Hallucinations: Denies Suicidal Ideation: Denies Homicidal Ideation: Denies Insight/Judgement: Poor Sleep: Fair Appetite: Good (empty foodtrays at bedside) Gait/Station: Normal Psychiatric Findings - Problem List (Conrad 1, 2,3) (1) Alcohol dependence with uncomplicated withdrawal Current Visit: Yes Status: Acute (2) Cannabis dependence Current Visit: Yes Status: Chronic (3) Cocaine dependence Current Visit: Yes Status: Chronic Qualifiers: Substance use status: uncomplicated Qualified Code(s): F14.20 - Cocaine dependence, uncomplicated (4) Nicotine dependence Current Visit: Yes Status: Chronic Qualifiers: Nicotine product type: cigarettes Substance use status: uncomplicated Qualified Code(s): F17.210 - Nicotine dependence, cigarettes, uncomplicated (5) Substance induced mood disorder Current Visit: Yes Status: Chronic (6) History of bipolar disorder Current Visit: Yes Status: Acute (7) Post traumatic stress disorder (PTSD) Current Visit: Yes Status: Chronic Comment: As per history and records. (8) Non-compliance Current Visit: Yes Status: Chronic - Initial Treatment Plan Initial Treatment Plan: Psychoeducation. Sleep hygiene. Detoxification. Support. Hold citalopram and aripriprazole until EKG available. Observation.
--- NOTE | 2019-04-21 14:01 | PN ---
S CIWA - CIWA Score Nausea/Vomitin Muscle Tremors: 2 Anxiety: 2 Agitation: 2 Paroxysmal Sweats: No Perspiration Orientation: 0-Oriented Tacttile Disturbances: 1-Very Mild Itch/Numbness Auditory Disturbances: 0-None Visual Disturbances: 0-None Headache: 2-Mild CIWA-Ar Total Score: 11 S Progress Note (SOAP) Subjective: alert,irritable,anxious,interrupted sleep,pain in the body and back Objective: 04/21/19 14:00 Vital Signs Temperature 97.3 F L 04/21/19 13:59 Pulse Rate 48 L 04/21/19 13:59 Respiratory Rate 18 04/21/19 13:59 Blood Pressure 81/57 L 04/21/19 13:59 O2 Sat by Pulse Oximetry (%) Laboratory Last Values WBC 5.0 K/mm3 (4.0-10.0) 04/21/19 08:30 RBC 4.18 M/mm3 (3.60-5.2) 04/21/19 08:30 Hgb 12.6 GM/dL (10.7-15.3) 04/21/19 08:30 Hct 38.8 % (32.4-45.2) 04/21/19 08:30 MCV 93.0 fl (80-96) 04/21/19 08:30 MCH 30.2 pg (25.7-33.7) 04/21/19 08:30 MCHC 32.5 g/dl (32.0-36.0) 04/21/19 08:30 RDW 14.0 % (11.6-15.6) 04/21/19 08:30 Plt Count 196 K/MM3 (134-434) D 04/21/19 08:30 MPV 8.7 fl (7.5-11.1) 04/21/19 08:30 Sodium 143 mmol/L (136-145) 04/21/19 08:30 Potassium 4.0 mmol/L (3.5-5.1) 04/21/19 08:30 Chloride 112 mmol/L (98-107) H 04/21/19 08:30 Carbon Dioxide 20 mmol/L (21-32) L 04/21/19 08:30 Anion Gap 11 MMOL/L (8-16) 04/21/19 08:30 BUN 16.4 mg/dL (7-18) 04/21/19 08:30 Creatinine 0.7 mg/dL (0.55-1.3) 04/21/19 08:30 Est GFR (CKD-EPI)AfAm 109.91 04/21/19 08:30 Est GFR (CKD-EPI)NonAf 94.84 04/21/19 08:30 Random Glucose 92 mg/dL (74-106) 04/21/19 08:30 Calcium 8.7 mg/dL (8.5-10.1) 04/21/19 08:30 Total Bilirubin 0.5 mg/dL (0.2-1) 04/21/19 08:30 AST 31 U/L (15-37) 04/21/19 08:30 ALT 21 U/L (13-61) 04/21/19 08:30 Alkaline Phosphatase 68 U/L (45-117) 04/21/19 08:30 Total Protein 5.6 g/dl (6.4-8.2) L 04/21/19 08:30 Albumin 3.0 g/dl (3.4-5.0) L 04/21/19 08:30 POC Urine HCG, Qual Negative 04/20/19 18:16 Assessment: 04/21/19 14:00 withdrawal symptom Plan: continue detox librium regimen
[2019-04-21] MEDS: THIAMINE HCL 100 MG TABLET (FP) PO SCH (22:13)
[2019-04-21] MEDS: METHOCARBAMOL 500 MG TABLET PO PRN (22:14)
[2019-04-22] MEDS: chlordiazePOXIDE 5 MG CAPSULE PO SCH ×3 (06:01→21:34)
[2019-04-22] MEDS: PRENATAL VITAMINS W/ FOLIC ACID TABLET (FP) PO SCH (10:26)
[2019-04-22] MEDS: PREGABALIN 100 MG CAPSULE PO SCH ×2 (10:26→21:35)
[2019-04-22] MEDS: GABAPENTIN 400 MG CAPSULE (FP) PO SCH ×2 (10:26→21:34)
[2019-04-22] MEDS: BUDESONIDE/FORMETEROL FUMARATE 160/4.5 mcg INHALER IH SCH ×2 (10:26→21:34)
[2019-04-22] MEDS: TOLNAFTATE 1% CREAM 15 GM TUBE TP SCH ×2 (10:26→21:35)
[2019-04-22] MEDS: PANTOPRAZOLE 40 MG TABLET (FP) PO SCH ×2 (10:26→21:34)
[2019-04-22] MEDS: PETROLATUM, WHITE 30 GM TUBE TP SCH (10:27)
[2019-04-22] MEDS: NICOTINE 14 MG/24 HOURS TOPICAL PATCH TD SCH (11:06)
[2019-04-22] MEDS ORDERED: LACTULOSE 20 GM/30 ML UDC (FOR ORAL USE ONLY) PO ONE (14:27)
--- NOTE | 2019-04-22 16:12 | PN ---
S CIWA - CIWA Score Nausea/Vomitin-No Nausea/No Vomiting Muscle Tremors: 3 Anxiety: 4-Mod. Anxious/Guarded Agitation: 3 Paroxysmal Sweats: No Perspiration Orientation: 0-Oriented Tacttile Disturbances: 0-None Auditory Disturbances: 0-None Visual Disturbances: 0-None Headache: 0-None Present CIWA-Ar Total Score: 10 BHS Progress Note (SOAP) Subjective: 58 y/o female admitted for alcohol detox. Pt c/o anxiety, fatigue,tremors, upper quadrant abdominal discomfort and body pain. Denies nausea,vomiting, diarrhea. reports BM today but states she takes lactulose intermittently and "only that works for me". Pt requesting lactulose. Objective: 04/22/19 16:15 Alert o x 3 cardiac:s1 s2, rrr Lungs:cta,leonard., no sob Abdomen:soft but distended, +bs,tender to palp mid upper quad to right side. Assessment: 04/22/19 16:18 withdrawal sx Abdominal pain incomplete evacuation gas hx gerd-on protonix Plan: continue detox librium taper lIncrease po fluids D/w pt will give lactulose 20 mg po x 1 dose mylanta prn for gas motrin prn for body pain robaxin as directed. monitor bm and follow up with staff if sx persists.
[2019-04-22] MEDS: BISMUTH SUBSALICYLATE 524 MG/30 ML UD PO PRN ×2 (20:13→21:35)
[2019-04-22] MEDS: THIAMINE HCL 100 MG TABLET (FP) PO SCH (21:34)
[2019-04-22] MEDS: MELATONIN 5 MG TABLETS PO PRN (21:37)
[2019-04-23] MEDS ORDERED: chlordiazePOXIDE HCL 10 MG CAPSULE PO PRN
[2019-04-23] MEDS: chlordiazePOXIDE HCL 10 MG CAPSULE PO SCH ×3 (06:04→22:51)
--- NOTE | 2019-04-23 09:48 | PN ---
S CIWA - CIWA Score Nausea/Vomitin-Mild Nausea/No Vomiting Muscle Tremors: 2 Anxiety: 3 Agitation: 2 Paroxysmal Sweats: 1-Minimal Palms Moist Orientation: 0-Oriented Tacttile Disturbances: 0-None Auditory Disturbances: 0-None Visual Disturbances: 0-None Headache: 0-None Present CIWA-Ar Total Score: 9 S Progress Note (SOAP) Subjective: 58 years old female multiple patient [facility] admission since 2014 was admitted on 04/20/19 for acute alcohol withdrawal sx management doing well with libirum detox regimen left wrist sleeve secured fingers warm brisk capillary refilled full range of motion reporting that left wrist injured with unknown reason treated at [facility] Objective: 04/23/19 09:51 Vital Signs Temperature 98.1 F 04/23/19 09:46 Pulse Rate 70 04/23/19 09:46 Respiratory Rate 17 04/23/19 09:46 Blood Pressure 98/64 04/23/19 09:46 O2 Sat by Pulse Oximetry (%) Laboratory Last Values WBC 5.0 K/mm3 (4.0-10.0) 04/21/19 08:30 RBC 4.18 M/mm3 (3.60-5.2) 04/21/19 08:30 Hgb 12.6 GM/dL (10.7-15.3) 04/21/19 08:30 Hct 38.8 % (32.4-45.2) 04/21/19 08:30 MCV 93.0 fl (80-96) 04/21/19 08:30 MCH 30.2 pg (25.7-33.7) 04/21/19 08:30 MCHC 32.5 g/dl (32.0-36.0) 04/21/19 08:30 RDW 14.0 % (11.6-15.6) 04/21/19 08:30 Plt Count 196 K/MM3 (134-434) D 04/21/19 08:30 MPV 8.7 fl (7.5-11.1) 04/21/19 08:30 Sodium 143 mmol/L (136-145) 04/21/19 08:30 Potassium 4.0 mmol/L (3.5-5.1) 04/21/19 08:30 Chloride 112 mmol/L (98-107) H 04/21/19 08:30 Carbon Dioxide 20 mmol/L (21-32) L 04/21/19 08:30 Anion Gap 11 MMOL/L (8-16) 04/21/19 08:30 BUN 16.4 mg/dL (7-18) 04/21/19 08:30 Creatinine 0.7 mg/dL (0.55-1.3) 04/21/19 08:30 Est GFR (CKD-EPI)AfAm 109.91 04/21/19 08:30 Est GFR (CKD-EPI)NonAf 94.84 04/21/19 08:30 Random Glucose 92 mg/dL (74-106) 04/21/19 08:30 Calcium 8.7 mg/dL (8.5-10.1) 04/21/19 08:30 Total Bilirubin 0.5 mg/dL (0.2-1) 04/21/19 08:30 AST 31 U/L (15-37) 04/21/19 08:30 ALT 21 U/L (13-61) 04/21/19 08:30 Alkaline Phosphatase 68 U/L (45-117) 04/21/19 08:30 Total Protein 5.6 g/dl (6.4-8.2) L 04/21/19 08:30 Albumin 3.0 g/dl (3.4-5.0) L 04/21/19 08:30 POC Urine HCG, Qual Negative 04/20/19 18:16 lab noted Assessment: 04/23/19 09:51 alcohol withdrawal sx alert oriented x [address] "I do not want the cane" patient follow advice that pivot slowly Plan: continue librium detox regimen
[2019-04-23] MEDS: PANTOPRAZOLE 40 MG TABLET (FP) PO SCH ×2 (10:37→22:50)
[2019-04-23] MEDS: GABAPENTIN 400 MG CAPSULE (FP) PO SCH ×2 (10:37→22:50)
[2019-04-23] MEDS: PREGABALIN 100 MG CAPSULE PO SCH ×2 (10:37→22:50)
[2019-04-23] MEDS: PRENATAL VITAMINS W/ FOLIC ACID TABLET (FP) PO SCH (10:37)
[2019-04-23] MEDS: PETROLATUM, WHITE 30 GM TUBE TP SCH (10:38)
[2019-04-23] MEDS: TOLNAFTATE 1% CREAM 15 GM TUBE TP SCH ×2 (10:38→23:07)
[2019-04-23] MEDS: BUDESONIDE/FORMETEROL FUMARATE 160/4.5 mcg INHALER IH SCH ×2 (10:38→23:07)
[2019-04-23] MEDS: NICOTINE 14 MG/24 HOURS TOPICAL PATCH TD SCH (10:39)
[2019-04-23] MEDS: METHOCARBAMOL 500 MG TABLET PO PRN ×2 (10:40→22:50)
[2019-04-23] MEDS: ALBUTEROL SO4 8 GM HFA INHALER IH PRN ×2 (16:11→23:08)
--- NOTE | 2019-04-23 18:49 | PN ---
ÁLVAROS Progress Note Note: call to evaluate patient with epigastric pain alert,oriented x 3 lying comfortable in bed,no nausea,no vomiting heent normal neck no pain,movement of neck lung clear,no wheezing abdomen soft,no distention,no tenderness, bowel sound active no calf tenderness impression r/o gastritis treatment mylanta 30 cc po q 6 hrs prn close observation and monitoring
[2019-04-23] MEDS: THIAMINE HCL 100 MG TABLET (FP) PO SCH (22:50)
[2019-04-23] MEDS: MELATONIN 5 MG TABLETS PO PRN (22:52)
[2019-04-24] MEDS ORDERED: hydrOXYzine PAMOATE 50 MG CAPSULE (FP) PO ONE (01:47)
--- NOTE | 2019-04-24 01:47 | PN ---
S Progress Note Note: Patient states vomited up Lyrica and gabapentin earlier. Since voting was unwitnessed medication was not replaced. Now c/o inability to sleep. Will prescribe one dose of Vistaril 50 mg.
[2019-04-24] MEDS ORDERED: chlordiazePOXIDE HCL 10 MG CAPSULE PO ONE (05:00)
[2019-04-24] MEDS: METHOCARBAMOL 500 MG TABLET PO PRN ×2 (05:00→20:34)
--- NOTE | 2019-04-24 09:06 | PN ---
[facility] CIWA - CIWA Score Nausea/Vomitin-Mild Nausea/No Vomiting (no vomiting no epigastric pain today ) Muscle Tremors: 2 Anxiety: 3 Agitation: 2 Paroxysmal Sweats: 1-Minimal Palms Moist Orientation: 0-Oriented Tacttile Disturbances: 0-None Auditory Disturbances: 0-None Visual Disturbances: 0-None Headache: 0-None Present CIWA-Ar Total Score: 9 [facility] Progress Note (SOAP) Subjective: doing well with librium detox regimen resting on bed comfortably tolerate fluid and food well no vomiting no epigastric pain Objective: 04/24/19 09:06 Vital Signs Temperature 97.9 F 04/24/19 07:19 Pulse Rate 63 04/24/19 07:19 Respiratory Rate 18 04/24/19 07:19 Blood Pressure 123/71 04/24/19 07:19 O2 Sat by Pulse Oximetry (%) Laboratory Last Values WBC 5.0 K/mm3 (4.0-10.0) 04/21/19 08:30 RBC 4.18 M/mm3 (3.60-5.2) 04/21/19 08:30 Hgb 12.6 GM/dL (10.7-15.3) 04/21/19 08:30 Hct 38.8 % (32.4-45.2) 04/21/19 08:30 MCV 93.0 fl (80-96) 04/21/19 08:30 MCH 30.2 pg (25.7-33.7) 04/21/19 08:30 MCHC 32.5 g/dl (32.0-36.0) 04/21/19 08:30 RDW 14.0 % (11.6-15.6) 04/21/19 08:30 Plt Count 196 K/MM3 (134-434) D 04/21/19 08:30 MPV 8.7 fl (7.5-11.1) 04/21/19 08:30 Sodium 143 mmol/L (136-145) 04/21/19 08:30 Potassium 4.0 mmol/L (3.5-5.1) 04/21/19 08:30 Chloride 112 mmol/L (98-107) H 04/21/19 08:30 Carbon Dioxide 20 mmol/L (21-32) L 04/21/19 08:30 Anion Gap 11 MMOL/L (8-16) 04/21/19 08:30 BUN 16.4 mg/dL (7-18) 04/21/19 08:30 Creatinine 0.7 mg/dL (0.55-1.3) 04/21/19 08:30 Est GFR (CKD-EPI)AfAm 109.91 04/21/19 08:30 Est GFR (CKD-EPI)NonAf 94.84 04/21/19 08:30 Random Glucose 92 mg/dL (74-106) 04/21/19 08:30 Calcium 8.7 mg/dL (8.5-10.1) 04/21/19 08:30 Total Bilirubin 0.5 mg/dL (0.2-1) 04/21/19 08:30 AST 31 U/L (15-37) 04/21/19 08:30 ALT 21 U/L (13-61) 04/21/19 08:30 Alkaline Phosphatase 68 U/L (45-117) 04/21/19 08:30 Total Protein 5.6 g/dl (6.4-8.2) L 04/21/19 08:30 Albumin 3.0 g/dl (3.4-5.0) L 04/21/19 08:30 POC Urine HCG, Qual Negative 04/20/19 18:16 lab noted patient refuses to discuss aftercare with staff Assessment: 04/24/19 09:07 alcohol withdrawal sx alert resting on bed after breakfast Plan: continue librium detox regimen
[2019-04-24] MEDS: PANTOPRAZOLE 40 MG TABLET (FP) PO SCH ×2 (10:04→21:04)
[2019-04-24] MEDS: BUDESONIDE/FORMETEROL FUMARATE 160/4.5 mcg INHALER IH SCH ×2 (10:04→21:04)
[2019-04-24] MEDS: PREGABALIN 100 MG CAPSULE PO SCH ×2 (10:04→21:04)
[2019-04-24] MEDS: PRENATAL VITAMINS W/ FOLIC ACID TABLET (FP) PO SCH (10:04)
[2019-04-24] MEDS: GABAPENTIN 400 MG CAPSULE (FP) PO SCH ×2 (10:04→21:04)
[2019-04-24] MEDS: ALBUTEROL SO4 8 GM HFA INHALER IH PRN ×2 (10:04→18:08)
[2019-04-24] MEDS: TOLNAFTATE 1% CREAM 15 GM TUBE TP SCH ×2 (10:04→21:04)
[2019-04-24] MEDS: PETROLATUM, WHITE 30 GM TUBE TP SCH (10:04)
[2019-04-24] MEDS: NICOTINE 14 MG/24 HOURS TOPICAL PATCH TD SCH (10:07)
[2019-04-24] MEDS: BISMUTH SUBSALICYLATE 524 MG/30 ML UD PO PRN (20:28)
[2019-04-24] MEDS: THIAMINE HCL 100 MG TABLET (FP) PO SCH (21:05)
[2019-04-24] MEDS: MELATONIN 5 MG TABLETS PO PRN (21:05)
[2019-04-25] MEDS: ALBUTEROL SO4 8 GM HFA INHALER IH PRN ×2 (05:21→10:18)
[2019-04-25 09:10] VITALS: BP 155/91; PULSE 82; TEMP 98.2
--- NOTE | 2019-04-25 09:43 | DS ---
[facility] Detox Discharge Summary Admission Date: 04/20/19 Discharge Date: 04/25/19 - History Present History: Alcohol Dependence Additional Comments: 58 years old female multiple patient [facility] admission was admitted on 04/20/19 for alcohol withdrawal sx management did well with librum detox regimen no complication through out the detox stay report GI distress seen by providers no medical intervention observed patient sitting on the edge of the bed eating breakfast no nausea no vomiting no trouble chewing nor swallowing speech clearly alert coherently express sadness that "no place to go" emotional assurance given Pertinent Past History: arthritis gerd nicotine dependent - Physical Exam Results Vital Signs: Vital Signs Temperature 98.2 F 04/25/19 09:09 Pulse Rate 82 04/25/19 09:09 Respiratory Rate 18 04/25/19 09:09 Blood Pressure 155/91 04/25/19 09:09 O2 Sat by Pulse Oximetry (%) Pertinent Admission Physical Exam Findings: alcohol withdrawal sx Laboratory Last Values WBC 5.0 K/mm3 (4.0-10.0) 04/21/19 08:30 RBC 4.18 M/mm3 (3.60-5.2) 04/21/19 08:30 Hgb 12.6 GM/dL (10.7-15.3) 04/21/19 08:30 Hct 38.8 % (32.4-45.2) 04/21/19 08:30 MCV 93.0 fl (80-96) 04/21/19 08:30 MCH 30.2 pg (25.7-33.7) 04/21/19 08:30 MCHC 32.5 g/dl (32.0-36.0) 04/21/19 08:30 RDW 14.0 % (11.6-15.6) 04/21/19 08:30 Plt Count 196 K/MM3 (134-434) D 04/21/19 08:30 MPV 8.7 fl (7.5-11.1) 04/21/19 08:30 Sodium 143 mmol/L (136-145) 04/21/19 08:30 Potassium 4.0 mmol/L (3.5-5.1) 04/21/19 08:30 Chloride 112 mmol/L (98-107) H 04/21/19 08:30 Carbon Dioxide 20 mmol/L (21-32) L 04/21/19 08:30 Anion Gap 11 MMOL/L (8-16) 04/21/19 08:30 BUN 16.4 mg/dL (7-18) 04/21/19 08:30 Creatinine 0.7 mg/dL (0.55-1.3) 04/21/19 08:30 Est GFR (CKD-EPI)AfAm 109.91 04/21/19 08:30 Est GFR (CKD-EPI)NonAf 94.84 04/21/19 08:30 Random Glucose 92 mg/dL (74-106) 04/21/19 08:30 Calcium 8.7 mg/dL (8.5-10.1) 04/21/19 08:30 Total Bilirubin 0.5 mg/dL (0.2-1) 04/21/19 08:30 AST 31 U/L (15-37) 04/21/19 08:30 ALT 21 U/L (13-61) 04/21/19 08:30 Alkaline Phosphatase 68 U/L (45-117) 04/21/19 08:30 Total Protein 5.6 g/dl (6.4-8.2) L 04/21/19 08:30 Albumin 3.0 g/dl (3.4-5.0) L 04/21/19 08:30 POC Urine HCG, Qual Negative 04/20/19 18:16 lab noted alert cardiac S1S2 regular rate rhythm respiratory clear lung bilaterally abdomen soft no rebound tenderness - Treatment Hospital Course: Detox Protocol Followed, Detoxed Safely, Responded well, Discharged Condition Good, Rehab Referral Accepted Patient has Accepted a Rehab Referral to: community support approach - Medication Discharge Medications: Ambulatory Orders Pregabalin [Lyrica -] 300 mg PO BID 12/04/16 Aripiprazole [Abilify -] 15 mg PO DAILY@1400 #30 tablet 04/20/18 Citalopram Hydrobromide [Celexa -] 60 mg PO DAILY #90 tablet 04/20/18 Albuterol Sulfate Inhaler - [Ventolin HFA Inhaler -] 2 puff IH Q4H PRN #1 inhaler 02/24/19 Gabapentin [Neurontin -] 400 mg PO BID #60 capsule 02/24/19 Pantoprazole Sodium [Protonix -] 40 mg PO BID #30 tablet.ec 02/24/19 Methocarbamol 1,000 mg PO QID 04/20/19 Budesonide/Formeterol Fumarate [SYMBICORT 160/4.5mcg -] 2 puff IH BID #1 inhaler 04/25/19 - Diagnosis (1) Alcohol dependence with uncomplicated withdrawal Current Visit: Yes Status: Acute (2) GERD (gastroesophageal reflux disease) Current Visit: Yes Status: Chronic Qualifiers: Esophagitis presence: without esophagitis Qualified Code(s): K21.9 - Gastro -esophageal reflux disease without esophagitis (3) Nicotine dependence Current Visit: Yes Status: Acute Qualifiers: Nicotine product type: cigarettes Substance use status: in withdrawal Qualified Code(s): F17.213 - Nicotine dependence, cigarettes, with withdrawal (4) Substance induced mood disorder Current Visit: Yes Status: Suspected (5) Nicotine dependence Current Visit: Yes Status: Acute Qualifiers: Nicotine product type: cigarettes Substance use status: in withdrawal Qualified Code(s): F17.213 - Nicotine dependence, cigarettes, with withdrawal - AMA Did Patient Leave Against Medical Advice: No CIWA Score - CIWA Score Nausea/Vomitin-Mild Nausea/No Vomiting (no vomiting no epigastric pain today ) Muscle Tremors: 1-None Visible, but [place] Anxiety: 2 Agitation: 1-Slight > Activity Paroxysmal Sweats: No Perspiration Orientation: 0-Oriented Tacttile Disturbances: 0-None Auditory Disturbances: 0-None Visual Disturbances: 0-None Headache: 0-None Present CIWA-Ar Total Score: 5
[2019-04-25] MEDS: PREGABALIN 100 MG CAPSULE PO SCH (10:17)
[2019-04-25] MEDS: GABAPENTIN 400 MG CAPSULE (FP) PO SCH (10:17)
[2019-04-25] MEDS: PRENATAL VITAMINS W/ FOLIC ACID TABLET (FP) PO SCH (10:17)
[2019-04-25] MEDS: PANTOPRAZOLE 40 MG TABLET (FP) PO SCH (10:17)
[2019-04-25] MEDS: METHOCARBAMOL 500 MG TABLET PO PRN (10:17)
[2019-04-25] MEDS: NICOTINE 14 MG/24 HOURS TOPICAL PATCH TD SCH (10:18)
[2019-04-25] MEDS: BUDESONIDE/FORMETEROL FUMARATE 160/4.5 mcg INHALER IH SCH (10:18)
[2019-04-25] MEDS: PETROLATUM, WHITE 30 GM TUBE TP SCH (10:18)
[2019-04-25] MEDS: TOLNAFTATE 1% CREAM 15 GM TUBE TP SCH (10:19)
== END 2019-04-25 11:48 | disposition home or self-care (01) | DRG 897 ==
LOC: YASAS 15:04 → Y3N 20:54
PROVIDERS: ADMIT Surgery; ATTEND Surgery
PROC: HZ2ZZZZ Detoxification Services for Substance Abuse Treatment (ICD-10-PCS; principal; 2019-04-20)
DX: F10.230 Alcohol dependence with withdrawal, uncomplicated (principal); F14.20 Cocaine dependence, uncomplicated; F12.20 Cannabis dependence, uncomplicated; F19.24 Other psychoactive substance dependence with psychoactive substance-induced mood disorder; F43.10 Post-traumatic stress disorder, unspecified; B35.3 Tinea pedis; M79.89 Other specified soft tissue disorders; R22.32 Localized swelling, mass and lump, left upper limb; M12.9 Arthropathy, unspecified; R10.13 Epigastric pain; Z86.59 Personal history of other mental and behavioral disorders; Z87.09 Personal history of other diseases of the respiratory system; Z91.19 Patient's noncompliance with other medical treatment and regimen; Z59.0 Homelessness
CPT/HCPCS: 36415; 80053; 81025; 85027

== ENCOUNTER 2019-05-04 13:44 | Inpatient (IN) | payer OTHER | END 2019-05-09 13:07 | disposition other institution (70) | LOC: YASAS 13:44 → Y3N 18:47 ==

== ENCOUNTER 2019-05-09 13:12 | Inpatient (IN) | payer OTHER ==
--- NOTE | 2019-05-09 12:28 | HP ---
DEVIN GOMEZ Rehab Assess/Revision - Admission History Admitted to Rehab from: [facility] Date of Admission to Rehab: 05/09/19 - Findings Detox History & Physical reviewed: Yes Concur with findings: Yes Comments/Additional Findings: transferred from detox to rehab admission as per protocol Inpatient Rehab Admission - Rehab Decision to Admit Inpatient rehab admission?: Yes - Initial Determination Are CD services needed?: Yes Free of communicable disease: Yes Not in need of hospitalization: Yes - Rehab Admission Criteria Previous failed treatment: Yes Poor recovery environment: Yes Comorbidities: Yes Lacks judgement: Yes Patient is meeting Inpatient Rehab admission criteria:: Yes
[~2019-05-09 13:12] MED LIST changes: +ACETAMINOPHEN 325 MG TABLET (FP) PO PRN; -CITALOPRAM HYDROBROMIDE 40 MG TABLET PO SCH; +LOPERAMIDE HCL 2 MG CAPSULE PO PRN; +MAG HYDROX/AL HYDROX/SIMETH 30 ML UNIT-DOSE CUP PO PRN; +MAGNESIUM CITRATE 300 ML BOTTLE PO PRN; +MAGNESIUM HYDROX 2400MG/30ML ORAL SUSPENSION 30 ML CUP PO PRN; +MENTHOL/PHENOL 1 EACH UD MM PRN; +NICOTINE POLACRILEX 2 MG GUM BC PRN; +P-EPHED 60MG/TRIPROLIDI 2.5MG TABLET PO PRN; +guaiFENesin 200 MG/10 ML 10 ML UNIT-DOSE CUPS PO PRN
[2019-05-09] MEDS: ARIPiprazole 15 MG TABLET PO SCH (14:15)
[2019-05-09] MEDS: IBUPROFEN 400 MG TABLET (FP) PO PRN ×2 (14:15→20:16)
[2019-05-09] MEDS: PREGABALIN 100 MG CAPSULE PO SCH (21:42)
[2019-05-09] MEDS: MELATONIN 5 MG TABLETS PO PRN (21:43)
[2019-05-09] MEDS: THIAMINE HCL 100 MG TABLET (FP) PO SCH (21:43)
[2019-05-09] MEDS: PANTOPRAZOLE 40 MG TABLET (FP) PO SCH (21:43)
[2019-05-09] MEDS: BUDESONIDE/FORMETEROL FUMARATE 160/4.5 mcg INHALER IH SCH (21:43)
[2019-05-10] MEDS: NICOTINE 14 MG/24 HOURS TOPICAL PATCH TD SCH (09:59)
[2019-05-10] MEDS: BUDESONIDE/FORMETEROL FUMARATE 160/4.5 mcg INHALER IH SCH ×2 (10:00→21:14)
[2019-05-10] MEDS: ALBUTEROL SO4 8 GM HFA INHALER IH PRN ×2 (10:00→21:15)
[2019-05-10] MEDS: PANTOPRAZOLE 40 MG TABLET (FP) PO SCH ×2 (10:01→21:11)
[2019-05-10] MEDS: CITALOPRAM HYDROBROMIDE 20 MG TABLET (FP) PO SCH (10:01)
[2019-05-10] MEDS: PREGABALIN 100 MG CAPSULE PO SCH ×2 (10:01→21:13)
[2019-05-10] MEDS: PRENATAL VITAMINS W/ FOLIC ACID TABLET (FP) PO SCH (10:02)
--- NOTE | 2019-05-10 13:27 | PN ---
[facility] Progress Note Note: This patient is requesting gabapentin in addition to her lyrica. While in the community, this patient was taking lyrica and gabapentin (from 2 different pharmacies and possibly 2 different providers). Verbal report from the nursing staff indicates that her recent fall may have been related to lyrica, however the assessment by the medical provider indicated that she was alert after the fall. The gabapentin was discontinued. 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 At this time, the gabapentin will not be ordered by this provider.
[2019-05-10] MEDS: ARIPiprazole 15 MG TABLET PO SCH (14:20)
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
[2019-05-10] MEDS: THIAMINE HCL 100 MG TABLET (FP) PO SCH (21:11)
[2019-05-10] MEDS: hydrOXYzine PAMOATE 25 MG CAPSULE (FP) PO PRN (21:13)
[2019-05-10] MEDS: MELATONIN 5 MG TABLETS PO PRN (21:14)
[2019-05-11] MEDS: ARIPiprazole 15 MG TABLET PO SCH (09:59)
[2019-05-11] MEDS: CITALOPRAM HYDROBROMIDE 20 MG TABLET (FP) PO SCH (09:59)
[2019-05-11] MEDS: PRENATAL VITAMINS W/ FOLIC ACID TABLET (FP) PO SCH (10:00)
[2019-05-11] MEDS: PREGABALIN 100 MG CAPSULE PO SCH ×2 (10:00→21:53)
[2019-05-11] MEDS: NICOTINE 14 MG/24 HOURS TOPICAL PATCH TD SCH (10:00)
[2019-05-11] MEDS: PANTOPRAZOLE 40 MG TABLET (FP) PO SCH ×2 (10:01→21:52)
[2019-05-11] MEDS: BUDESONIDE/FORMETEROL FUMARATE 160/4.5 mcg INHALER IH SCH ×2 (10:01→21:52)
[2019-05-11] MEDS: ALBUTEROL SO4 8 GM HFA INHALER IH PRN ×2 (10:01→15:18)
[2019-05-11] MEDS: hydrOXYzine PAMOATE 25 MG CAPSULE (FP) PO PRN (19:29)
[2019-05-11] MEDS: THIAMINE HCL 100 MG TABLET (FP) PO SCH (21:52)
[2019-05-11] MEDS: MELATONIN 5 MG TABLETS PO PRN (21:53)
[2019-05-11] MEDS ORDERED: PT OWN MED DRAWER 7, Y5N ONE (22:01)
[2019-05-12] MEDS: IBUPROFEN 400 MG TABLET (FP) PO PRN (08:44)
[2019-05-12] MEDS ORDERED: PT OWN MED DRAWER 7, Y5N ONE ×3 (08:45→22:53)
[2019-05-12] MEDS: hydrOXYzine PAMOATE 25 MG CAPSULE (FP) PO PRN ×2 (08:46→21:31)
[2019-05-12] MEDS: BUDESONIDE/FORMETEROL FUMARATE 160/4.5 mcg INHALER IH SCH ×2 (09:38→21:32)
[2019-05-12] MEDS: CITALOPRAM HYDROBROMIDE 20 MG TABLET (FP) PO SCH (09:38)
[2019-05-12] MEDS: PANTOPRAZOLE 40 MG TABLET (FP) PO SCH ×2 (09:38→21:30)
[2019-05-12] MEDS: NICOTINE 14 MG/24 HOURS TOPICAL PATCH TD SCH (09:38)
[2019-05-12] MEDS: PRENATAL VITAMINS W/ FOLIC ACID TABLET (FP) PO SCH (09:38)
[2019-05-12] MEDS: ARIPiprazole 15 MG TABLET PO SCH (09:40)
[2019-05-12] MEDS: PREGABALIN 100 MG CAPSULE PO SCH ×2 (09:41→21:33)
--- NOTE | 2019-05-12 09:57 | PN ---
[facility] Progress Note (SOAP) Subjective: Nurse Jodi called marketing underwriter about this patient who she reports fell to the floor and landed with her bottom while in the day room during group meeting. Pt is a 58 y/o female with a hx of alcohol dependence admitted to rehab on after detoxing on . This marketing underwriter Saw pt who stated that while she was trying to sit down on the chair she missed the chair and landed on the floor with her buttocks. Also stated that her left arm hit the chair with no pain or injury. Denied her head reaching the floor. Pt denies pain to left arm but reports pain to lower back stating it's been there because I have scoliosis and surgery(Pt showing surgical scar to provider on lower back as she talks while in exam room). Pt has a cane for ambulation but has refused to use her cane. Pt was spoken to by this marketing underwriter and the nurse Jodi and patient maintains he does not want to use any cane to walk. Objective: 05/12/19 09:54 Vital Signs - 24 hr 05/12/19 05/12/19 05/12/19 03:30 07:38 09:35 Temperature 97.8 F 98.1 F Pulse Rate 58 L 76 Respiratory 18 18 18 Rate Blood Pressure 112/74 116/76 Pt is alert o x 3 but slow to movement Heent:Normocephalic. Eomi, monique,hearing normal Cardiac:s1 s2,rrr Lungs:cta,leonard. Abdomen:soft,+bs,nt,nd Extermities/Skin:No edema,cyonosis or open skin, No abrasions or swelling. 05/12/19 14:25 Assessment: 05/12/19 09:54 Fall s/p detox Plan: Fall risk precaution Lidocaine patch to affected lower back Fall protocol #1 Transfer to [facility] for evaluation per protocol. Spoke to Usha Valles who identified as marine equipment design engineer to Dr. Matute and can take report.
[2019-05-12] MEDS ORDERED: LACTULOSE 20 GM/30 ML UDC (FOR ORAL USE ONLY) PO ONE ×2 (11:00→21:35)
[2019-05-12] MEDS: LIDOCAINE 5% TOPICAL PATCH TP SCH (11:23)
[2019-05-12] MEDS: METHOCARBAMOL 500 MG TABLET PO PRN ×2 (11:27→21:40)
--- NOTE | 2019-05-12 12:24 | PN ---
Psychiatric Progress Note Vital Signs: Vital Signs Period Temp Pulse Resp BP Sys/[place] Pulse Ox Last 24 Hr 97.8 F-98.2 F 58-76 18-20 112-118/62-76 Date of Session: 05/12/19 Chief Complaint:: " I was getting celexa 60mg." HPI: Patient admitted to for alcohol and cocaine dependence. Patient requesting an increase in celexa. ROS: Patient presents as fatigue and somnolent. Current Medications: Active Medications Generic Name Dose Route Start Last Admin Trade Name Freq PRN Reason Stop Dose Admin Al Hydroxide/Mg Hydroxide 30 ml 05/09/19 12:28 Mylanta Oral Suspension - PO Q6H PRN DYSPEPSIA Albuterol Sulfate 2 puff 05/09/19 12:30 05/11/19 15:18 Ventolin Hfa Inhaler - IH 2 puff Q4H PRN Administration ASTHMA Albuterol Sulfate 1 amp 05/11/19 18:24 Ventolin 0.083% Nebulizer Soln - NEB Q4H PRN SHORT OF BREATH/WHEEZING Aripiprazole 15 mg 05/11/19 10:00 05/12/19 09:40 Abilify PO 15 mg DAILY EMILIANO Administration Budesonide/Formoterol Fumarate 2 puff 05/09/19 22:00 05/12/19 09:38 Symbicort 160/4.5mcg - IH 2 puff BID EMILIANO Administration Citalopram Hydrobromide 40 mg 05/10/19 10:00 05/12/19 09:38 Celexa - PO 40 mg DAILY EMILIANO Administration Eucalyptus/Menthol/Phenol/Sorbitol 1 each 05/09/19 12:28 Cepastat Lozenge - MM Q4H PRN SORE THROAT Guaifenesin 10 ml 05/09/19 12:28 Robitussin - PO Q6H PRN COUGH Hydroxyzine Pamoate 25 mg 05/10/19 17:10 05/12/19 08:46 Vistaril - PO 25 mg Q6H PRN Administration ANXIETY Ibuprofen 400 mg 05/09/19 12:28 05/12/19 08:44 Motrin - PO 400 mg Q6H PRN Administration Pain level 4-6 Lidocaine 1 patch 05/12/19 10:30 05/12/19 11:23 Lidoderm Patch - TP 1 patch DAILY EMILIANO Administration Loperamide HCl 4 mg 05/09/19 12:28 Imodium - PO Q6H PRN DIARRHEA Magnesium Citrate 300 ml 05/09/19 12:28 Citroma - PO Q48H PRN CONSTIPATION Magnesium Hydroxide 30 ml 05/09/19 12:28 Milk Of Magnesia - PO DAILY PRN CONSTIPATION Melatonin 5 mg 05/09/19 22:00 05/11/19 21:53 Melatonin PO 5 mg HS PRN Administration INSOMNIA Methocarbamol 500 mg 05/12/19 10:04 05/12/19 11:27 Robaxin - PO 500 mg TID PRN Administration MUSCLE SPASMS Methyl Salicylate 1 applic 05/12/19 22:00 Dell-Garcia - TP HS EMILIANO Miscellaneous 1 each 05/12/19 22:00 Lidoderm Patch Removal MC DAILY@2200 EMILIANO Nicotine 14 mg 05/10/19 10:00 05/12/19 09:38 Nicoderm Patch - TD 14 mg DAILY EMILIANO Administration Nicotine Polacrilex 2 mg 05/09/19 12:28 Nicorette Gum - BC Q2H PRN NICOTINE REPLACEMENT RX Pantoprazole Sodium 40 mg 05/09/19 22:00 05/12/19 09:38 Protonix - PO 40 mg BID EMILIANO Administration Pregabalin 300 mg 05/09/19 22:00 05/12/19 09:41 Lyrica - PO 300 mg BID EMILIANO Administration Multivit/Folic Acid/Iron 1 tab 05/10/19 10:00 05/12/19 09:38 Vitamins (Sjr) - PO 1 tab DAILY EMILIANO Administration Pseudoephedrine/Triprolidine 1 combo 05/09/19 12:28 Actifed - PO TID PRN NASAL CONGESTION Thiamine HCl 100 mg 05/09/19 22:00 05/11/19 21:52 Vitamin B1 - PO 100 mg HS EMILIANO Administration Medication(s) Change(s): No. Current Side Effect: No Lab tests ordered: No Lab tests reviewed: Yes Provider note:: Patient presents as fatigue and sedated. Ship Loader spoke to patient with a nurse present. As per nursing staff patient had a fall this morning. Patient is currently requesting an increase celexa. She is currently prescribed celexa 40mg but reports being prescribed celexa 60mg daily. External records reviewed and noted a 30 day prescription of celexa 60mg daily. Celexa will not be increased due to current fall this morning and current presentation of fatigue and sedation. In addition there is a risk of sedation when accepting celexa. There is also no clinical justification for increase in celexa at this time. Patient's medication compliance before admission to rehab is also questionable. At this time celexa will not not be increased. Total face to face time:: 15 Mental Status Exam - Mental Status Exam Alert and Oriented to: Time, Place, Person Cognitive Function: Good Patient Appearance: Well Groomed Mood: Withdrawn Affect: Mood Congruent Patient Behavior: Sedated, Fatigued Speech Pattern: Delayed Voice Loudness: Moderately Soft/Quiet Thought Process: Goal Oriented Thought Disorder: Not Present Hallucinations: Denies Suicidal Ideation: Denies Homicidal Ideation: Denies Insight/Judgement: Poor Sleep: Fair Appetite: Fair Muscle strength/Tone: Normal Gait/Station: Other (Patient laying in bed.) Psychiatric Treatment Plan - Problem List (1) Nicotine dependence Current Visit: Yes Qualifiers: Nicotine product type: cigarettes Substance use status: in withdrawal Qualified Code(s): F17.213 - Nicotine dependence, cigarettes, with withdrawal (2) Alcohol dependence Current Visit: Yes (3) Cannabis dependence Current Visit: Yes (4) Cocaine dependence Current Visit: Yes Qualifiers: Substance use status: uncomplicated Qualified Code(s): F14.20 - Cocaine dependence, uncomplicated (5) History of bipolar disorder Current Visit: Yes (6) Substance-induced sleep disorder Current Visit: Yes
[2019-05-12] MEDS: MELATONIN 5 MG TABLETS PO PRN (21:30)
[2019-05-12] MEDS: THIAMINE HCL 100 MG TABLET (FP) PO SCH (21:30)
--- NOTE | 2019-05-12 21:41 | PN ---
S Progress Note Note: Patient alert. S/P Recent fall. States no BM x 4 days. States only wants lactulose for BM. States PCP had ordered in past. Abd firm, distended, non-tender, BS+ . Denies N/V. Abd = 42 in Hx: elevated ammonia level in 2018. Will repeat. Plan: Lactulose 20 ml PO now and 20 ml Po daily beginning in a.m.
[2019-05-12] MEDS: METHYL SALICYLATE/MENTHOL OINT 30 GM TUBE TP SCH (22:51)
[2019-05-12] MEDS: LIDOCAINE PATCH REMOVAL MC SCH (22:57)
[2019-05-13] MEDS: hydrOXYzine PAMOATE 25 MG CAPSULE (FP) PO PRN ×2 (09:15→21:54)
[2019-05-13] MEDS: PRENATAL VITAMINS W/ FOLIC ACID TABLET (FP) PO SCH (09:15)
[2019-05-13] MEDS: CITALOPRAM HYDROBROMIDE 20 MG TABLET (FP) PO SCH (09:17)
[2019-05-13] MEDS: PREGABALIN 100 MG CAPSULE PO SCH ×2 (09:17→21:54)
[2019-05-13] MEDS: PANTOPRAZOLE 40 MG TABLET (FP) PO SCH ×2 (09:18→21:54)
[2019-05-13] MEDS: ARIPiprazole 15 MG TABLET PO SCH (09:18)
[2019-05-13] MEDS: LIDOCAINE 5% TOPICAL PATCH TP SCH (09:19)
[2019-05-13] MEDS: NICOTINE 14 MG/24 HOURS TOPICAL PATCH TD SCH (09:19)
[2019-05-13] MEDS: BUDESONIDE/FORMETEROL FUMARATE 160/4.5 mcg INHALER IH SCH ×2 (09:20→23:01)
[2019-05-13] MEDS: ALBUTEROL SO4 8 GM HFA INHALER IH PRN (09:20)
[2019-05-13] MEDS ORDERED: PT OWN MED DRAWER 7, Y5N ONE (21:01)
[2019-05-13] MEDS: THIAMINE HCL 100 MG TABLET (FP) PO SCH (21:54)
[2019-05-13] MEDS: MELATONIN 5 MG TABLETS PO PRN (21:54)
[2019-05-13] MEDS: METHYL SALICYLATE/MENTHOL OINT 30 GM TUBE TP SCH (23:01)
[2019-05-13] MEDS: LIDOCAINE PATCH REMOVAL MC SCH (23:01)
[2019-05-14] MEDS: hydrOXYzine PAMOATE 25 MG CAPSULE (FP) PO PRN ×2 (06:52→13:41)
[2019-05-14] MEDS: ALBUTEROL SO4 0.083% IH SOL 2.5 MG/3 ML VIAL.NEB. NEB PRN (09:18)
[2019-05-14] MEDS ORDERED: PT OWN MED DRAWER 7, Y5N ONE (09:31)
[2019-05-14] MEDS: LIDOCAINE 5% TOPICAL PATCH TP SCH (09:58)
[2019-05-14] MEDS: BUDESONIDE/FORMETEROL FUMARATE 160/4.5 mcg INHALER IH SCH ×2 (09:59→21:37)
[2019-05-14] MEDS: PREGABALIN 100 MG CAPSULE PO SCH ×2 (10:00→21:35)
[2019-05-14] MEDS: PANTOPRAZOLE 40 MG TABLET (FP) PO SCH ×2 (10:00→21:35)
[2019-05-14] MEDS: PRENATAL VITAMINS W/ FOLIC ACID TABLET (FP) PO SCH (10:00)
[2019-05-14] MEDS: ARIPiprazole 15 MG TABLET PO SCH (10:00)
[2019-05-14] MEDS: CITALOPRAM HYDROBROMIDE 20 MG TABLET (FP) PO SCH (10:00)
[2019-05-14] MEDS: NICOTINE 14 MG/24 HOURS TOPICAL PATCH TD SCH (10:00)
[2019-05-14] MEDS: METHOCARBAMOL 500 MG TABLET PO PRN ×2 (11:35→21:36)
[2019-05-14] MEDS: IBUPROFEN 400 MG TABLET (FP) PO PRN (11:37)
[2019-05-14] MEDS: MELATONIN 5 MG TABLETS PO PRN (21:36)
[2019-05-14] MEDS: LIDOCAINE PATCH REMOVAL MC SCH (21:37)
[2019-05-14] MEDS: METHYL SALICYLATE/MENTHOL OINT 30 GM TUBE TP SCH (21:37)
[2019-05-14] MEDS: THIAMINE HCL 100 MG TABLET (FP) PO SCH (21:37)
[2019-05-15] MEDS: hydrOXYzine PAMOATE 25 MG CAPSULE (FP) PO PRN ×3 (06:32→21:51)
[2019-05-15] MEDS: BUDESONIDE/FORMETEROL FUMARATE 160/4.5 mcg INHALER IH SCH ×2 (09:58→22:13)
[2019-05-15] MEDS: LIDOCAINE 5% TOPICAL PATCH TP SCH (09:58)
[2019-05-15] MEDS: CITALOPRAM HYDROBROMIDE 20 MG TABLET (FP) PO SCH (09:59)
[2019-05-15] MEDS: ARIPiprazole 15 MG TABLET PO SCH (09:59)
[2019-05-15] MEDS: PREGABALIN 100 MG CAPSULE PO SCH (09:59)
[2019-05-15] MEDS: NICOTINE 14 MG/24 HOURS TOPICAL PATCH TD SCH (10:00)
[2019-05-15] MEDS: PRENATAL VITAMINS W/ FOLIC ACID TABLET (FP) PO SCH (10:00)
[2019-05-15] MEDS: PANTOPRAZOLE 40 MG TABLET (FP) PO SCH ×2 (10:01→21:51)
[2019-05-15] MEDS: ALBUTEROL SO4 0.083% IH SOL 2.5 MG/3 ML VIAL.NEB. NEB PRN ×2 (10:02→17:50)
[2019-05-15] MEDS: METHOCARBAMOL 500 MG TABLET PO PRN ×2 (10:21→21:51)
--- NOTE | 2019-05-15 11:50 | PN ---
[facility] Progress Note Note: Ammonia level 49. Lactulose 20gm ordered po bid and repeat level ordered for . Vital Signs Temperature 98.4 F 05/15/19 06:50 Pulse Rate 60 05/15/19 06:50 Respiratory Rate 16 05/15/19 06:50 Blood Pressure 107/70 05/15/19 06:50 O2 Sat by Pulse Oximetry (%)
[2019-05-15] MEDS: MELATONIN 5 MG TABLETS PO PRN (21:51)
[2019-05-15] MEDS: THIAMINE HCL 100 MG TABLET (FP) PO SCH (21:51)
[2019-05-15] MEDS: LIDOCAINE PATCH REMOVAL MC SCH (21:52)
[2019-05-15] MEDS: LACTULOSE 20 GM/30 ML UDC (FOR ORAL USE ONLY) PO SCH (21:55)
[2019-05-15] MEDS: METHYL SALICYLATE/MENTHOL OINT 30 GM TUBE TP SCH (21:55)
[2019-05-15] MEDS ORDERED: PT OWN MED DRAWER 7, Y5N ONE (23:13)
[2019-05-16] MEDS: hydrOXYzine PAMOATE 25 MG CAPSULE (FP) PO PRN ×2 (06:46→11:45)
[2019-05-16] MEDS ORDERED: PT OWN MED DRAWER 7, Y5N ONE ×2 (09:03→22:11)
[2019-05-16] MEDS: ARIPiprazole 15 MG TABLET PO SCH (10:09)
[2019-05-16] MEDS: PANTOPRAZOLE 40 MG TABLET (FP) PO SCH ×2 (10:09→21:42)
[2019-05-16] MEDS: CITALOPRAM HYDROBROMIDE 20 MG TABLET (FP) PO SCH (10:09)
[2019-05-16] MEDS: PRENATAL VITAMINS W/ FOLIC ACID TABLET (FP) PO SCH (10:09)
[2019-05-16] MEDS: LIDOCAINE 5% TOPICAL PATCH TP SCH (10:10)
[2019-05-16] MEDS: NICOTINE 14 MG/24 HOURS TOPICAL PATCH TD SCH (10:10)
[2019-05-16] MEDS: LACTULOSE 20 GM/30 ML UDC (FOR ORAL USE ONLY) PO SCH ×2 (10:10→21:42)
[2019-05-16] MEDS: BUDESONIDE/FORMETEROL FUMARATE 160/4.5 mcg INHALER IH SCH ×2 (10:11→21:49)
[2019-05-16] MEDS: ALBUTEROL SO4 8 GM HFA INHALER IH PRN (10:13)
[2019-05-16] MEDS ORDERED: NAPROXEN 500 MG TABLET (FP) PO PRN (10:27)
[2019-05-16] MEDS ORDERED: IBUPROFEN 600 MG TABLET (FP) PO PRN (10:33)
[2019-05-16] MEDS ORDERED: BISMUTH SUBSALICYLATE 262 MG/15 ML BTL PO ONE (12:41)
[2019-05-16] MEDS: METHOCARBAMOL 500 MG TABLET PO SCH ×3 (13:01→21:43)
[2019-05-16] MEDS: GABAPENTIN 300 MG CAPSULE (FP) PO SCH ×2 (13:01→21:42)
[2019-05-16] MEDS: ALBUTEROL SO4 2.5/IPRATROPIUM 0.5 INH SOL 3 ML VIAL.NEB. NEB SCH ×2 (13:46→21:47)
[2019-05-16] MEDS: MELATONIN 5 MG TABLETS PO PRN (21:43)
[2019-05-16] MEDS: THIAMINE HCL 100 MG TABLET (FP) PO SCH (21:43)
[2019-05-16] MEDS: COLLOIDAL OATMEAL 1 BAR EACH TP PRN (21:45)
[2019-05-16] MEDS: LIDOCAINE PATCH REMOVAL MC SCH (21:47)
[2019-05-16] MEDS: METHYL SALICYLATE/MENTHOL OINT 30 GM TUBE TP SCH (21:47)
[2019-05-17] MEDS: GABAPENTIN 300 MG CAPSULE (FP) PO SCH ×3 (06:46→21:53)
[2019-05-17] MEDS: ALBUTEROL SO4 2.5/IPRATROPIUM 0.5 INH SOL 3 ML VIAL.NEB. NEB SCH ×3 (08:05→21:53)
[2019-05-17] MEDS ORDERED: PT OWN MED DRAWER 7, Y5N ONE ×3 (08:39→22:16)
[2019-05-17] MEDS: ARIPiprazole 15 MG TABLET PO SCH (09:18)
[2019-05-17] MEDS: CITALOPRAM HYDROBROMIDE 20 MG TABLET (FP) PO SCH (09:18)
[2019-05-17] MEDS: PANTOPRAZOLE 40 MG TABLET (FP) PO SCH ×2 (09:19→21:53)
[2019-05-17] MEDS: METHOCARBAMOL 500 MG TABLET PO SCH ×4 (09:19→21:53)
[2019-05-17] MEDS: NICOTINE 14 MG/24 HOURS TOPICAL PATCH TD SCH (09:20)
[2019-05-17] MEDS: LIDOCAINE 5% TOPICAL PATCH TP SCH (09:20)
[2019-05-17] MEDS: BUDESONIDE/FORMETEROL FUMARATE 160/4.5 mcg INHALER IH SCH ×2 (09:20→21:53)
[2019-05-17] MEDS: PRENATAL VITAMINS W/ FOLIC ACID TABLET (FP) PO SCH (09:21)
[2019-05-17] MEDS: ALBUTEROL SO4 8 GM HFA INHALER IH PRN (09:21)
--- NOTE | 2019-05-17 10:42 | EKG ---
Test Reason : Blood Pressure : / mmHG Vent. Rate : 069 BPM Atrial Rate : 069 BPM P-R Int : 132 ms QRS Dur : 084 ms QT Int : 532 ms P-R-T Axes : 065 032 043 degrees QTc Int : 570 ms POOR DATA QUALITY, INTERPRETATION MAY BE ADVERSELY AFFECTED NORMAL SINUS RHYTHM POSSIBLE LEFT ATRIAL ENLARGEMENT PROLONGED QT ABNORMAL ECG WHEN COMPARED WITH ECG OF 08-MAY-2019 18:03, QT HAS LENGTHENED Confirmed by BE GOMEZ, CARLOTA ([id number]) on 05/17/2019 10:42:10 AM Referred By: Confirmed By:CARLOTA LR MD
[2019-05-17] MEDS: hydrOXYzine PAMOATE 25 MG CAPSULE (FP) PO PRN (18:04)
[2019-05-17] MEDS: METHYL SALICYLATE/MENTHOL OINT 30 GM TUBE TP SCH (21:52)
[2019-05-17] MEDS: LIDOCAINE PATCH REMOVAL MC SCH (21:53)
[2019-05-17] MEDS: THIAMINE HCL 100 MG TABLET (FP) PO SCH (21:54)
[2019-05-18] MEDS: GABAPENTIN 300 MG CAPSULE (FP) PO SCH ×3 (06:49→21:44)
[2019-05-18] MEDS: ALBUTEROL SO4 2.5/IPRATROPIUM 0.5 INH SOL 3 ML VIAL.NEB. NEB SCH ×2 (07:52→21:45)
[2019-05-18] MEDS: BUDESONIDE/FORMETEROL FUMARATE 160/4.5 mcg INHALER IH SCH ×2 (09:46→21:44)
[2019-05-18] MEDS: NICOTINE 14 MG/24 HOURS TOPICAL PATCH TD SCH (09:47)
[2019-05-18] MEDS: METHOCARBAMOL 500 MG TABLET PO SCH ×4 (09:47→21:44)
[2019-05-18] MEDS: PRENATAL VITAMINS W/ FOLIC ACID TABLET (FP) PO SCH (09:47)
[2019-05-18] MEDS: ARIPiprazole 15 MG TABLET PO SCH (09:47)
[2019-05-18] MEDS: PANTOPRAZOLE 40 MG TABLET (FP) PO SCH ×2 (09:47→21:44)
[2019-05-18] MEDS: ALBUTEROL SO4 8 GM HFA INHALER IH PRN (09:48)
[2019-05-18] MEDS: hydrOXYzine PAMOATE 25 MG CAPSULE (FP) PO PRN (09:48)
[2019-05-18] MEDS: CITALOPRAM HYDROBROMIDE 20 MG TABLET (FP) PO SCH (09:48)
[2019-05-18] MEDS: LIDOCAINE 5% TOPICAL PATCH TP SCH (09:49)
[2019-05-18] MEDS: THIAMINE HCL 100 MG TABLET (FP) PO SCH (21:44)
[2019-05-18] MEDS: METHYL SALICYLATE/MENTHOL OINT 30 GM TUBE TP SCH (21:45)
[2019-05-18] MEDS: LIDOCAINE PATCH REMOVAL MC SCH (21:45)
[2019-05-19] MEDS: GABAPENTIN 300 MG CAPSULE (FP) PO SCH ×3 (06:24→21:19)
[2019-05-19] MEDS: ALBUTEROL SO4 2.5/IPRATROPIUM 0.5 INH SOL 3 ML VIAL.NEB. NEB SCH ×3 (08:20→20:35)
[2019-05-19] MEDS ORDERED: PT OWN MED DRAWER 7, Y5N ONE (08:35)
[2019-05-19] MEDS: PRENATAL VITAMINS W/ FOLIC ACID TABLET (FP) PO SCH (10:19)
[2019-05-19] MEDS: CITALOPRAM HYDROBROMIDE 20 MG TABLET (FP) PO SCH (10:19)
[2019-05-19] MEDS: PANTOPRAZOLE 40 MG TABLET (FP) PO SCH ×2 (10:19→21:19)
[2019-05-19] MEDS: METHOCARBAMOL 500 MG TABLET PO SCH ×4 (10:19→21:19)
[2019-05-19] MEDS: LIDOCAINE 5% TOPICAL PATCH TP SCH (10:20)
[2019-05-19] MEDS: BUDESONIDE/FORMETEROL FUMARATE 160/4.5 mcg INHALER IH SCH ×2 (10:20→21:20)
[2019-05-19] MEDS: hydrOXYzine PAMOATE 25 MG CAPSULE (FP) PO PRN ×2 (10:21→17:03)
[2019-05-19] MEDS: NICOTINE 14 MG/24 HOURS TOPICAL PATCH TD SCH (10:24)
[2019-05-19] MEDS: ARIPiprazole 15 MG TABLET PO SCH (10:24)
--- NOTE | 2019-05-19 12:44 | PN ---
Psychiatric Progress Note Vital Signs: Vital Signs Period Temp Pulse Resp BP Sys/[place] Pulse Ox Last 24 Hr 98.0 F 57 18-18 111/71 Date of Session: 05/19/19 Chief Complaint:: " I have anxiety." HPI: Patient admitted to for alcohol and cocaine dependence. Patient reports anxiety. ROS: Patient is coheret, alert and oriented X3. Current Medications: Active Medications Generic Name Dose Route Start Last Admin Trade Name Freq PRN Reason Stop Dose Admin Acetaminophen 325 mg 05/16/19 12:08 Tylenol - PO Q4H PRN PAIN LEVEL 4 - 6 Al Hydroxide/Mg Hydroxide 30 ml 05/09/19 12:28 Mylanta Oral Suspension - PO Q6H PRN DYSPEPSIA Albuterol Sulfate 2 puff 05/09/19 12:30 05/18/19 09:48 Ventolin Hfa Inhaler - IH 2 puff Q4H PRN Administration ASTHMA Albuterol Sulfate 1 amp 05/11/19 18:24 05/15/19 17:50 Ventolin 0.083% Nebulizer Soln - NEB 1 amp Q4H PRN Administration SHORT OF BREATH/WHEEZING Albuterol/Ipratropium 1 amp 05/16/19 14:00 05/19/19 08:20 Duoneb - NEB Not Given RTID EMILIANO Aripiprazole 15 mg 05/11/19 10:00 05/19/19 10:24 Abilify PO 15 mg DAILY EMILIANO Administration Budesonide/Formoterol Fumarate 2 puff 05/09/19 22:00 05/19/19 10:20 Symbicort 160/4.5mcg - IH Not Given BID EMILIANO Citalopram Hydrobromide 40 mg 05/10/19 10:00 05/19/19 10:19 Celexa - PO 40 mg DAILY EMILIANO Administration Colloidal Oatmeal 1 applic 05/16/19 08:09 05/16/19 21:45 Aveeno Soap - TP 1 applic DAILY PRN Administration HYGEINE Eucalyptus/Menthol/Phenol/Sorbitol 1 each 05/09/19 12:28 Cepastat Lozenge - MM Q4H PRN SORE THROAT Gabapentin 300 mg 05/16/19 14:00 05/19/19 06:24 Neurontin - PO 300 mg TID EMILIANO Administration Guaifenesin 10 ml 05/09/19 12:28 Robitussin - PO Q6H PRN COUGH Hydroxyzine Pamoate 25 mg 05/10/19 17:10 05/19/19 10:21 Vistaril - PO 25 mg Q6H PRN Administration ANXIETY Lidocaine 1 patch 05/12/19 10:30 05/19/19 10:20 Lidoderm Patch - TP 1 patch DAILY EMILIANO Administration Loperamide HCl 4 mg 05/09/19 12:28 Imodium - PO Q6H PRN DIARRHEA Magnesium Citrate 300 ml 05/09/19 12:28 Citroma - PO Q48H PRN CONSTIPATION Magnesium Hydroxide 30 ml 05/09/19 12:28 Milk Of Magnesia - PO DAILY PRN CONSTIPATION Melatonin 10 mg 05/16/19 10:20 05/16/19 21:43 Melatonin PO 10 mg HS PRN Administration INSOMNIA Methocarbamol 500 mg 05/16/19 14:00 05/19/19 10:19 Robaxin - PO 500 mg QID EMILIANO Administration Methyl Salicylate 1 applic 05/12/19 22:00 05/18/19 21:45 Dell-Garcia - TP Not Given HS EMILIANO Miscellaneous 1 each 05/12/19 22:00 05/18/19 21:45 Lidoderm Patch Removal MC 1 each DAILY@2200 EMILIANO Administration Nicotine 14 mg 05/10/19 10:00 05/19/19 10:24 Nicoderm Patch - TD Not Given DAILY EMILIANO Nicotine Polacrilex 2 mg 05/09/19 12:28 Nicorette Gum - BC Q2H PRN NICOTINE REPLACEMENT RX Pantoprazole Sodium 40 mg 05/09/19 22:00 05/19/19 10:19 Protonix - PO 40 mg BID EMILIANO Administration Multivit/Folic Acid/Iron 1 tab 05/10/19 10:00 05/19/19 10:19 Vitamins (Sjr) - PO 1 tab DAILY EMILIANO Administration Pseudoephedrine/Triprolidine 1 combo 05/09/19 12:28 Actifed - PO TID PRN NASAL CONGESTION Thiamine HCl 100 mg 05/09/19 22:00 05/18/19 21:44 Vitamin B1 - PO 100 mg HS EMILIANO Administration Medication(s) Change(s): Yes. Current Side Effect: No Lab tests ordered: No Lab tests reviewed: Yes Provider note:: Patient reports ongoing anxiety. Patient requesting an increase in her celexa and anti- anxiety medications. Medications and EKG reviewed. Patient noted to have to have a prolong QT on 05/19/19 QT/Qtc 532/570. EKG repeated on 05/19/19 which continued to show a Prolong QT. QT/QTc 506/522. [facility] ordered EKG this morning. Results are as followd. QT/Qtc 424/426. Patient is currently prescribed celexa 40mg. Will continue current dose. As per external records patient is prescribed celexa 60mg daily. Patient informed that celexa 40mg will not be increased due to her history of prolong QT. Patient also made aware of the risk of abnormal heart activity when accepting more then 40mg of celexa daily. Patient encouraged to speak to her outside provider about possibly switching over to another anti-depressant. Patient's anxiety will continue to be addressed with vistaril 25mg. Will discontinue vistaril 25mg q6h and will order vistaril 25mg q4h. Patient also educated on the importance of utilizing her coping mechanism to better manage her anxiety. Dosage of vistaril will not be increased as patient has refused to utilize her cane on the unit. Benefits and side effects discussed. Patient satisified and receptive to feedback. Verbal consent given. Total face to face time:: 30 Mental Status Exam - Mental Status Exam Alert and Oriented to: Time, Place, Person Cognitive Function: Good Patient Appearance: Well Groomed Mood: Euthymic Affect: Mood Congruent Patient Behavior: Cooperative Speech Pattern: Appropriate Voice Loudness: Normal Thought Process: Goal Oriented Thought Disorder: Not Present Hallucinations: Denies Suicidal Ideation: Denies Homicidal Ideation: Denies Insight/Judgement: Poor Sleep: Fair Appetite: Fair Muscle strength/Tone: Normal Gait/Station: Normal Psychiatric Treatment Plan - Problem List (1) Nicotine dependence Current Visit: Yes Qualifiers: Nicotine product type: cigarettes Substance use status: in withdrawal Qualified Code(s): F17.213 - Nicotine dependence, cigarettes, with withdrawal (2) Alcohol dependence Current Visit: Yes (3) Cannabis dependence Current Visit: Yes (4) Cocaine dependence Current Visit: Yes Qualifiers: Substance use status: uncomplicated Qualified Code(s): F14.20 - Cocaine dependence, uncomplicated (5) History of bipolar disorder Current Visit: Yes (6) Substance-induced sleep disorder Current Visit: Yes
--- NOTE | 2019-05-19 13:57 | EKG ---
Test Reason : Blood Pressure : / mmHG Vent. Rate : 061 BPM Atrial Rate : 061 BPM P-R Int : 136 ms QRS Dur : 084 ms QT Int : 424 ms P-R-T Axes : 070 044 054 degrees QTc Int : 426 ms NORMAL SINUS RHYTHM LEFT ATRIAL ABNORMALITY POSSIBLE RIGHT ATRIAL ENLARGEMENT WHEN COMPARED WITH ECG OF 17-MAY-2019 07:37, QT HAS SHORTENED Confirmed by GEOFF GOMEZ, ANDRE ([id number]) on 05/19/2019 1:57:01 PM Referred By: LIOS [email or web address] Confirmed By:ANDRE TELLEZ MD
[2019-05-19 14:53] LABS: PH,URINE 5.5 (5.0-8.0); URINE APPEARANCE CLEAR; URINE BILIRUBIN NEGATIVE (NEGATIVE); URINE COLOR YELLOW; URINE GLUCOSE (UA) NEGATIVE (NEGATIVE); URINE KETONE NEGATIVE (NEGATIVE); URINE LEUK ESTERASE NEGATIVE (NEGATIVE); URINE NITRITE NEGATIVE (NEGATIVE); URINE PROTEIN NEGATIVE (NEGATIVE); URINE UROBILINOGEN 0.2 mg/dL (0.2-1.0)
[2019-05-19] MEDS: LIDOCAINE PATCH REMOVAL MC SCH (21:20)
[2019-05-19] MEDS: THIAMINE HCL 100 MG TABLET (FP) PO SCH (21:20)
[2019-05-19] MEDS: MELATONIN 5 MG TABLETS PO PRN (21:21)
[2019-05-19] MEDS: METHYL SALICYLATE/MENTHOL OINT 30 GM TUBE TP SCH (21:35)
[2019-05-20] MEDS: GABAPENTIN 300 MG CAPSULE (FP) PO SCH ×3 (06:58→22:30)
[2019-05-20] MEDS: ALBUTEROL SO4 2.5/IPRATROPIUM 0.5 INH SOL 3 ML VIAL.NEB. NEB SCH ×4 (08:50→22:34)
[2019-05-20] MEDS: BUDESONIDE/FORMETEROL FUMARATE 160/4.5 mcg INHALER IH SCH ×2 (09:39→22:31)
[2019-05-20] MEDS: LIDOCAINE 5% TOPICAL PATCH TP SCH (09:39)
[2019-05-20] MEDS: METHOCARBAMOL 500 MG TABLET PO SCH ×4 (09:40→22:37)
[2019-05-20] MEDS: PANTOPRAZOLE 40 MG TABLET (FP) PO SCH ×2 (09:40→22:30)
[2019-05-20] MEDS: ARIPiprazole 15 MG TABLET PO SCH (09:41)
[2019-05-20] MEDS: NICOTINE 14 MG/24 HOURS TOPICAL PATCH TD SCH (09:41)
[2019-05-20] MEDS: PRENATAL VITAMINS W/ FOLIC ACID TABLET (FP) PO SCH (09:41)
[2019-05-20] MEDS: CITALOPRAM HYDROBROMIDE 20 MG TABLET (FP) PO SCH (09:41)
[2019-05-20] MEDS: hydrOXYzine PAMOATE 25 MG CAPSULE (FP) PO PRN ×3 (09:42→22:43)
[2019-05-20] MEDS: HYDROCORTISONE 2.5% TOPICAL CREAM 30 GM TUBE PR SCH (14:13)
[2019-05-20] MEDS: ACETAMINOPHEN 325 MG TABLET (FP) PO PRN (14:39)
[2019-05-20] MEDS ORDERED: PT OWN MED DRAWER 7, Y5N ONE ×2 (19:38→23:20)
[2019-05-20] MEDS: THIAMINE HCL 100 MG TABLET (FP) PO SCH (22:30)
[2019-05-20] MEDS: METHYL SALICYLATE/MENTHOL OINT 30 GM TUBE TP SCH (22:33)
[2019-05-20] MEDS: LIDOCAINE PATCH REMOVAL MC SCH (22:34)
[2019-05-20] MEDS: MELATONIN 5 MG TABLETS PO PRN (22:55)
[2019-05-21] MEDS: ACETAMINOPHEN 325 MG TABLET (FP) PO PRN ×3 (04:56→18:40)
[2019-05-21] MEDS: GABAPENTIN 300 MG CAPSULE (FP) PO SCH ×3 (06:47→21:24)
[2019-05-21] MEDS: ALBUTEROL SO4 2.5/IPRATROPIUM 0.5 INH SOL 3 ML VIAL.NEB. NEB SCH ×3 (08:40→21:26)
[2019-05-21] MEDS: LIDOCAINE 5% TOPICAL PATCH TP SCH (09:22)
[2019-05-21] MEDS: BUDESONIDE/FORMETEROL FUMARATE 160/4.5 mcg INHALER IH SCH ×2 (09:23→21:30)
[2019-05-21] MEDS: HYDROCORTISONE 2.5% TOPICAL CREAM 30 GM TUBE PR SCH (09:23)
[2019-05-21] MEDS: PANTOPRAZOLE 40 MG TABLET (FP) PO SCH ×2 (09:24→21:24)
[2019-05-21] MEDS: NICOTINE 14 MG/24 HOURS TOPICAL PATCH TD SCH (09:24)
[2019-05-21] MEDS: ARIPiprazole 15 MG TABLET PO SCH (09:24)
[2019-05-21] MEDS: PRENATAL VITAMINS W/ FOLIC ACID TABLET (FP) PO SCH (09:24)
[2019-05-21] MEDS: CITALOPRAM HYDROBROMIDE 20 MG TABLET (FP) PO SCH (09:24)
[2019-05-21] MEDS: METHOCARBAMOL 500 MG TABLET PO SCH ×4 (09:24→21:24)
[2019-05-21] MEDS: hydrOXYzine PAMOATE 25 MG CAPSULE (FP) PO PRN ×2 (09:26→21:28)
[2019-05-21] MEDS: COLLOIDAL OATMEAL 1 BAR EACH TP PRN (17:28)
[2019-05-21] MEDS: THIAMINE HCL 100 MG TABLET (FP) PO SCH (21:24)
[2019-05-21] MEDS: MELATONIN 5 MG TABLETS PO PRN (21:25)
[2019-05-21] MEDS: LIDOCAINE PATCH REMOVAL MC SCH (21:27)
[2019-05-21] MEDS: METHYL SALICYLATE/MENTHOL OINT 30 GM TUBE TP SCH (21:27)
[2019-05-22] MEDS: GABAPENTIN 300 MG CAPSULE (FP) PO SCH ×3 (07:42→21:08)
[2019-05-22] MEDS ORDERED: ALBUTEROL SO4 2.5/IPRATROPIUM 0.5 INH SOL 3 ML VIAL.NEB. NEB PRN (08:23)
[2019-05-22] MEDS: ALBUTEROL SO4 2.5/IPRATROPIUM 0.5 INH SOL 3 ML VIAL.NEB. NEB SCH (09:18)
[2019-05-22] MEDS: ARIPiprazole 15 MG TABLET PO SCH (09:38)
[2019-05-22] MEDS: HYDROCORTISONE 2.5% TOPICAL CREAM 30 GM TUBE PR SCH (09:38)
[2019-05-22] MEDS: PANTOPRAZOLE 40 MG TABLET (FP) PO SCH ×2 (09:39→21:08)
[2019-05-22] MEDS: PRENATAL VITAMINS W/ FOLIC ACID TABLET (FP) PO SCH (09:39)
[2019-05-22] MEDS: METHOCARBAMOL 500 MG TABLET PO SCH ×4 (09:39→21:08)
[2019-05-22] MEDS: LIDOCAINE 5% TOPICAL PATCH TP SCH (09:39)
[2019-05-22] MEDS: NICOTINE 14 MG/24 HOURS TOPICAL PATCH TD SCH (09:39)
[2019-05-22] MEDS: ALBUTEROL SO4 8 GM HFA INHALER IH PRN (09:40)
[2019-05-22] MEDS: BUDESONIDE/FORMETEROL FUMARATE 160/4.5 mcg INHALER IH SCH ×2 (09:40→21:09)
[2019-05-22] MEDS: CITALOPRAM HYDROBROMIDE 20 MG TABLET (FP) PO SCH (09:40)
--- NOTE | 2019-05-22 11:27 | PN ---
[facility] Progress Note Note: Patient is scheduled for discharge tomorrow. Scripts for 30 days supply of medications(Celexa 40 mg/day, Abilify 15 mg/day) will be electronically transmitted to [facility] at [address] [place] [id number]
[2019-05-22] MEDS: hydrOXYzine PAMOATE 25 MG CAPSULE (FP) PO PRN ×2 (13:50→21:36)
[2019-05-22] MEDS: THIAMINE HCL 100 MG TABLET (FP) PO SCH (21:08)
[2019-05-22] MEDS: LIDOCAINE PATCH REMOVAL MC SCH (21:09)
[2019-05-22] MEDS: METHYL SALICYLATE/MENTHOL OINT 30 GM TUBE TP SCH (21:09)
[2019-05-23] MEDS: GABAPENTIN 300 MG CAPSULE (FP) PO SCH (06:33)
[2019-05-23 07:03] VITALS: BP 116/58; PULSE 67; TEMP 98.9
== END 2019-05-23 08:58 | disposition home or self-care (01) | DRG 895 ==
LOC: YASAS 13:12 → Y3E 13:14
PROVIDERS: ADMIT Neuromusculoskeletal Medicine & OMM; ATTEND Neuromusculoskeletal Medicine & OMM
PROC: HZ42ZZZ Group Counseling for Substance Abuse Treatment, Cognitive-Behavioral (ICD-10-PCS; principal; 2019-05-09)
DX: F10.20 Alcohol dependence, uncomplicated (principal); F14.20 Cocaine dependence, uncomplicated; F19.282 Other psychoactive substance dependence with psychoactive substance-induced sleep disorder; F12.20 Cannabis dependence, uncomplicated; F17.213 Nicotine dependence, cigarettes, with withdrawal; E11.9 Type 2 diabetes mellitus without complications; K21.9 Gastro-esophageal reflux disease without esophagitis; J45.909 Unspecified asthma, uncomplicated; G62.9 Polyneuropathy, unspecified; M19.90 Unspecified osteoarthritis, unspecified site; K58.9 Irritable bowel syndrome, unspecified; Z90.710 Acquired absence of both cervix and uterus; Z96.653 Presence of artificial knee joint, bilateral
CPT/HCPCS: 81003; 82140; 93005; 93010; 94640

== ENCOUNTER 2020-12-28 11:22 | Inpatient (IN) | payer OTHER ==
[2020-12-28 12:11] VITALS: BMI 27.1
[2020-12-28] MEDS ORDERED: IBUPROFEN 400 MG TABLET (FP) PO PRN (13:39)
[2020-12-28] MEDS ORDERED: MAG HYDROX/AL HYDROX/SIMETH 30 ML UNIT-DOSE CUP PO PRN (13:39)
[2020-12-28] MEDS ORDERED: chlordiazePOXIDE HCL 25 MG CAPSULE PO PRN (13:39)
[2020-12-28] MEDS ORDERED: MAGNESIUM CITRATE 300 ML BOTTLE PO PRN (13:39)
[2020-12-28] MEDS ORDERED: MENTHOL/PHENOL 1 EACH UD MM PRN (13:39)
[2020-12-28] MEDS ORDERED: ACETAMINOPHEN 325 MG TABLET (FP) PO PRN ×2 (13:39)
[2020-12-28] MEDS ORDERED: NICOTINE POLACRILEX 2 MG GUM BUC PRN (13:39)
[2020-12-28] MEDS ORDERED: METHOCARBAMOL 500 MG TABLET PO PRN (13:39)
[2020-12-28] MEDS ORDERED: ONDANSETRON *ODT* 4 MG TABLET SL PRN (13:39)
[2020-12-28] MEDS ORDERED: MAGNESIUM HYDROX 2400MG/30ML ORAL SUSPENSION 30 ML CUP PO PRN (13:39)
[2020-12-28] MEDS ORDERED: BISMUTH SUBSALICYLATE 524 MG/30 ML UD PO PRN (13:39)
[2020-12-28] MEDS: BUDESONIDE/FORMETEROL FUMARATE 160/4.5 mcg INHALER IH SCH ×2 (16:04→23:23)
[2020-12-28] MEDS: NICOTINE 21 MG/24 HOURS TOPICAL PATCH TD SCH (16:05)
[2020-12-28] MEDS: hydrOXYzine PAMOATE 25 MG CAPSULE (FP) PO SCH ×3 (16:05→23:23)
[2020-12-28] MEDS: ALBUTEROL SO4 HFA INHALER IH PRN (16:27)
[2020-12-28] MEDS: chlordiazePOXIDE HCL 25 MG CAPSULE PO SCH ×2 (18:36→23:23)
[2020-12-28] MEDS: MELATONIN 5 MG TABLETS PO SCH (23:24)
[2020-12-28] MEDS: THIAMINE HCL 100 MG TABLET (FP) PO SCH (23:32)
[2020-12-29] MEDS: hydrOXYzine PAMOATE 25 MG CAPSULE (FP) PO SCH ×5 (07:33→22:29)
[2020-12-29] MEDS: chlordiazePOXIDE HCL 25 MG CAPSULE PO SCH ×4 (07:39→22:30)
[2020-12-29] MEDS: NICOTINE 21 MG/24 HOURS TOPICAL PATCH TD SCH (10:56)
[2020-12-29] MEDS: PRENATAL VITAMINS W/ FOLIC ACID TABLET (FP) PO SCH (10:56)
[2020-12-29] MEDS: BUDESONIDE/FORMETEROL FUMARATE 160/4.5 mcg INHALER IH SCH ×2 (10:57→22:29)
[2020-12-29] MEDS: ALBUTEROL SO4 HFA INHALER IH PRN (10:57)
[2020-12-29 12:17] LABS: CHLORIDE 113 mmol/L (98-107); SODIUM 148 mmol/L (136-145)
[2020-12-29 12:19] LABS: HEMATOCRIT 35.9 % (32.4-45.2); HEMOGLOBIN 11.9 GM/dL (10.7-15.3); MCH 29.2 pg (25.7-33.7); MEAN CELL VOLUME 88.6 fl (80-96); MEAN PLT VOLUME 9.3 fl (7.5-11.1); PLATELET COUNT 205 K/MM3 (134-434); RBC 4.06 M/mm3 (3.60-5.2); RDW 15.6 % (11.6-15.6); WHITE BLOOD COUNT 5.3 K/mm3 (4.0-10.0)
[2020-12-29 12:20] LABS: CALCIUM 8.6 mg/dL (8.5-10.1)
[2020-12-29 12:21] LABS: ALBUMIN 2.8 g/dl (3.4-5.0); BLOOD UREA NITROGEN 10.5 mg/dL (7-18); CO2 31 mmol/L (21-32); GLUCOSE,RANDOM 103 mg/dL (74-106)
[2020-12-29 12:24] LABS: CREATININE 0.8 mg/dL (0.55-1.3); SGOT/AST 10 U/L (15-37); SGPT/ALT 15 U/L (13-61)
[2020-12-29 12:26] LABS: BILIRUBIN,TOTAL 0.4 mg/dL (0.2-1); TOT PROT 5.3 g/dl (6.4-8.2)
[2020-12-29 12:27] LABS: ALK PHOS 82 U/L (45-117)
[2020-12-29 12:35] LABS: ANION GAP 5 MMOL/L (8-16)
[2020-12-29] MEDS ORDERED: POTASSIUM CHLORIDE ORAL LIQUID 20 MEQ/15 ML PO ONE ×3 (13:21→23:45)
[2020-12-29] MEDS: CITALOPRAM HYDROBROMIDE 20 MG TABLET PO SCH (14:34)
[2020-12-29] MEDS: ARIPiprazole 15 MG TABLET PO SCH (15:15)
[2020-12-29] MEDS: THIAMINE HCL 100 MG TABLET (FP) PO SCH (22:29)
[2020-12-29] MEDS: MELATONIN 5 MG TABLETS PO SCH (22:30)
[2020-12-30] MEDS: chlordiazePOXIDE HCL 25 MG CAPSULE PO SCH ×5 (07:00→22:40)
[2020-12-30] MEDS: hydrOXYzine PAMOATE 25 MG CAPSULE (FP) PO SCH ×2 (07:01→07:21)
[2020-12-30] MEDS ORDERED: hydrOXYzine PAMOATE 25 MG CAPSULE (FP) PO PRN (07:26)
[2020-12-30] MEDS ORDERED: LOPERAMIDE HCL 2 MG CAPSULE PO PRN (07:26)
[2020-12-30] MEDS ORDERED: POTASSIUM CHLORIDE TABS 20 MEQ TABLET.ER (FP) PO SCH (10:00)
[2020-12-30 10:41] LABS: BLOOD UREA NITROGEN 6.8 mg/dL (7-18); CALCIUM 8.6 mg/dL (8.5-10.1)
[2020-12-30 10:45] LABS: CREATININE 0.7 mg/dL (0.55-1.3)
[2020-12-30] MEDS: CITALOPRAM HYDROBROMIDE 20 MG TABLET PO SCH (11:05)
[2020-12-30] MEDS: ARIPiprazole 15 MG TABLET PO SCH (11:06)
[2020-12-30] MEDS: PRENATAL VITAMINS W/ FOLIC ACID TABLET (FP) PO SCH (11:06)
[2020-12-30] MEDS: ALBUTEROL SO4 HFA INHALER IH PRN (11:06)
[2020-12-30] MEDS: NICOTINE 21 MG/24 HOURS TOPICAL PATCH TD SCH (11:06)
[2020-12-30] MEDS: BUDESONIDE/FORMETEROL FUMARATE 160/4.5 mcg INHALER IH SCH ×2 (11:06→22:40)
[2020-12-30] MEDS: THIAMINE HCL 100 MG TABLET (FP) PO SCH (22:40)
[2020-12-30] MEDS: MELATONIN 5 MG TABLETS PO SCH (22:40)
[2020-12-31] MEDS ORDERED: chlordiazePOXIDE HCL 10 MG CAPSULE PO PRN
[2020-12-31] MEDS: chlordiazePOXIDE HCL 10 MG CAPSULE PO SCH ×2 (06:17→10:30)
[2020-12-31] MEDS: CITALOPRAM HYDROBROMIDE 20 MG TABLET PO SCH (10:30)
[2020-12-31] MEDS: PRENATAL VITAMINS W/ FOLIC ACID TABLET (FP) PO SCH (10:30)
[2020-12-31] MEDS: NICOTINE 21 MG/24 HOURS TOPICAL PATCH TD SCH (10:30)
[2020-12-31] MEDS: BUDESONIDE/FORMETEROL FUMARATE 160/4.5 mcg INHALER IH SCH ×2 (10:30→23:13)
[2020-12-31] MEDS: ARIPiprazole 15 MG TABLET PO SCH (10:30)
[2020-12-31] MEDS ORDERED: PATIENT'S OWN MEDICATION (NON-FORMULARY) (Ipratropium/Albuterol Sulfate 1 PUFF Inhaler) IH SCH (13:00)
[2020-12-31] MEDS ORDERED: chlordiazePOXIDE HCL 10 MG CAPSULE PO SCH (22:00)
[2020-12-31] MEDS: THIAMINE HCL 100 MG TABLET (FP) PO SCH (23:14)
[2021-01-01 06:07] LABS: SARS-CoV-2 NAA Not Detected (Not Detected)
[2021-01-01] MEDS: chlordiazePOXIDE HCL 10 MG CAPSULE PO SCH ×2 (06:14→17:53)
[2021-01-01] MEDS: ALBUTEROL SO4 HFA INHALER IH PRN (10:04)
[2021-01-01] MEDS: BUDESONIDE/FORMETEROL FUMARATE 160/4.5 mcg INHALER IH SCH ×2 (10:04→23:36)
[2021-01-01] MEDS: PRENATAL VITAMINS W/ FOLIC ACID TABLET (FP) PO SCH (10:05)
[2021-01-01] MEDS: NICOTINE 21 MG/24 HOURS TOPICAL PATCH TD SCH (10:05)
[2021-01-01] MEDS: CITALOPRAM HYDROBROMIDE 20 MG TABLET PO SCH (10:05)
[2021-01-01] MEDS: ARIPiprazole 15 MG TABLET PO SCH (10:05)
[2021-01-01] MEDS: THIAMINE HCL 100 MG TABLET (FP) PO SCH (23:36)
[2021-01-02] MEDS ORDERED: chlordiazePOXIDE HCL 10 MG CAPSULE PO ONE (05:00)
[2021-01-02] MEDS: ARIPiprazole 15 MG TABLET PO SCH (09:41)
[2021-01-02] MEDS: BUDESONIDE/FORMETEROL FUMARATE 160/4.5 mcg INHALER IH SCH (09:41)
[2021-01-02] MEDS: PRENATAL VITAMINS W/ FOLIC ACID TABLET (FP) PO SCH (09:41)
[2021-01-02] MEDS: NICOTINE 21 MG/24 HOURS TOPICAL PATCH TD SCH (09:41)
[2021-01-02] MEDS: CITALOPRAM HYDROBROMIDE 20 MG TABLET PO SCH (09:41)
[2021-01-02 13:11] VITALS: BP 128/85; PULSE 61; TEMP 96.9
== END 2021-01-02 13:45 | disposition other institution (70) | DRG 897 ==
LOC: YASAS 11:22 → Y3N 13:47
PROVIDERS: ADMIT Allergy & Immunology; ATTEND Allergy & Immunology
PROC: HZ2ZZZZ Detoxification Services for Substance Abuse Treatment (ICD-10-PCS; principal; 2020-12-28)
DX: F10.230 Alcohol dependence with withdrawal, uncomplicated (principal); F14.20 Cocaine dependence, uncomplicated; F11.20 Opioid dependence, uncomplicated; F19.282 Other psychoactive substance dependence with psychoactive substance-induced sleep disorder; F31.81 Bipolar II disorder; F12.20 Cannabis dependence, uncomplicated; F17.210 Nicotine dependence, cigarettes, uncomplicated; F19.24 Other psychoactive substance dependence with psychoactive substance-induced mood disorder; E87.6 Hypokalemia; E88.09 Other disorders of plasma-protein metabolism, not elsewhere classified; E78.9 Disorder of lipoprotein metabolism, unspecified; K59.01 Slow transit constipation; B35.3 Tinea pedis; R03.0 Elevated blood-pressure reading, without diagnosis of hypertension; Z96.652 Presence of left artificial knee joint; Z91.410 Personal history of adult physical and sexual abuse; Z98.890 Other specified postprocedural states; Z88.0 Allergy status to penicillin; Z88.2 Allergy status to sulfonamides; Z88.8 Allergy status to other drugs, medicaments and biological substances; Z91.040 Latex allergy status
CPT/HCPCS: 36415; 80048; 80053; 85027; 86593; 86780; C9803; U0003; U0005

== ENCOUNTER 2021-01-02 14:00 | Inpatient (IN) | payer OTHER ==
[2021-01-02] MEDS ORDERED: IBUPROFEN 400 MG TABLET (FP) PO PRN (15:44)
[2021-01-02] MEDS ORDERED: guaiFENesin 200 MG/10 ML 10 ML UNIT-DOSE CUPS PO PRN (15:44)
[2021-01-02] MEDS ORDERED: MENTHOL/PHENOL 1 EACH UD MM PRN (15:44)
[2021-01-02] MEDS ORDERED: MAGNESIUM HYDROX 2400MG/30ML ORAL SUSPENSION 30 ML CUP PO PRN (15:44)
[2021-01-02] MEDS ORDERED: MAGNESIUM CITRATE 300 ML BOTTLE PO PRN (15:44)
[2021-01-02] MEDS ORDERED: NICOTINE POLACRILEX 2 MG GUM BUC PRN (15:44)
[2021-01-02] MEDS ORDERED: MAG HYDROX/AL HYDROX/SIMETH 30 ML UNIT-DOSE CUP PO PRN (15:44)
[2021-01-02] MEDS ORDERED: LOPERAMIDE HCL 2 MG CAPSULE PO PRN (15:44)
[2021-01-02] MEDS ORDERED: P-EPHED 60MG/TRIPROLIDI 2.5MG TABLET PO PRN (15:44)
[2021-01-02] MEDS ORDERED: ALBUTEROL SO4 HFA INHALER IH PRN (15:45)
[2021-01-02] MEDS: THIAMINE HCL 100 MG TABLET (FP) PO SCH (22:25)
[2021-01-02] MEDS: MELATONIN 5 MG TABLETS PO SCH (22:25)
[2021-01-02] MEDS: BUDESONIDE/FORMETEROL FUMARATE 160/4.5 mcg INHALER IH SCH (22:25)
[2021-01-02] MEDS: PANTOPRAZOLE 40 MG TABLET PO SCH (22:25)
[2021-01-03] MEDS: ACETAMINOPHEN 325 MG TABLET (FP) PO PRN (06:35)
[2021-01-03] MEDS: hydrOXYzine PAMOATE 25 MG CAPSULE (FP) PO PRN (06:36)
[2021-01-03] MEDS ORDERED: PATIENT'S OWN MEDICATION (NON-FORMULARY) (Ipratropium/Albuterol Sulfate 1 PUFF Inhaler) IH SCH (10:00)
[2021-01-03] MEDS: ARIPiprazole 15 MG TABLET PO SCH (10:22)
[2021-01-03] MEDS: PRENATAL VITAMINS W/ FOLIC ACID TABLET (FP) PO SCH (10:22)
[2021-01-03] MEDS: NICOTINE 7 MG/24 HOURS TOPICAL PATCH TD SCH (10:23)
[2021-01-03] MEDS: PANTOPRAZOLE 40 MG TABLET PO SCH ×2 (10:23→21:05)
[2021-01-03] MEDS: BUDESONIDE/FORMETEROL FUMARATE 160/4.5 mcg INHALER IH SCH ×2 (10:25→21:06)
[2021-01-03] MEDS: COLLOIDAL OATMEAL 1 BAR EACH TP PRN (10:27)
[2021-01-03] MEDS: MINERAL OIL/PETROLAT/WATER TOPICAL CREAM 113 GM JAR TP SCH ×2 (11:06→21:05)
[2021-01-03] MEDS: CITALOPRAM HYDROBROMIDE 20 MG TABLET PO SCH (11:06)
[2021-01-03] MEDS: METHOCARBAMOL 500 MG TABLET PO SCH ×2 (13:12→21:05)
[2021-01-03] MEDS: THIAMINE HCL 100 MG TABLET (FP) PO SCH (21:05)
[2021-01-03] MEDS: MELATONIN 5 MG TABLETS PO SCH (21:06)
[2021-01-04] MEDS: METHOCARBAMOL 500 MG TABLET PO SCH ×3 (07:15→22:05)
[2021-01-04] MEDS: BUDESONIDE/FORMETEROL FUMARATE 160/4.5 mcg INHALER IH SCH ×2 (10:14→22:04)
[2021-01-04] MEDS: PRENATAL VITAMINS W/ FOLIC ACID TABLET (FP) PO SCH (10:14)
[2021-01-04] MEDS: NICOTINE 7 MG/24 HOURS TOPICAL PATCH TD SCH (10:14)
[2021-01-04] MEDS: PANTOPRAZOLE 40 MG TABLET PO SCH ×2 (10:15→22:05)
[2021-01-04] MEDS: MINERAL OIL/PETROLAT/WATER TOPICAL CREAM 113 GM JAR TP SCH ×2 (10:15→22:05)
[2021-01-04] MEDS: CITALOPRAM HYDROBROMIDE 20 MG TABLET PO SCH (10:16)
[2021-01-04] MEDS: ARIPiprazole 15 MG TABLET PO SCH (11:55)
[2021-01-04] MEDS: [UNRECOGNIZED DRUG - OTHER] IH SCH (13:56)
[2021-01-04] MEDS: ALBUTEROL IH SCH (13:56)
[2021-01-04] MEDS: IPRATROPIUM IH SCH (13:56)
[2021-01-04] MEDS ORDERED: PT OWN MED DRAWER 7, Y5N ONE (20:01)
[2021-01-04] MEDS: MELATONIN 5 MG TABLETS PO SCH (22:05)
[2021-01-04] MEDS: THIAMINE HCL 100 MG TABLET (FP) PO SCH (22:05)
[2021-01-05] MEDS: METHOCARBAMOL 500 MG TABLET PO SCH ×3 (07:20→21:06)
[2021-01-05] MEDS: PRENATAL VITAMINS W/ FOLIC ACID TABLET (FP) PO SCH (10:46)
[2021-01-05] MEDS: PANTOPRAZOLE 40 MG TABLET PO SCH ×2 (10:46→21:06)
[2021-01-05] MEDS: BUDESONIDE/FORMETEROL FUMARATE 160/4.5 mcg INHALER IH SCH ×2 (10:47→21:05)
[2021-01-05] MEDS: IPRATROPIUM IH SCH (10:47)
[2021-01-05] MEDS: [UNRECOGNIZED DRUG - OTHER] IH SCH (10:47)
[2021-01-05] MEDS: CITALOPRAM HYDROBROMIDE 20 MG TABLET PO SCH (10:47)
[2021-01-05] MEDS: ALBUTEROL IH SCH (10:47)
[2021-01-05] MEDS: ARIPiprazole 15 MG TABLET PO SCH (10:48)
[2021-01-05] MEDS: MINERAL OIL/PETROLAT/WATER TOPICAL CREAM 113 GM JAR TP SCH ×2 (10:48→21:06)
[2021-01-05] MEDS: NICOTINE 7 MG/24 HOURS TOPICAL PATCH TD SCH (10:49)
[2021-01-05] MEDS: MELATONIN 5 MG TABLETS PO SCH (21:06)
[2021-01-05] MEDS: THIAMINE HCL 100 MG TABLET (FP) PO SCH (21:06)
[2021-01-06] MEDS: METHOCARBAMOL 500 MG TABLET PO SCH ×3 (06:19→21:02)
[2021-01-06] MEDS: PANTOPRAZOLE 40 MG TABLET PO SCH ×2 (10:28→21:02)
[2021-01-06] MEDS: ARIPiprazole 15 MG TABLET PO SCH (10:29)
[2021-01-06] MEDS: CITALOPRAM HYDROBROMIDE 20 MG TABLET PO SCH (10:29)
[2021-01-06] MEDS: MINERAL OIL/PETROLAT/WATER TOPICAL CREAM 113 GM JAR TP SCH ×2 (10:30→21:03)
[2021-01-06] MEDS: BUDESONIDE/FORMETEROL FUMARATE 160/4.5 mcg INHALER IH SCH ×2 (10:30→21:02)
[2021-01-06] MEDS: NICOTINE 7 MG/24 HOURS TOPICAL PATCH TD SCH (10:30)
[2021-01-06] MEDS: PRENATAL VITAMINS W/ FOLIC ACID TABLET (FP) PO SCH (10:30)
[2021-01-06] MEDS: NON-FORMULARY MED IH SCH ×2 (11:00→21:03)
[2021-01-06] MEDS: THIAMINE HCL 100 MG TABLET (FP) PO SCH (21:02)
[2021-01-06] MEDS: MELATONIN 5 MG TABLETS PO SCH (21:02)
[2021-01-07] MEDS: METHOCARBAMOL 500 MG TABLET PO SCH ×3 (06:33→21:09)
[2021-01-07] MEDS: NICOTINE 7 MG/24 HOURS TOPICAL PATCH TD SCH (10:23)
[2021-01-07] MEDS: PANTOPRAZOLE 40 MG TABLET PO SCH ×2 (10:23→21:09)
[2021-01-07] MEDS: NON-FORMULARY MED IH SCH ×2 (10:23→21:09)
[2021-01-07] MEDS: MINERAL OIL/PETROLAT/WATER TOPICAL CREAM 113 GM JAR TP SCH ×2 (10:24→21:10)
[2021-01-07] MEDS: PRENATAL VITAMINS W/ FOLIC ACID TABLET (FP) PO SCH (10:24)
[2021-01-07] MEDS: BUDESONIDE/FORMETEROL FUMARATE 160/4.5 mcg INHALER IH SCH ×2 (10:24→21:10)
[2021-01-07] MEDS: CITALOPRAM HYDROBROMIDE 20 MG TABLET PO SCH (10:25)
[2021-01-07] MEDS: ARIPiprazole 15 MG TABLET PO SCH (10:59)
[2021-01-07 13:00] LABS: SARS-CoV-2 NAA Not Detected
[2021-01-07] MEDS ORDERED: PT OWN MED DRAWER 7, Y5N ONE (19:57)
[2021-01-07] MEDS: THIAMINE HCL 100 MG TABLET (FP) PO SCH (21:09)
[2021-01-07] MEDS: MELATONIN 5 MG TABLETS PO SCH (21:10)
[2021-01-08] MEDS: METHOCARBAMOL 500 MG TABLET PO SCH ×3 (06:19→21:48)
[2021-01-08] MEDS ORDERED: PT OWN MED DRAWER 7, Y5N ONE ×3 (09:09→21:48)
[2021-01-08] MEDS: ARIPiprazole 15 MG TABLET PO SCH (09:21)
[2021-01-08] MEDS: PANTOPRAZOLE 40 MG TABLET PO SCH ×2 (09:21→21:48)
[2021-01-08] MEDS: NON-FORMULARY MED IH SCH ×2 (09:22→21:49)
[2021-01-08] MEDS: NICOTINE 7 MG/24 HOURS TOPICAL PATCH TD SCH (09:22)
[2021-01-08] MEDS: PRENATAL VITAMINS W/ FOLIC ACID TABLET (FP) PO SCH (09:22)
[2021-01-08] MEDS: MINERAL OIL/PETROLAT/WATER TOPICAL CREAM 113 GM JAR TP SCH ×2 (09:23→21:49)
[2021-01-08] MEDS ORDERED: JANSSEN COVID-19 VAC,AD26/PF 0.5 ML IM ONE (10:00)
[2021-01-08] MEDS: BUDESONIDE/FORMETEROL FUMARATE 160/4.5 mcg INHALER IH SCH ×2 (10:21→21:49)
[2021-01-08] MEDS: CITALOPRAM HYDROBROMIDE 20 MG TABLET PO SCH (10:22)
[2021-01-08] MEDS: NYSTATIN POWDER 100,000 UNITS/GM - 15 GM TOPICAL POWDER TP SCH ×2 (13:01→21:49)
[2021-01-08] MEDS: MELATONIN 5 MG TABLETS PO SCH (21:48)
[2021-01-08] MEDS: THIAMINE HCL 100 MG TABLET (FP) PO SCH (21:50)
[2021-01-09] MEDS: METHOCARBAMOL 500 MG TABLET PO SCH ×3 (06:11→21:07)
[2021-01-09] MEDS: PRENATAL VITAMINS W/ FOLIC ACID TABLET (FP) PO SCH (10:09)
[2021-01-09] MEDS: PANTOPRAZOLE 40 MG TABLET PO SCH ×2 (10:09→21:07)
[2021-01-09] MEDS: MINERAL OIL/PETROLAT/WATER TOPICAL CREAM 113 GM JAR TP SCH ×2 (10:09→21:08)
[2021-01-09] MEDS: NON-FORMULARY MED IH SCH ×2 (10:09→21:08)
[2021-01-09] MEDS: NICOTINE 7 MG/24 HOURS TOPICAL PATCH TD SCH (10:09)
[2021-01-09] MEDS: CITALOPRAM HYDROBROMIDE 20 MG TABLET PO SCH (10:10)
[2021-01-09] MEDS: ARIPiprazole 15 MG TABLET PO SCH (10:10)
[2021-01-09] MEDS: BUDESONIDE/FORMETEROL FUMARATE 160/4.5 mcg INHALER IH SCH ×2 (10:10→21:08)
[2021-01-09] MEDS: NYSTATIN POWDER 100,000 UNITS/GM - 15 GM TOPICAL POWDER TP SCH ×2 (10:11→22:11)
[2021-01-09] MEDS: ACETAMINOPHEN 325 MG TABLET (FP) PO PRN (10:39)
[2021-01-09] MEDS: SUVOREXANT 10 MG TABLET PO PRN (21:07)
[2021-01-09] MEDS: THIAMINE HCL 100 MG TABLET (FP) PO SCH (21:07)
[2021-01-09] MEDS: hydrOXYzine PAMOATE 25 MG CAPSULE (FP) PO PRN (21:07)
[2021-01-10] MEDS: METHOCARBAMOL 500 MG TABLET PO SCH ×3 (06:24→21:49)
[2021-01-10] MEDS: hydrOXYzine PAMOATE 25 MG CAPSULE (FP) PO PRN ×4 (06:24→21:49)
[2021-01-10] MEDS: ACETAMINOPHEN 325 MG TABLET (FP) PO PRN (08:58)
[2021-01-10] MEDS: PANTOPRAZOLE 40 MG TABLET PO SCH ×2 (10:31→21:49)
[2021-01-10] MEDS: CITALOPRAM HYDROBROMIDE 20 MG TABLET PO SCH (10:31)
[2021-01-10] MEDS: ARIPiprazole 15 MG TABLET PO SCH (10:31)
[2021-01-10] MEDS: PRENATAL VITAMINS W/ FOLIC ACID TABLET (FP) PO SCH (10:33)
[2021-01-10] MEDS: MINERAL OIL/PETROLAT/WATER TOPICAL CREAM 113 GM JAR TP SCH ×2 (10:33→21:50)
[2021-01-10] MEDS: NYSTATIN POWDER 100,000 UNITS/GM - 15 GM TOPICAL POWDER TP SCH ×2 (10:33→21:49)
[2021-01-10] MEDS: BUDESONIDE/FORMETEROL FUMARATE 160/4.5 mcg INHALER IH SCH ×2 (10:33→21:48)
[2021-01-10] MEDS: NON-FORMULARY MED IH SCH ×2 (10:34→21:49)
[2021-01-10] MEDS: NICOTINE 7 MG/24 HOURS TOPICAL PATCH TD SCH (10:34)
[2021-01-10] MEDS: SUVOREXANT 10 MG TABLET PO PRN (21:49)
[2021-01-10] MEDS: THIAMINE HCL 100 MG TABLET (FP) PO SCH (21:49)
[2021-01-11] MEDS: hydrOXYzine PAMOATE 25 MG CAPSULE (FP) PO PRN ×4 (06:28→21:16)
[2021-01-11] MEDS: METHOCARBAMOL 500 MG TABLET PO SCH ×3 (06:28→21:11)
[2021-01-11] MEDS: ACETAMINOPHEN 325 MG TABLET (FP) PO PRN (06:46)
[2021-01-11] MEDS: MINERAL OIL/PETROLAT/WATER TOPICAL CREAM 113 GM JAR TP SCH ×2 (10:14→21:12)
[2021-01-11] MEDS: PRENATAL VITAMINS W/ FOLIC ACID TABLET (FP) PO SCH (10:14)
[2021-01-11] MEDS: NICOTINE 7 MG/24 HOURS TOPICAL PATCH TD SCH (10:14)
[2021-01-11] MEDS: PANTOPRAZOLE 40 MG TABLET PO SCH ×2 (10:15→21:11)
[2021-01-11] MEDS: CITALOPRAM HYDROBROMIDE 20 MG TABLET PO SCH (10:15)
[2021-01-11] MEDS: ARIPiprazole 15 MG TABLET PO SCH (10:15)
[2021-01-11] MEDS: NON-FORMULARY MED IH SCH ×2 (10:16→21:12)
[2021-01-11] MEDS: BUDESONIDE/FORMETEROL FUMARATE 160/4.5 mcg INHALER IH SCH ×2 (10:16→21:12)
[2021-01-11] MEDS: NYSTATIN POWDER 100,000 UNITS/GM - 15 GM TOPICAL POWDER TP SCH ×2 (10:16→21:12)
[2021-01-11] MEDS ORDERED: PT OWN MED DRAWER 7, Y5N ONE (21:11)
[2021-01-11] MEDS: THIAMINE HCL 100 MG TABLET (FP) PO SCH (21:12)
[2021-01-11] MEDS: COLLOIDAL OATMEAL 1 BAR EACH TP PRN (21:13)
[2021-01-11] MEDS: SUVOREXANT 10 MG TABLET PO PRN (21:16)
[2021-01-12] MEDS: ACETAMINOPHEN 325 MG TABLET (FP) PO PRN (06:20)
[2021-01-12] MEDS: hydrOXYzine PAMOATE 25 MG CAPSULE (FP) PO PRN ×4 (06:21→22:00)
[2021-01-12] MEDS: METHOCARBAMOL 500 MG TABLET PO SCH ×3 (06:21→21:59)
[2021-01-12] MEDS: BUDESONIDE/FORMETEROL FUMARATE 160/4.5 mcg INHALER IH SCH ×2 (10:25→21:59)
[2021-01-12] MEDS: PANTOPRAZOLE 40 MG TABLET PO SCH ×2 (10:26→21:59)
[2021-01-12] MEDS: CITALOPRAM HYDROBROMIDE 20 MG TABLET PO SCH (10:26)
[2021-01-12] MEDS: PRENATAL VITAMINS W/ FOLIC ACID TABLET (FP) PO SCH (10:26)
[2021-01-12] MEDS: ARIPiprazole 15 MG TABLET PO SCH (10:26)
[2021-01-12] MEDS: NYSTATIN POWDER 100,000 UNITS/GM - 15 GM TOPICAL POWDER TP SCH ×2 (10:27→21:56)
[2021-01-12] MEDS: NON-FORMULARY MED IH SCH ×2 (10:27→21:59)
[2021-01-12] MEDS: MINERAL OIL/PETROLAT/WATER TOPICAL CREAM 113 GM JAR TP SCH ×2 (10:28→21:55)
[2021-01-12] MEDS: NICOTINE 7 MG/24 HOURS TOPICAL PATCH TD SCH (10:28)
[2021-01-12] MEDS: THIAMINE HCL 100 MG TABLET (FP) PO SCH (21:56)
[2021-01-12] MEDS: SUVOREXANT 10 MG TABLET PO PRN (21:59)
[2021-01-13] MEDS: METHOCARBAMOL 500 MG TABLET PO SCH ×3 (06:16→21:15)
[2021-01-13] MEDS: hydrOXYzine PAMOATE 25 MG CAPSULE (FP) PO PRN ×3 (06:17→21:14)
[2021-01-13] MEDS: ARIPiprazole 15 MG TABLET PO SCH (10:34)
[2021-01-13] MEDS: CITALOPRAM HYDROBROMIDE 20 MG TABLET PO SCH (10:34)
[2021-01-13] MEDS: PANTOPRAZOLE 40 MG TABLET PO SCH ×2 (10:34→21:15)
[2021-01-13] MEDS: NYSTATIN POWDER 100,000 UNITS/GM - 15 GM TOPICAL POWDER TP SCH ×2 (10:34→21:16)
[2021-01-13] MEDS: PRENATAL VITAMINS W/ FOLIC ACID TABLET (FP) PO SCH (10:34)
[2021-01-13] MEDS: NICOTINE 7 MG/24 HOURS TOPICAL PATCH TD SCH (10:34)
[2021-01-13] MEDS: MINERAL OIL/PETROLAT/WATER TOPICAL CREAM 113 GM JAR TP SCH ×2 (10:34→21:16)
[2021-01-13] MEDS: BUDESONIDE/FORMETEROL FUMARATE 160/4.5 mcg INHALER IH SCH ×2 (10:35→21:13)
[2021-01-13] MEDS: NON-FORMULARY MED IH SCH ×2 (10:35→21:13)
[2021-01-13] MEDS: THIAMINE HCL 100 MG TABLET (FP) PO SCH (21:14)
[2021-01-13] MEDS: SUVOREXANT 10 MG TABLET PO PRN (21:15)
[2021-01-14] MEDS: hydrOXYzine PAMOATE 25 MG CAPSULE (FP) PO PRN ×3 (06:22→22:03)
[2021-01-14] MEDS: METHOCARBAMOL 500 MG TABLET PO SCH ×3 (06:22→22:03)
[2021-01-14] MEDS: NICOTINE 7 MG/24 HOURS TOPICAL PATCH TD SCH (10:39)
[2021-01-14] MEDS: MINERAL OIL/PETROLAT/WATER TOPICAL CREAM 113 GM JAR TP SCH ×2 (10:39→22:03)
[2021-01-14] MEDS: NON-FORMULARY MED IH SCH ×2 (10:39→22:03)
[2021-01-14] MEDS: BUDESONIDE/FORMETEROL FUMARATE 160/4.5 mcg INHALER IH SCH ×2 (10:39→22:03)
[2021-01-14] MEDS: PRENATAL VITAMINS W/ FOLIC ACID TABLET (FP) PO SCH (10:39)
[2021-01-14] MEDS: NYSTATIN POWDER 100,000 UNITS/GM - 15 GM TOPICAL POWDER TP SCH ×2 (10:39→22:03)
[2021-01-14] MEDS: ARIPiprazole 15 MG TABLET PO SCH (10:40)
[2021-01-14] MEDS: PANTOPRAZOLE 40 MG TABLET PO SCH ×2 (10:40→22:03)
[2021-01-14] MEDS: CITALOPRAM HYDROBROMIDE 20 MG TABLET PO SCH (10:40)
[2021-01-14] MEDS: THIAMINE HCL 100 MG TABLET (FP) PO SCH (22:04)
[2021-01-14] MEDS: SUVOREXANT 10 MG TABLET PO PRN (22:04)
[2021-01-15] MEDS: hydrOXYzine PAMOATE 25 MG CAPSULE (FP) PO PRN ×3 (06:37→21:09)
[2021-01-15] MEDS: METHOCARBAMOL 500 MG TABLET PO SCH ×3 (06:37→21:08)
[2021-01-15] MEDS: PRENATAL VITAMINS W/ FOLIC ACID TABLET (FP) PO SCH (10:31)
[2021-01-15] MEDS: NICOTINE 7 MG/24 HOURS TOPICAL PATCH TD SCH (10:31)
[2021-01-15] MEDS: MINERAL OIL/PETROLAT/WATER TOPICAL CREAM 113 GM JAR TP SCH ×2 (10:31→21:09)
[2021-01-15] MEDS: NYSTATIN POWDER 100,000 UNITS/GM - 15 GM TOPICAL POWDER TP SCH ×2 (10:31→21:11)
[2021-01-15] MEDS: ARIPiprazole 15 MG TABLET PO SCH (10:32)
[2021-01-15] MEDS: BUDESONIDE/FORMETEROL FUMARATE 160/4.5 mcg INHALER IH SCH ×2 (10:32→21:09)
[2021-01-15] MEDS: PANTOPRAZOLE 40 MG TABLET PO SCH ×2 (10:32→21:09)
[2021-01-15] MEDS: NON-FORMULARY MED IH SCH ×2 (10:32→21:09)
[2021-01-15] MEDS: CITALOPRAM HYDROBROMIDE 20 MG TABLET PO SCH (10:32)
[2021-01-15] MEDS ORDERED: PT OWN MED DRAWER 7, Y5N ONE (20:02)
[2021-01-15] MEDS: THIAMINE HCL 100 MG TABLET (FP) PO SCH (21:11)
[2021-01-15] MEDS ORDERED: SUVOREXANT 10 MG TABLET PO ONE (22:37)
[2021-01-16] MEDS: hydrOXYzine PAMOATE 25 MG CAPSULE (FP) PO PRN (06:06)
[2021-01-16] MEDS: METHOCARBAMOL 500 MG TABLET PO SCH (06:06)
[2021-01-16 07:09] VITALS: BP 135/75; PULSE 66; TEMP 97.7
[2021-01-16] MEDS: CITALOPRAM HYDROBROMIDE 20 MG TABLET PO SCH (09:22)
[2021-01-16] MEDS: PANTOPRAZOLE 40 MG TABLET PO SCH (09:23)
[2021-01-16] MEDS: MINERAL OIL/PETROLAT/WATER TOPICAL CREAM 113 GM JAR TP SCH (09:23)
[2021-01-16] MEDS: NICOTINE 7 MG/24 HOURS TOPICAL PATCH TD SCH (09:23)
[2021-01-16] MEDS: PRENATAL VITAMINS W/ FOLIC ACID TABLET (FP) PO SCH (09:23)
[2021-01-16] MEDS: ARIPiprazole 15 MG TABLET PO SCH (09:23)
[2021-01-16] MEDS: NON-FORMULARY MED IH SCH (09:24)
[2021-01-16] MEDS: BUDESONIDE/FORMETEROL FUMARATE 160/4.5 mcg INHALER IH SCH (09:24)
[2021-01-16] MEDS: NYSTATIN POWDER 100,000 UNITS/GM - 15 GM TOPICAL POWDER TP SCH (09:24)
== END 2021-01-16 09:35 | disposition home or self-care (01) | DRG 895 ==
LOC: YASAS 14:00 → Y5N 14:01
PROVIDERS: ADMIT Allergy & Immunology; ATTEND Allergy & Immunology
PROC: HZ42ZZZ Group Counseling for Substance Abuse Treatment, Cognitive-Behavioral (ICD-10-PCS; principal; 2021-01-02)
DX: F10.20 Alcohol dependence, uncomplicated (principal); F14.20 Cocaine dependence, uncomplicated; F17.210 Nicotine dependence, cigarettes, uncomplicated; F31.9 Bipolar disorder, unspecified; E11.9 Type 2 diabetes mellitus without complications; J45.909 Unspecified asthma, uncomplicated; K21.9 Gastro-esophageal reflux disease without esophagitis; M14.60 Charcot's joint, unspecified site; Z96.643 Presence of artificial hip joint, bilateral; Z98.890 Other specified postprocedural states; Z86.19 Personal history of other infectious and parasitic diseases; Z88.0 Allergy status to penicillin; Z88.8 Allergy status to other drugs, medicaments and biological substances; Z91.040 Latex allergy status
CPT/HCPCS: 0031A; 82962; 91303; C9803; U0003; U0005

== ENCOUNTER 2021-08-26 12:02 | Inpatient (IN) | payer OTHER ==
[2021-08-26] MEDS ORDERED: IBUPROFEN 400 MG TABLET (FP) PO PRN (12:57)
[2021-08-26] MEDS ORDERED: MAG HYDROX/AL HYDROX/SIMETH 30 ML UNIT-DOSE CUP PO PRN (12:57)
[2021-08-26] MEDS ORDERED: BISMUTH SUBSALICYLATE 524 MG/30 ML PO PRN (12:57)
[2021-08-26] MEDS ORDERED: MAGNESIUM CITRATE 300 ML BOTTLE PO PRN (12:57)
[2021-08-26] MEDS ORDERED: MENTHOL/PHENOL 1 EACH UD MM PRN (12:57)
[2021-08-26] MEDS ORDERED: chlordiazePOXIDE HCL 25 MG CAPSULE PO PRN (12:57)
[2021-08-26] MEDS ORDERED: ONDANSETRON *ODT* 4 MG TABLET SL PRN (12:57)
[2021-08-26] MEDS ORDERED: MAGNESIUM HYDROX 2400MG/30ML ORAL SUSPENSION 30 ML CUP PO PRN (12:57)
[2021-08-26] MEDS ORDERED: NICOTINE 10 MG CARTRIDGE (INHALER) IH PRN (12:57)
[2021-08-26] MEDS ORDERED: ACETAMINOPHEN 325 MG TABLET (FP) PO PRN ×2 (12:57)
[2021-08-26 13:09] VITALS: BMI 25.0
[2021-08-26 15:49] LABS: CALCIUM 9.5 mg/dL (8.5-10.1)
[2021-08-26 15:50] LABS: ALBUMIN 3.9 g/dl (3.4-5.0)
[2021-08-26 15:53] LABS: CREATININE 0.8 mg/dL (0.55-1.3)
[2021-08-26 15:55] LABS: BILIRUBIN,TOTAL 0.4 mg/dL (0.2-1); TOT PROT 6.8 g/dl (6.4-8.2)
[2021-08-26 16:09] LABS: HEMATOCRIT 43.2 % (32.4-45.2); HEMOGLOBIN 14.5 GM/dL (10.7-15.3); MCH 30.1 pg (25.7-33.7); MCHC 33.5 g/dl (32.0-36.0); MEAN CELL VOLUME 89.7 fl (80-96); MEAN PLT VOLUME 8.8 fl (7.5-11.1); PLATELET COUNT 239 10^3/uL (134-434); RBC 4.82 M/mm3 (3.60-5.2); RDW 14.6 % (11.6-15.6); WHITE BLOOD COUNT 5.7 K/mm3 (4.0-10.0)
[2021-08-26] MEDS ORDERED: PATIENT'S OWN MEDICATION (NON-FORMULARY) (Pregabalin [Lyrica -] 150 MG Capsule) PO SCH (22:00)
[2021-08-27] MEDS: PREGABALIN 100 MG CAPSULE PO SCH ×3 (00:11→22:43)
[2021-08-27] MEDS: MELATONIN 5 MG TABLETS PO SCH ×2 (00:13→22:43)
[2021-08-27] MEDS: NICOTINE 14 MG/24 HOURS TOPICAL PATCH TD SCH ×2 (00:13→11:09)
[2021-08-27] MEDS: BUDESONIDE/FORMETEROL FUMARATE 160/4.5 mcg INHALER IH SCH ×3 (00:14→23:49)
[2021-08-27] MEDS: PRENATAL VITAMINS W/ FOLIC ACID TABLET (FP) PO SCH ×2 (00:14→11:08)
[2021-08-27] MEDS: hydrOXYzine PAMOATE 25 MG CAPSULE (FP) PO SCH ×7 (00:15→22:44)
[2021-08-27] MEDS: THIAMINE HCL 100 MG TABLET (FP) PO SCH ×2 (00:16→22:44)
[2021-08-27] MEDS: chlordiazePOXIDE HCL 25 MG CAPSULE PO SCH ×6 (00:17→22:45)
[2021-08-27] MEDS ORDERED: PATIENT'S OWN MEDICATION (NON-FORMULARY) (Ipratropium/Albuterol Sulfate 1 PUFF Inhaler) IH SCH (10:00)
[2021-08-27] MEDS: METHOCARBAMOL 500 MG TABLET PO PRN (11:08)
[2021-08-27] MEDS: PANTOPRAZOLE 40 MG TABLET PO SCH (11:09)
[2021-08-27] MEDS: TIOTROPIUM BROMIDE 2.5 MCG (SPIRIVA) RESPIMAT INHALER IH SCH (12:52)
[2021-08-27] MEDS: ALBUTEROL SO4 HFA INHALER IH PRN (12:53)
[2021-08-27] MEDS ORDERED: POTASSIUM CHLORIDE TABS 20 MEQ TABLET.ER (FP) PO ONE ×2 (14:49→22:00)
[2021-08-27] MEDS ORDERED: POTASSIUM CHLORIDE ORAL LIQUID 20 MEQ/15 ML PO ONE (22:00)
[2021-08-28] MEDS: hydrOXYzine PAMOATE 25 MG CAPSULE (FP) PO SCH ×5 (06:45→21:39)
[2021-08-28] MEDS: chlordiazePOXIDE HCL 25 MG CAPSULE PO SCH ×4 (06:45→22:15)
[2021-08-28] MEDS: METHOCARBAMOL 500 MG TABLET PO PRN (11:06)
[2021-08-28] MEDS: PANTOPRAZOLE 40 MG TABLET PO SCH (11:06)
[2021-08-28] MEDS: PRENATAL VITAMINS W/ FOLIC ACID TABLET (FP) PO SCH (11:06)
[2021-08-28] MEDS: PREGABALIN 100 MG CAPSULE PO SCH ×2 (11:06→21:39)
[2021-08-28] MEDS: BUDESONIDE/FORMETEROL FUMARATE 160/4.5 mcg INHALER IH SCH ×2 (11:07→21:38)
[2021-08-28] MEDS: NICOTINE 14 MG/24 HOURS TOPICAL PATCH TD SCH (11:07)
[2021-08-28] MEDS: TIOTROPIUM BROMIDE 2.5 MCG (SPIRIVA) RESPIMAT INHALER IH SCH (11:07)
[2021-08-28] MEDS: MELATONIN 5 MG TABLETS PO SCH (21:38)
[2021-08-28] MEDS: THIAMINE HCL 100 MG TABLET (FP) PO SCH (21:39)
[2021-08-29] MEDS ORDERED: chlordiazePOXIDE HCL 10 MG CAPSULE PO PRN
[2021-08-29] MEDS: chlordiazePOXIDE HCL 10 MG CAPSULE PO SCH ×4 (06:45→22:12)
[2021-08-29] MEDS: hydrOXYzine PAMOATE 25 MG CAPSULE (FP) PO SCH ×5 (06:50→22:11)
[2021-08-29] MEDS: ALBUTEROL SO4 HFA INHALER IH PRN (06:55)
[2021-08-29] MEDS: PRENATAL VITAMINS W/ FOLIC ACID TABLET (FP) PO SCH (10:35)
[2021-08-29] MEDS: PREGABALIN 100 MG CAPSULE PO SCH ×2 (10:35→22:11)
[2021-08-29] MEDS: METHOCARBAMOL 500 MG TABLET PO PRN (10:35)
[2021-08-29] MEDS: PANTOPRAZOLE 40 MG TABLET PO SCH (10:36)
[2021-08-29] MEDS: BUDESONIDE/FORMETEROL FUMARATE 160/4.5 mcg INHALER IH SCH (10:37)
[2021-08-29] MEDS: TIOTROPIUM BROMIDE 2.5 MCG (SPIRIVA) RESPIMAT INHALER IH SCH (10:37)
[2021-08-29] MEDS: NICOTINE 14 MG/24 HOURS TOPICAL PATCH TD SCH (10:37)
[2021-08-29] MEDS: THIAMINE HCL 100 MG TABLET (FP) PO SCH (22:11)
[2021-08-29] MEDS: MELATONIN 5 MG TABLETS PO SCH (22:11)
[2021-08-30] MEDS: BUDESONIDE/FORMETEROL FUMARATE 160/4.5 mcg INHALER IH SCH ×2 (00:41→10:34)
[2021-08-30] MEDS ORDERED: chlordiazePOXIDE HCL 10 MG CAPSULE PO SCH (05:00)
[2021-08-30] MEDS: hydrOXYzine PAMOATE 25 MG CAPSULE (FP) PO SCH ×3 (06:01→13:51)
[2021-08-30] MEDS: METHOCARBAMOL 500 MG TABLET PO PRN (06:02)
[2021-08-30] MEDS: ALBUTEROL SO4 HFA INHALER IH PRN ×2 (06:04→10:32)
[2021-08-30] MEDS: TIOTROPIUM BROMIDE 2.5 MCG (SPIRIVA) RESPIMAT INHALER IH SCH (10:32)
[2021-08-30] MEDS: PREGABALIN 100 MG CAPSULE PO SCH (10:33)
[2021-08-30] MEDS: PANTOPRAZOLE 40 MG TABLET PO SCH (10:33)
[2021-08-30] MEDS: PRENATAL VITAMINS W/ FOLIC ACID TABLET (FP) PO SCH (10:33)
[2021-08-30] MEDS: NICOTINE 14 MG/24 HOURS TOPICAL PATCH TD SCH (10:34)
[2021-08-30 13:42] VITALS: BP 110/64; PULSE 66; TEMP 96.9
[2021-08-31] MEDS ORDERED: chlordiazePOXIDE HCL 10 MG CAPSULE PO ONE (05:00)
== END 2021-08-30 16:27 | disposition home or self-care (01) | DRG 897 ==
LOC: YASAS 12:02 → Y6N 19:02
PROVIDERS: ADMIT Allergy & Immunology; ATTEND Allergy & Immunology
PROC: HZ2ZZZZ Detoxification Services for Substance Abuse Treatment (ICD-10-PCS; principal; 2021-08-26)
DX: F10.230 Alcohol dependence with withdrawal, uncomplicated (principal); F14.20 Cocaine dependence, uncomplicated; F19.282 Other psychoactive substance dependence with psychoactive substance-induced sleep disorder; F31.81 Bipolar II disorder; F17.210 Nicotine dependence, cigarettes, uncomplicated; F19.24 Other psychoactive substance dependence with psychoactive substance-induced mood disorder; F41.9 Anxiety disorder, unspecified; J45.20 Mild intermittent asthma, uncomplicated; K21.9 Gastro-esophageal reflux disease without esophagitis; M17.0 Bilateral primary osteoarthritis of knee; M14.60 Charcot's joint, unspecified site; Z96.652 Presence of left artificial knee joint; Z88.8 Allergy status to other drugs, medicaments and biological substances; Z99.89 Dependence on other enabling machines and devices
CPT/HCPCS: 36415; 80053; 84132; 85027; 86593; 86780; C9803; U0003; U0005

== ENCOUNTER 2021-10-14 10:58 | Inpatient (IN) | payer OTHER ==
[2021-10-14] MEDS ORDERED: NICOTINE 10 MG CARTRIDGE (INHALER) IH PRN (11:09)
[2021-10-14] MEDS ORDERED: IBUPROFEN 400 MG TABLET (FP) PO PRN (11:09)
[2021-10-14] MEDS ORDERED: MAGNESIUM HYDROX 2400MG/30ML ORAL SUSPENSION 30 ML CUP PO PRN (11:09)
[2021-10-14] MEDS ORDERED: P-EPHED 60MG/TRIPROLIDI 2.5MG TABLET PO PRN (11:09)
[2021-10-14] MEDS ORDERED: guaiFENesin 200 MG/10 ML 10 ML UNIT-DOSE CUPS PO PRN (11:09)
[2021-10-14] MEDS ORDERED: MAGNESIUM CITRATE 300 ML BOTTLE PO PRN (11:09)
[2021-10-14 11:28] VITALS: BMI 23.1
[2021-10-14] MEDS ORDERED: hydrOXYzine PAMOATE 25 MG CAPSULE (FP) PO ONE (14:36)
[2021-10-14] MEDS: hydrOXYzine PAMOATE 25 MG CAPSULE (FP) PO SCH ×3 (14:38→21:34)
[2021-10-14] MEDS: METHOCARBAMOL 500 MG TABLET PO PRN ×2 (14:38→21:38)
[2021-10-14] MEDS ORDERED: COLLOIDAL OATMEAL 1 BAR EACH TP PRN (14:39)
[2021-10-14] MEDS: PRENATAL VITAMINS W/ FOLIC ACID TABLET (FP) PO SCH (15:08)
[2021-10-14] MEDS: NICOTINE 7 MG/24 HOURS TOPICAL PATCH TD SCH (15:08)
[2021-10-14] MEDS ORDERED: cloNIDine HCL 0.1 MG TABLET PO PRN (15:39)
[2021-10-14] MEDS ORDERED: cloNIDine HCL 0.1 MG TABLET PO STA (15:40)
[2021-10-14] MEDS: THIAMINE HCL 100 MG TABLET (FP) PO SCH (21:34)
[2021-10-14] MEDS: PREGABALIN 100 MG CAPSULE PO SCH (21:37)
[2021-10-14] MEDS: BUDESONIDE/FORMETEROL FUMARATE 160/4.5 mcg INHALER IH SCH (21:38)
[2021-10-14] MEDS ORDERED: MELATONIN 5 MG TABLETS PO SCH ×2 (22:00)
[2021-10-15] MEDS: METHOCARBAMOL 500 MG TABLET PO PRN ×3 (02:14→23:41)
[2021-10-15] MEDS: hydrOXYzine PAMOATE 25 MG CAPSULE (FP) PO SCH (06:02)
[2021-10-15] MEDS ORDERED: PATIENT'S OWN MEDICATION (NON-FORMULARY) (Ipratropium/Albuterol Sulfate 1 PUFF Inhaler) IH SCH (10:00)
[2021-10-15] MEDS: PANTOPRAZOLE 40 MG TABLET PO SCH (10:48)
[2021-10-15] MEDS: BUDESONIDE/FORMETEROL FUMARATE 160/4.5 mcg INHALER IH SCH ×2 (10:48→21:24)
[2021-10-15] MEDS: PRENATAL VITAMINS W/ FOLIC ACID TABLET (FP) PO SCH (10:48)
[2021-10-15] MEDS: PREGABALIN 100 MG CAPSULE PO SCH ×2 (10:49→21:26)
[2021-10-15] MEDS: NICOTINE 7 MG/24 HOURS TOPICAL PATCH TD SCH (10:50)
[2021-10-15] MEDS: hydrOXYzine PAMOATE 25 MG CAPSULE (FP) PO PRN ×3 (10:52→23:41)
[2021-10-15 12:48] LABS: HEMATOCRIT 37.7 % (32.4-45.2); HEMOGLOBIN 12.2 GM/dL (10.7-15.3); MCH 29.5 pg (25.7-33.7); MCHC 32.3 g/dl (32.0-36.0); MEAN CELL VOLUME 91.3 fl (80-96); MEAN PLT VOLUME 9.1 fl (7.5-11.1); PLATELET COUNT 213 10^3/uL (134-434); RBC 4.13 M/mm3 (3.60-5.2); RDW 15.5 % (11.6-15.6); WHITE BLOOD COUNT 5.4 K/mm3 (4.0-10.0)
[2021-10-15 13:42] LABS: SYPHILIS W/ RPR CONF REACTIVE (NONREACTIVE)
[2021-10-15] MEDS: MAG HYDROX/AL HYDROX/SIMETH 30 ML UNIT-DOSE CUP PO PRN (14:21)
[2021-10-15] MEDS: TIOTROPIUM BROMIDE 2.5 MCG (SPIRIVA) RESPIMAT INHALER IH SCH (14:21)
[2021-10-15 18:36] LABS: HIV INTERPRETATION NEGATIVE (NEGATIVE)
[2021-10-15] MEDS: SUVOREXANT 10 MG TABLET PO PRN (21:26)
[2021-10-15] MEDS: THIAMINE HCL 100 MG TABLET (FP) PO SCH (21:26)
[2021-10-16] MEDS: PREGABALIN 100 MG CAPSULE PO SCH ×2 (10:37→21:21)
[2021-10-16] MEDS: TIOTROPIUM BROMIDE 2.5 MCG (SPIRIVA) RESPIMAT INHALER IH SCH (10:37)
[2021-10-16] MEDS: BUDESONIDE/FORMETEROL FUMARATE 160/4.5 mcg INHALER IH SCH ×2 (10:37→21:20)
[2021-10-16] MEDS: NICOTINE 7 MG/24 HOURS TOPICAL PATCH TD SCH (10:38)
[2021-10-16] MEDS: PRENATAL VITAMINS W/ FOLIC ACID TABLET (FP) PO SCH (10:38)
[2021-10-16] MEDS: PANTOPRAZOLE 40 MG TABLET PO SCH (10:38)
[2021-10-16] MEDS: METHOCARBAMOL 500 MG TABLET PO PRN ×2 (10:40→17:20)
[2021-10-16] MEDS: hydrOXYzine PAMOATE 25 MG CAPSULE (FP) PO PRN ×2 (10:40→17:21)
[2021-10-16] MEDS: LACTULOSE 20 GM/30 ML UDC (FOR ORAL USE ONLY) PO SCH (12:23)
[2021-10-16 17:34] LABS: URINE APPEARANCE CLEAR; URINE BILIRUBIN NEGATIVE (NEGATIVE); URINE COLOR YELLOW; URINE GLUCOSE (UA) NEGATIVE (NEGATIVE); URINE KETONE NEGATIVE (NEGATIVE); URINE LEUK ESTERASE NEGATIVE (NEGATIVE); URINE NITRITE NEGATIVE (NEGATIVE); URINE PROTEIN NEGATIVE (NEGATIVE); URINE UROBILINOGEN 0.2 mg/dL (0.2-1.0)
[2021-10-16] MEDS: THIAMINE HCL 100 MG TABLET (FP) PO SCH (21:21)
[2021-10-16] MEDS: SUVOREXANT 10 MG TABLET PO PRN (21:21)
[2021-10-16] MEDS: MAG HYDROX/AL HYDROX/SIMETH 30 ML UNIT-DOSE CUP PO PRN (23:42)
[2021-10-17 00:10] LABS: SARS-CoV-2 NAA Not Detected (Not Detected)
[2021-10-17] MEDS: METHOCARBAMOL 500 MG TABLET PO PRN ×3 (01:29→21:26)
[2021-10-17] MEDS: hydrOXYzine PAMOATE 25 MG CAPSULE (FP) PO PRN ×2 (01:29→17:17)
[2021-10-17] MEDS: LOPERAMIDE HCL 2 MG CAPSULE PO PRN (09:22)
[2021-10-17] MEDS: LACTULOSE 20 GM/30 ML UDC (FOR ORAL USE ONLY) PO SCH (09:23)
[2021-10-17] MEDS: BUDESONIDE/FORMETEROL FUMARATE 160/4.5 mcg INHALER IH SCH ×2 (11:20→21:29)
[2021-10-17] MEDS: TIOTROPIUM BROMIDE 2.5 MCG (SPIRIVA) RESPIMAT INHALER IH SCH (11:20)
[2021-10-17] MEDS: PANTOPRAZOLE 40 MG TABLET PO SCH (11:21)
[2021-10-17] MEDS: PRENATAL VITAMINS W/ FOLIC ACID TABLET (FP) PO SCH (11:21)
[2021-10-17] MEDS: PREGABALIN 100 MG CAPSULE PO SCH ×2 (11:21→21:26)
[2021-10-17] MEDS: NICOTINE 7 MG/24 HOURS TOPICAL PATCH TD SCH (11:22)
[2021-10-17 12:07] LABS: BLOOD UREA NITROGEN 14.8 mg/dL (7-18); CALCIUM 9.8 mg/dL (8.5-10.1)
[2021-10-17 12:08] LABS: ALBUMIN 3.7 g/dl (3.4-5.0)
[2021-10-17 12:09] LABS: CREATININE 0.8 mg/dL (0.55-1.3)
[2021-10-17 12:12] LABS: BILIRUBIN,TOTAL 0.4 mg/dL (0.2-1); TOT PROT 6.6 g/dl (6.4-8.2)
[2021-10-17] MEDS ORDERED: LACTULOSE 20 GM/30 ML UDC (FOR ORAL USE ONLY) PO PRN (16:39)
[2021-10-17] MEDS: MAG HYDROX/AL HYDROX/SIMETH 30 ML UNIT-DOSE CUP PO PRN (17:16)
[2021-10-17] MEDS: HYDROCORTISONE 2.5% TOPICAL CREAM 30 GM TUBE TP PRN (19:31)
[2021-10-17] MEDS: cloNIDine HCL 0.1 MG TABLET PO SCH (21:26)
[2021-10-17] MEDS: THIAMINE HCL 100 MG TABLET (FP) PO SCH (21:26)
[2021-10-17] MEDS: SUVOREXANT 10 MG TABLET PO PRN (21:28)
[2021-10-17] MEDS: SIMETHICONE 80 MG TAB.CHEW (FP) PO PRN (23:20)
[2021-10-18] MEDS: hydrOXYzine PAMOATE 25 MG CAPSULE (FP) PO PRN ×3 (01:55→17:21)
[2021-10-18] MEDS: SIMETHICONE 80 MG TAB.CHEW (FP) PO PRN ×2 (06:10→13:29)
[2021-10-18] MEDS: PRENATAL VITAMINS W/ FOLIC ACID TABLET (FP) PO SCH (10:09)
[2021-10-18] MEDS: PREGABALIN 100 MG CAPSULE PO SCH ×2 (10:09→22:35)
[2021-10-18] MEDS: PANTOPRAZOLE 40 MG TABLET PO SCH (10:09)
[2021-10-18] MEDS: NICOTINE 7 MG/24 HOURS TOPICAL PATCH TD SCH (10:10)
[2021-10-18] MEDS: cloNIDine HCL 0.1 MG TABLET PO SCH ×2 (10:10→22:35)
[2021-10-18] MEDS: BUDESONIDE/FORMETEROL FUMARATE 160/4.5 mcg INHALER IH SCH ×2 (10:11→22:37)
[2021-10-18] MEDS: TIOTROPIUM BROMIDE 2.5 MCG (SPIRIVA) RESPIMAT INHALER IH SCH (10:12)
[2021-10-18] MEDS: METHOCARBAMOL 500 MG TABLET PO PRN ×2 (10:13→17:21)
[2021-10-18] MEDS: HYDROCORTISONE 2.5% TOPICAL CREAM 30 GM TUBE TP PRN (10:14)
[2021-10-18] MEDS: THIAMINE HCL 100 MG TABLET (FP) PO SCH (22:35)
[2021-10-18] MEDS: SUVOREXANT 10 MG TABLET PO PRN (22:40)
[2021-10-19] MEDS: hydrOXYzine PAMOATE 25 MG CAPSULE (FP) PO PRN ×3 (02:03→22:01)
[2021-10-19] MEDS: METHOCARBAMOL 500 MG TABLET PO PRN ×3 (02:03→21:57)
[2021-10-19] MEDS: BUDESONIDE/FORMETEROL FUMARATE 160/4.5 mcg INHALER IH SCH ×2 (10:18→22:03)
[2021-10-19] MEDS: PRENATAL VITAMINS W/ FOLIC ACID TABLET (FP) PO SCH (10:18)
[2021-10-19] MEDS: TIOTROPIUM BROMIDE 2.5 MCG (SPIRIVA) RESPIMAT INHALER IH SCH (10:18)
[2021-10-19] MEDS: PREGABALIN 100 MG CAPSULE PO SCH ×2 (10:19→21:57)
[2021-10-19] MEDS: PANTOPRAZOLE 40 MG TABLET PO SCH (10:19)
[2021-10-19] MEDS: NICOTINE 7 MG/24 HOURS TOPICAL PATCH TD SCH (10:20)
[2021-10-19] MEDS: cloNIDine HCL 0.1 MG TABLET PO SCH ×2 (10:21→21:58)
[2021-10-19] MEDS: SIMETHICONE 80 MG TAB.CHEW (FP) PO PRN ×2 (10:24→19:12)
[2021-10-19 14:06] LABS: SARS-CoV-2 NAA Not Detected (Not Detected)
[2021-10-19] MEDS: SUVOREXANT 10 MG TABLET PO PRN (21:58)
[2021-10-19] MEDS: THIAMINE HCL 100 MG TABLET (FP) PO SCH (21:58)
[2021-10-20] MEDS: MAG HYDROX/AL HYDROX/SIMETH 30 ML UNIT-DOSE CUP PO PRN ×3 (02:10→19:12)
[2021-10-20] MEDS: SIMETHICONE 80 MG TAB.CHEW (FP) PO PRN ×2 (07:36→21:21)
[2021-10-20] MEDS: cloNIDine HCL 0.1 MG TABLET PO SCH ×2 (10:37→21:20)
[2021-10-20] MEDS: PRENATAL VITAMINS W/ FOLIC ACID TABLET (FP) PO SCH (10:37)
[2021-10-20] MEDS: PREGABALIN 100 MG CAPSULE PO SCH ×2 (10:38→21:20)
[2021-10-20] MEDS: TIOTROPIUM BROMIDE 2.5 MCG (SPIRIVA) RESPIMAT INHALER IH SCH (10:38)
[2021-10-20] MEDS: BUDESONIDE/FORMETEROL FUMARATE 160/4.5 mcg INHALER IH SCH ×2 (10:38→21:19)
[2021-10-20] MEDS: PANTOPRAZOLE 40 MG TABLET PO SCH (10:38)
[2021-10-20] MEDS: NICOTINE 7 MG/24 HOURS TOPICAL PATCH TD SCH (10:38)
[2021-10-20] MEDS: hydrOXYzine PAMOATE 25 MG CAPSULE (FP) PO PRN ×2 (10:40→19:11)
[2021-10-20] MEDS: METHOCARBAMOL 500 MG TABLET PO PRN ×2 (10:40→19:11)
[2021-10-20] MEDS: ALBUTEROL SO4 HFA INHALER IH PRN (13:55)
[2021-10-20] MEDS: THIAMINE HCL 100 MG TABLET (FP) PO SCH (21:20)
[2021-10-20] MEDS: SUVOREXANT 15 MG TABLET PO PRN (21:20)
[2021-10-21] MEDS: MAG HYDROX/AL HYDROX/SIMETH 30 ML UNIT-DOSE CUP PO PRN (06:27)
[2021-10-21] MEDS: hydrOXYzine PAMOATE 25 MG CAPSULE (FP) PO PRN ×3 (06:29→21:37)
[2021-10-21] MEDS: METHOCARBAMOL 500 MG TABLET PO PRN ×3 (06:29→21:37)
[2021-10-21] MEDS: cloNIDine HCL 0.1 MG TABLET PO SCH ×2 (10:32→21:37)
[2021-10-21] MEDS: PANTOPRAZOLE 40 MG TABLET PO SCH (10:33)
[2021-10-21] MEDS: PRENATAL VITAMINS W/ FOLIC ACID TABLET (FP) PO SCH (10:33)
[2021-10-21] MEDS: BUDESONIDE/FORMETEROL FUMARATE 160/4.5 mcg INHALER IH SCH ×2 (10:33→21:38)
[2021-10-21] MEDS: NICOTINE 7 MG/24 HOURS TOPICAL PATCH TD SCH (10:33)
[2021-10-21] MEDS: PREGABALIN 100 MG CAPSULE PO SCH ×2 (10:33→21:37)
[2021-10-21] MEDS: TIOTROPIUM BROMIDE 2.5 MCG (SPIRIVA) RESPIMAT INHALER IH SCH (10:33)
[2021-10-21] MEDS: SIMETHICONE 80 MG TAB.CHEW (FP) PO PRN (10:36)
[2021-10-21] MEDS: HYDROCORTISONE 2.5% TOPICAL CREAM 30 GM TUBE TP PRN (10:37)
[2021-10-21] MEDS: LIDOCAINE 5% TOPICAL PATCH TP SCH (11:15)
[2021-10-21] MEDS: MINERAL OIL/PETROLAT/WATER TOPICAL CREAM 113 GM JAR TP SCH (14:25)
[2021-10-21] MEDS: SUVOREXANT 15 MG TABLET PO PRN (21:36)
[2021-10-21] MEDS: THIAMINE HCL 100 MG TABLET (FP) PO SCH (21:37)
[2021-10-21] MEDS: METHYL SALICYLATE/MENTHOL OINT 30 GM TUBE TP SCH (21:37)
[2021-10-21] MEDS: LIDOCAINE PATCH REMOVAL MC SCH (21:38)
[2021-10-22] MEDS: MAG HYDROX/AL HYDROX/SIMETH 30 ML UNIT-DOSE CUP PO PRN (04:02)
[2021-10-22] MEDS: LOPERAMIDE HCL 2 MG CAPSULE PO PRN (04:02)
[2021-10-22] MEDS: ALBUTEROL SO4 HFA INHALER IH PRN (09:06)
[2021-10-22] MEDS: PRENATAL VITAMINS W/ FOLIC ACID TABLET (FP) PO SCH (10:26)
[2021-10-22] MEDS: cloNIDine HCL 0.1 MG TABLET PO SCH ×2 (10:26→21:24)
[2021-10-22] MEDS: PANTOPRAZOLE 40 MG TABLET PO SCH (10:27)
[2021-10-22] MEDS: LIDOCAINE 5% TOPICAL PATCH TP SCH (10:27)
[2021-10-22] MEDS: PREGABALIN 100 MG CAPSULE PO SCH ×2 (10:27→21:23)
[2021-10-22] MEDS: BUDESONIDE/FORMETEROL FUMARATE 160/4.5 mcg INHALER IH SCH ×2 (10:28→21:28)
[2021-10-22] MEDS: NICOTINE 7 MG/24 HOURS TOPICAL PATCH TD SCH (10:28)
[2021-10-22] MEDS: TIOTROPIUM BROMIDE 2.5 MCG (SPIRIVA) RESPIMAT INHALER IH SCH (10:28)
[2021-10-22] MEDS: MINERAL OIL/PETROLAT/WATER TOPICAL CREAM 113 GM JAR TP SCH (10:29)
[2021-10-22] MEDS: METHOCARBAMOL 500 MG TABLET PO PRN ×2 (10:30→21:22)
[2021-10-22] MEDS: hydrOXYzine PAMOATE 25 MG CAPSULE (FP) PO PRN ×2 (10:30→21:28)
[2021-10-22] MEDS: SIMETHICONE 80 MG TAB.CHEW (FP) PO PRN (14:12)
[2021-10-22] MEDS: THIAMINE HCL 100 MG TABLET (FP) PO SCH (21:23)
[2021-10-22] MEDS: LIDOCAINE PATCH REMOVAL MC SCH (21:24)
[2021-10-22] MEDS: SUVOREXANT 15 MG TABLET PO PRN (21:27)
[2021-10-22] MEDS: METHYL SALICYLATE/MENTHOL OINT 30 GM TUBE TP SCH (21:53)
[2021-10-23] MEDS: MAG HYDROX/AL HYDROX/SIMETH 30 ML UNIT-DOSE CUP PO PRN (06:17)
[2021-10-23] MEDS: PRENATAL VITAMINS W/ FOLIC ACID TABLET (FP) PO SCH (10:07)
[2021-10-23] MEDS: PREGABALIN 100 MG CAPSULE PO SCH ×2 (10:07→21:33)
[2021-10-23] MEDS: TIOTROPIUM BROMIDE 2.5 MCG (SPIRIVA) RESPIMAT INHALER IH SCH (10:07)
[2021-10-23] MEDS: BUDESONIDE/FORMETEROL FUMARATE 160/4.5 mcg INHALER IH SCH ×2 (10:07→21:32)
[2021-10-23] MEDS: LIDOCAINE 5% TOPICAL PATCH TP SCH (10:08)
[2021-10-23] MEDS: PANTOPRAZOLE 40 MG TABLET PO SCH (10:08)
[2021-10-23] MEDS: SIMETHICONE 80 MG TAB.CHEW (FP) PO PRN ×2 (10:08→21:37)
[2021-10-23] MEDS: cloNIDine HCL 0.1 MG TABLET PO SCH ×2 (10:10→21:35)
[2021-10-23] MEDS: METHOCARBAMOL 500 MG TABLET PO PRN ×2 (10:11→21:33)
[2021-10-23] MEDS: hydrOXYzine PAMOATE 25 MG CAPSULE (FP) PO PRN ×2 (10:11→21:33)
[2021-10-23] MEDS: NICOTINE 7 MG/24 HOURS TOPICAL PATCH TD SCH (10:12)
[2021-10-23] MEDS: MINERAL OIL/PETROLAT/WATER TOPICAL CREAM 113 GM JAR TP SCH (10:12)
[2021-10-23] MEDS: ACETAMINOPHEN 325 MG TABLET (FP) PO PRN (13:11)
[2021-10-23] MEDS: THIAMINE HCL 100 MG TABLET (FP) PO SCH (21:32)
[2021-10-23] MEDS: SUVOREXANT 15 MG TABLET PO PRN (21:35)
[2021-10-23] MEDS: LIDOCAINE PATCH REMOVAL MC SCH (21:35)
[2021-10-23] MEDS: METHYL SALICYLATE/MENTHOL OINT 30 GM TUBE TP SCH (21:36)
[2021-10-24] MEDS: MAG HYDROX/AL HYDROX/SIMETH 30 ML UNIT-DOSE CUP PO PRN ×2 (01:53→10:41)
[2021-10-24] MEDS: MINERAL OIL/PETROLAT/WATER TOPICAL CREAM 113 GM JAR TP SCH (10:36)
[2021-10-24] MEDS: NICOTINE 7 MG/24 HOURS TOPICAL PATCH TD SCH (10:37)
[2021-10-24] MEDS: cloNIDine HCL 0.1 MG TABLET PO SCH ×2 (10:39→21:28)
[2021-10-24] MEDS: METHOCARBAMOL 500 MG TABLET PO PRN ×3 (10:39→21:29)
[2021-10-24] MEDS: hydrOXYzine PAMOATE 25 MG CAPSULE (FP) PO PRN ×3 (10:39→21:29)
[2021-10-24] MEDS: PANTOPRAZOLE 40 MG TABLET PO SCH (10:40)
[2021-10-24] MEDS: PRENATAL VITAMINS W/ FOLIC ACID TABLET (FP) PO SCH (10:40)
[2021-10-24] MEDS: LIDOCAINE 5% TOPICAL PATCH TP SCH (10:40)
[2021-10-24] MEDS: PREGABALIN 100 MG CAPSULE PO SCH ×2 (10:40→21:24)
[2021-10-24] MEDS: TIOTROPIUM BROMIDE 2.5 MCG (SPIRIVA) RESPIMAT INHALER IH SCH (10:41)
[2021-10-24] MEDS: BUDESONIDE/FORMETEROL FUMARATE 160/4.5 mcg INHALER IH SCH ×2 (10:41→21:23)
[2021-10-24] MEDS: LIDOCAINE PATCH REMOVAL MC SCH (21:24)
[2021-10-24] MEDS: METHYL SALICYLATE/MENTHOL OINT 30 GM TUBE TP SCH (21:24)
[2021-10-24] MEDS: THIAMINE HCL 100 MG TABLET (FP) PO SCH (21:24)
[2021-10-24] MEDS: SUVOREXANT 15 MG TABLET PO PRN (21:27)
[2021-10-25] MEDS: MAG HYDROX/AL HYDROX/SIMETH 30 ML UNIT-DOSE CUP PO PRN (07:23)
[2021-10-25] MEDS: cloNIDine HCL 0.1 MG TABLET PO SCH ×2 (10:19→21:57)
[2021-10-25] MEDS: PRENATAL VITAMINS W/ FOLIC ACID TABLET (FP) PO SCH (10:19)
[2021-10-25] MEDS: MINERAL OIL/PETROLAT/WATER TOPICAL CREAM 113 GM JAR TP SCH (10:19)
[2021-10-25] MEDS: LIDOCAINE 5% TOPICAL PATCH TP SCH (10:19)
[2021-10-25] MEDS: PANTOPRAZOLE 40 MG TABLET PO SCH (10:20)
[2021-10-25] MEDS: NICOTINE 7 MG/24 HOURS TOPICAL PATCH TD SCH (10:20)
[2021-10-25] MEDS: BUDESONIDE/FORMETEROL FUMARATE 160/4.5 mcg INHALER IH SCH ×2 (10:20→21:55)
[2021-10-25] MEDS: TIOTROPIUM BROMIDE 2.5 MCG (SPIRIVA) RESPIMAT INHALER IH SCH (10:20)
[2021-10-25] MEDS: PREGABALIN 100 MG CAPSULE PO SCH ×2 (10:20→21:57)
[2021-10-25] MEDS: hydrOXYzine PAMOATE 25 MG CAPSULE (FP) PO PRN ×2 (10:22→17:23)
[2021-10-25] MEDS: METHOCARBAMOL 500 MG TABLET PO PRN ×3 (10:22→21:56)
[2021-10-25] MEDS: THIAMINE HCL 100 MG TABLET (FP) PO SCH (21:56)
[2021-10-25] MEDS: SIMETHICONE 80 MG TAB.CHEW (FP) PO PRN (21:56)
[2021-10-25] MEDS: METHYL SALICYLATE/MENTHOL OINT 30 GM TUBE TP SCH (21:57)
[2021-10-25] MEDS: SUVOREXANT 15 MG TABLET PO PRN (21:57)
[2021-10-25] MEDS: LIDOCAINE PATCH REMOVAL MC SCH (21:57)
[2021-10-26] MEDS: hydrOXYzine PAMOATE 25 MG CAPSULE (FP) PO PRN ×3 (00:38→17:55)
[2021-10-26] MEDS: HYDROCORTISONE 2.5% TOPICAL CREAM 30 GM TUBE TP PRN (06:51)
[2021-10-26] MEDS: MAG HYDROX/AL HYDROX/SIMETH 30 ML UNIT-DOSE CUP PO PRN (09:33)
[2021-10-26] MEDS: BUDESONIDE/FORMETEROL FUMARATE 160/4.5 mcg INHALER IH SCH ×2 (10:55→21:54)
[2021-10-26] MEDS: NICOTINE 7 MG/24 HOURS TOPICAL PATCH TD SCH (10:55)
[2021-10-26] MEDS: PRENATAL VITAMINS W/ FOLIC ACID TABLET (FP) PO SCH (10:55)
[2021-10-26] MEDS: PREGABALIN 100 MG CAPSULE PO SCH ×2 (10:56→21:55)
[2021-10-26] MEDS: TIOTROPIUM BROMIDE 2.5 MCG (SPIRIVA) RESPIMAT INHALER IH SCH (10:56)
[2021-10-26] MEDS: PANTOPRAZOLE 40 MG TABLET PO SCH (10:56)
[2021-10-26] MEDS: LIDOCAINE 5% TOPICAL PATCH TP SCH (10:56)
[2021-10-26] MEDS: cloNIDine HCL 0.1 MG TABLET PO SCH ×2 (10:57→21:55)
[2021-10-26] MEDS: MINERAL OIL/PETROLAT/WATER TOPICAL CREAM 113 GM JAR TP SCH (10:59)
[2021-10-26] MEDS: METHOCARBAMOL 500 MG TABLET PO PRN ×2 (10:59→17:55)
[2021-10-26] MEDS: ACETAMINOPHEN 325 MG TABLET (FP) PO PRN (14:01)
[2021-10-26] MEDS: SIMETHICONE 80 MG TAB.CHEW (FP) PO PRN (21:55)
[2021-10-26] MEDS: METHYL SALICYLATE/MENTHOL OINT 30 GM TUBE TP SCH (21:55)
[2021-10-26] MEDS: THIAMINE HCL 100 MG TABLET (FP) PO SCH (21:55)
[2021-10-26] MEDS: SUVOREXANT 15 MG TABLET PO PRN (21:55)
[2021-10-26] MEDS: LIDOCAINE PATCH REMOVAL MC SCH (21:55)
[2021-10-26] MEDS ORDERED: SUVOREXANT 5 MG TABLET PO PRN (22:00)
[2021-10-27] MEDS: ALBUTEROL SO4 HFA INHALER IH PRN ×2 (03:46→21:23)
[2021-10-27] MEDS: PRENATAL VITAMINS W/ FOLIC ACID TABLET (FP) PO SCH (10:35)
[2021-10-27] MEDS: BUDESONIDE/FORMETEROL FUMARATE 160/4.5 mcg INHALER IH SCH ×2 (10:35→21:27)
[2021-10-27] MEDS: PREGABALIN 100 MG CAPSULE PO SCH ×2 (10:36→21:24)
[2021-10-27] MEDS: PANTOPRAZOLE 40 MG TABLET PO SCH (10:36)
[2021-10-27] MEDS: LIDOCAINE 5% TOPICAL PATCH TP SCH (10:37)
[2021-10-27] MEDS: cloNIDine HCL 0.1 MG TABLET PO SCH ×2 (10:37→21:30)
[2021-10-27] MEDS: TIOTROPIUM BROMIDE 2.5 MCG (SPIRIVA) RESPIMAT INHALER IH SCH (10:38)
[2021-10-27] MEDS: MINERAL OIL/PETROLAT/WATER TOPICAL CREAM 113 GM JAR TP SCH (10:38)
[2021-10-27] MEDS: HYDROCORTISONE 2.5% TOPICAL CREAM 30 GM TUBE TP PRN (10:39)
[2021-10-27] MEDS: NICOTINE 7 MG/24 HOURS TOPICAL PATCH TD SCH (10:39)
[2021-10-27] MEDS: hydrOXYzine PAMOATE 25 MG CAPSULE (FP) PO PRN ×2 (10:41→21:24)
[2021-10-27] MEDS: METHOCARBAMOL 500 MG TABLET PO PRN ×2 (10:41→21:27)
[2021-10-27] MEDS: THIAMINE HCL 100 MG TABLET (FP) PO SCH (21:24)
[2021-10-27] MEDS: METHYL SALICYLATE/MENTHOL OINT 30 GM TUBE TP SCH (21:24)
[2021-10-27] MEDS: LIDOCAINE PATCH REMOVAL MC SCH (21:25)
[2021-10-28] MEDS: hydrOXYzine PAMOATE 25 MG CAPSULE (FP) PO PRN (06:03)
[2021-10-28] MEDS: METHOCARBAMOL 500 MG TABLET PO PRN (06:04)
[2021-10-28 07:09] VITALS: TEMP 96.9
[2021-10-28 09:12] VITALS: BP 130/55; PULSE 89
[2021-10-28] MEDS: PANTOPRAZOLE 40 MG TABLET PO SCH (09:20)
[2021-10-28] MEDS: PRENATAL VITAMINS W/ FOLIC ACID TABLET (FP) PO SCH (09:20)
[2021-10-28] MEDS: PREGABALIN 100 MG CAPSULE PO SCH (09:20)
[2021-10-28] MEDS: MINERAL OIL/PETROLAT/WATER TOPICAL CREAM 113 GM JAR TP SCH (09:21)
[2021-10-28] MEDS: BUDESONIDE/FORMETEROL FUMARATE 160/4.5 mcg INHALER IH SCH (09:21)
[2021-10-28] MEDS: LIDOCAINE 5% TOPICAL PATCH TP SCH (09:21)
[2021-10-28] MEDS: cloNIDine HCL 0.1 MG TABLET PO SCH (09:21)
[2021-10-28] MEDS: NICOTINE 7 MG/24 HOURS TOPICAL PATCH TD SCH (09:22)
[2021-10-28] MEDS: TIOTROPIUM BROMIDE 2.5 MCG (SPIRIVA) RESPIMAT INHALER IH SCH (09:22)
== END 2021-10-28 09:45 | disposition home or self-care (01) | DRG 895 ==
LOC: YASAS 10:58 → Y5N 14:34
PROVIDERS: ADMIT Allergy & Immunology; ATTEND Allergy & Immunology
PROC: HZ42ZZZ Group Counseling for Substance Abuse Treatment, Cognitive-Behavioral (ICD-10-PCS; principal; 2021-10-14)
DX: F10.20 Alcohol dependence, uncomplicated (principal); F14.20 Cocaine dependence, uncomplicated; F19.282 Other psychoactive substance dependence with psychoactive substance-induced sleep disorder; F12.20 Cannabis dependence, uncomplicated; F17.210 Nicotine dependence, cigarettes, uncomplicated; F41.9 Anxiety disorder, unspecified; F03.90 Unspecified dementia, unspecified severity, without behavioral disturbance, psychotic disturbance, mood disturbance, and anxiety; F19.24 Other psychoactive substance dependence with psychoactive substance-induced mood disorder; F43.10 Post-traumatic stress disorder, unspecified; J45.909 Unspecified asthma, uncomplicated; M41.9 Scoliosis, unspecified; M17.0 Bilateral primary osteoarthritis of knee; K21.9 Gastro-esophageal reflux disease without esophagitis; M25.512 Pain in left shoulder; Z88.0 Allergy status to penicillin; Z88.1 Allergy status to other antibiotic agents; Z88.2 Allergy status to sulfonamides; Z88.8 Allergy status to other drugs, medicaments and biological substances; Z91.410 Personal history of adult physical and sexual abuse; Z90.710 Acquired absence of both cervix and uterus; Z96.652 Presence of left artificial knee joint; Z86.19 Personal history of other infectious and parasitic diseases; Z56.0 Unemployment, unspecified
CPT/HCPCS: 36415; 80053; 81003; 82962; 85027; 86593; 86780; 86803; 87389; C9803; J0735; U0003; U0005

== ENCOUNTER 2024-01-31 11:23 | Inpatient (IN) | payer OTHER ==
[2024-01-31 11:52] VITALS: BMI 22.1
[2024-01-31] MEDS ORDERED: MAGNESIUM HYDROX 2400MG/30ML ORAL SUSPENSION 30 ML CUP PO PRN (12:05)
[2024-01-31] MEDS ORDERED: NICOTINE POLACRILEX 2 MG LOZENGE BC PRN (12:05)
[2024-01-31] MEDS ORDERED: DICYCLOMINE HCL 10 MG CAPSULE PO PRN (12:05)
[2024-01-31] MEDS ORDERED: P-EPHED 60MG/TRIPROLIDI 2.5MG TABLET PO PRN (12:05)
[2024-01-31] MEDS ORDERED: LOPERAMIDE HCL 2 MG CAPSULE PO PRN (12:05)
[2024-01-31] MEDS ORDERED: ONDANSETRON *ODT* 4 MG TABLET SL PRN (12:05)
[2024-01-31] MEDS ORDERED: BENZOCAINE/MENTHOL (CHLORASEPTIC ) LOZENGE MM PRN (12:05)
[2024-01-31] MEDS ORDERED: NICOTINE POLACRILEX 2 MG GUM BUC PRN (12:05)
[2024-01-31] MEDS ORDERED: guaiFENesin 600 MG TABLET.ER (FP) PO PRN (12:05)
[2024-01-31] MEDS ORDERED: BENZONATATE 200 MG CAPSULE PO PRN (12:05)
[2024-01-31] MEDS ORDERED: POLYETHYLENE GLYCOL (HEALTHYLAX) 3350 17 GM PACKET PO PRN (12:05)
[2024-01-31] MEDS ORDERED: hydrOXYzine PAMOATE 25 MG CAPSULE (FP) PO ONE (12:58)
[2024-01-31] MEDS: hydrOXYzine PAMOATE 25 MG CAPSULE (FP) PO PRN (13:03)
[2024-01-31] MEDS: ALBUTEROL SO4 HFA INHALER IH PRN (22:24)
[2024-01-31] MEDS: THIAMINE 100 MG TABLET PO SCH (22:25)
[2024-01-31] MEDS: METHOCARBAMOL 500 MG TABLET PO PRN (22:25)
[2024-01-31] MEDS: MELATONIN 5 MG TABLETS PO SCH (22:26)
[2024-01-31] MEDS: BUDESONIDE/FORMETEROL FUMARATE 80/4.5 mcg INHALER IH SCH (23:54)
[2024-02-01] MEDS: PANTOPRAZOLE 40 MG TABLET PO SCH (09:07)
[2024-02-01] MEDS: PRENATAL VITAMINS W/ FOLIC ACID TABLET (FP) PO SCH (09:08)
[2024-02-01] MEDS ORDERED: PATIENT'S OWN MEDICATION (NON-FORMULARY) (Ipratropium/Albuterol Sulfate 1 PUFF Inhaler) IH SCH (10:00)
[2024-02-01] MEDS ORDERED: diazePAM 5 MG TABLET PO PRN (10:13)
[2024-02-01] MEDS: diazePAM 5 MG TABLET PO SCH (10:20)
[2024-02-01 12:26] LABS: CHLORIDE 111 mmol/L (98-107); POTASSIUM 3.9 mmol/L (3.5-5.1); SODIUM 144 mmol/L (136-145)
[2024-02-01 12:29] LABS: HEMATOCRIT 38.3 % (32.4-45.2); HEMOGLOBIN 12.9 GM/dL (10.7-15.3); MCH 30.3 pg (25.7-33.7); MCHC 33.8 g/dl (32.0-36.0); MEAN CELL VOLUME 89.8 fl (80-96); PLATELET COUNT 181 10^3/uL (134-434); RBC 4.27 M/mm3 (3.60-5.2); RDW 14.6 % (11.6-15.6); WHITE BLOOD COUNT 4.7 K/mm3 (4.0-10.0)
[2024-02-01 12:30] LABS: ALBUMIN 3.3 g/dl (3.4-5.0); ANION GAP 5 mmol/L (4-13); BLOOD UREA NITROGEN 15.9 mg/dL (7-18); CO2 28 mmol/L (21-32); GLUCOSE,RANDOM 89 mg/dL (74-106)
[2024-02-01 12:33] LABS: CREATININE 0.7 mg/dL (0.55-1.3); SGOT/AST 13 U/L (15-37); SGPT/ALT 18 U/L (13-61)
[2024-02-01 12:35] LABS: BILIRUBIN,TOTAL 0.9 mg/dL (0.2-1); TOT PROT 5.5 g/dl (6.4-8.2)
[2024-02-01 12:36] LABS: ALK PHOS 67 U/L (45-117)
[2024-02-02] MEDS: traZODone HCL 50 MG TABLET (FP) PO PRN (22:18)
[2024-02-03] MEDS: diazePAM 5 MG TABLET PO SCH (06:02)
[2024-02-03] MEDS: MAG HYDROX/AL HYDROX/SIMETH 30 ML UNIT-DOSE CUP PO PRN (18:15)
[2024-02-03] MEDS: ACETAMINOPHEN 325 MG TABLET (FP) PO PRN (20:53)
[2024-02-04] MEDS: diazePAM 5 MG TABLET PO SCH (06:28)
[2024-02-04 20:45] VITALS: PULSE 60
[2024-02-05 06:21] VITALS: RESP 16
[2024-02-05] MEDS: diazePAM 5 MG TABLET PO ONE (07:00)
[2024-02-05 09:56] VITALS: BP 135/73; TEMP 97.3
== END 2024-02-05 11:38 | disposition home or self-care (01) | DRG 897 ==
LOC: YASAS 11:23 → Y6N 12:05 → UNDOADMIN 13:01 → Y6N 13:21 → Y3N 13:21
PROVIDERS: ADMIT Allergy & Immunology; ATTEND Surgery
PROC: HZ2ZZZZ Detoxification Services for Substance Abuse Treatment (ICD-10-PCS; principal; 2024-01-31)
DX: F10.230 Alcohol dependence with withdrawal, uncomplicated (principal); F31.81 Bipolar II disorder; F12.20 Cannabis dependence, uncomplicated; F17.210 Nicotine dependence, cigarettes, uncomplicated; F03.90 Unspecified dementia, unspecified severity, without behavioral disturbance, psychotic disturbance, mood disturbance, and anxiety; F41.9 Anxiety disorder, unspecified; J45.909 Unspecified asthma, uncomplicated; K21.9 Gastro-esophageal reflux disease without esophagitis; M17.0 Bilateral primary osteoarthritis of knee; M41.9 Scoliosis, unspecified; R26.89 Other abnormalities of gait and mobility; Z99.89 Dependence on other enabling machines and devices; Z88.0 Allergy status to penicillin; Z88.8 Allergy status to other drugs, medicaments and biological substances
CPT/HCPCS: 36415; 73140-TC-LT-FY; 80053; 80305; 80307; 85027; 86593; 86780; 93005; 93010